=== PATIENT | male | born 1940 | race Caucasian/White ===

== ENCOUNTER 2017-05-06 14:55 | Inpatient (IN) | payer MEDICARE ==
[2017-05-06 16:36] LABS: Basophils % (Auto) 0.3 % (0.0-1.8); Eosinophils % (Auto) 1.6 % (0.0-4.3); Hematocrit 38.4 % (35.5-45.6); Mean Corpuscular HGB Conc 31 % (32-34); Mean Corpuscular Volume 74 fl (84-94); Platelet Count 200 K/mm3 (140-440); Red Blood Count 5.16 M/mm3 (3.65-5.03); Red Cell Distribution Width 16.1 % (13.2-15.2); White Blood Count 12.4 K/mm3 (4.5-11.0)
[2017-05-06 16:40] LABS: Mean Corpuscular Hemoglobin 23 pg (28-32)
[2017-05-06 16:57] LABS: BUN/Creatinine Ratio 11.09; Calcium 8.3 mg/dL (8.4-10.2); Chloride 95.7 mmol/L (98-107); Potassium 4.9 mmol/L (3.6-5.0)
--- NOTE | 2017-05-06 17:36 | Emergency Department Report ---
ED Male HPI - General Chief complaint: Urogenital-Male Stated complaint: URINARY RETENTION Time Seen by Provider: 05/06/17 17:35 Source: patient, family Mode of arrival: Ambulatory Limitations: No Limitations - History of Present Illness Initial comments: Patient reports that he was seen at urgent care last night for urinary retention. He states that he has not voided for 2 days. Came in emergency room with ED if abdomen if the x-ray from urgent care.. Patient said he is having abdominal pressure to his left lower quadrant because he hasn't urinated. No nausea or vomiting. Eyes any fever or chills. Urinary burning and frequency urgency. Past medical history of cancer of the prostate with implant treatment. Patient with umbilical hernia MD Complaint: other (able to urinate with abdominal pressure) -: During the night Location: abdomen Severity scale (0 -10): 3 Quality: other (pressure) Consistency: constant Improves with: none Worsens with: none urinary retention. denies: denies other symptoms, discharge, swelling, mass, rash, blood in urine, dysuria, fever, nausea/vomiting, incontinence - Related Data Sexually active: No Home Medications Medication Instructions Recorded Confirmed Last Taken Valsartan [Diovan] 160 mg PO QDAY 05/06/17 05/06/17 05/06/17 amLODIPine [Norvasc] 10 mg PO QDAY 05/06/17 05/06/17 05/06/17 Allergies Allergy/AdvReac Type Severity Reaction Status Date / Time No Known Allergies Allergy Unverified 05/06/17 15:50 ED Review of Systems ROS: Stated complaint: URINARY RETENTION Other details as noted in HPI Constitutional: no symptoms reported Respiratory: no symptoms reported Cardiovascular: denies: chest pain, palpitations, dyspnea on exertion, orthopnea , edema, syncope, paroxysmal nocturnal dyspnea Gastrointestinal: abdominal pain (abdominas pressure). denies: nausea, vomiting , diarrhea, constipation, hematemesis, melena Genitourinary: other (urine retention). denies: urgency, dysuria, frequency, hematuria, discharge, testicular pain, testicular mass Skin: denies: rash Neurological: denies: headache, numbness, paresthesias, confusion, abnormal gait , vertigo ED Past Medical Hx - Past Medical History Previous Medical History?: Yes Hx of Cancer: Yes (I-25 implant) Additional medical history: prostate enlarged - Surgical History Past Surgical History?: Yes Additional Surgical History: I-25seed implant for prostate cancer, Umbilical hernia repair - Family History Family history: no significant - Social History Smoking Status: Never Smoker Substance Use Type: Prescribed Other Social History: and lives with . - Medications Home Medications: Home Medications Medication Instructions Recorded Confirmed Last Taken Type Valsartan [Diovan] 160 mg PO QDAY 05/06/17 05/06/17 05/06/17 History amLODIPine [Norvasc] 10 mg PO QDAY 05/06/17 05/06/17 05/06/17 History ED Physical Exam - General Limitations: No Limitations General appearance: alert, in no apparent distress - Head Head exam: Present: atraumatic, normocephalic, normal inspection - Eye Eye exam: Present: normal appearance, PERRL, EOMI. Absent: periorbital swelling , periorbital tenderness Pupils: Present: normal accommodation - ENT ENT exam: Present: normal exam, normal orophraynx, mucous membranes moist, TM's normal bilaterally, normal external ear exam. Absent: mucous membranes dry - Neck Neck exam: Present: normal inspection, full ROM. Absent: tenderness, meningismus, lymphadenopathy - Respiratory Respiratory exam: Present: normal lung sounds bilaterally. Absent: respiratory distress - Cardiovascular Cardiovascular Exam: Present: regular rate, normal rhythm, normal heart sounds - GI/Abdominal GI/Abdominal exam: Present: distended (left lower quadrant), tenderness (lower quadrant,l), normal bowel sounds, hernia (umbilical hernia that is reducible). Absent: guarding, rebound, rigid, organomegaly, bruit, pulsatile mass - exam: Present: normal inspection. Absent: testicular tenderness, urethral discharge External exam: Present: normal external exam. Absent: erythema, swelling, bleeding - Extremities Exam Extremities exam: Present: normal inspection, full ROM, normal capillary refill , pedal edema (patient with mild swelling to lower extremity). Absent: tenderness, joint swelling, calf tenderness - Back Exam Back exam: Present: normal inspection, full ROM. Absent: tenderness, CVA tenderness (R), CVA tenderness (L), muscle spasm, paraspinal tenderness, vertebral tenderness, rash noted - Neurological Exam Neurological exam: Present: alert, oriented X3, normal gait, reflexes normal. Absent: motor sensory deficit - Psychiatric Psychiatric exam: Present: normal affect, normal mood - Skin Skin exam: Present: warm, dry, intact, normal color. Absent: rash ED Course Vital Signs 05/06/17 15:50 Temperature 98 F Pulse Rate 74 Respiratory 18 Rate Blood Pressure 161/93 O2 Sat by Pulse 100 Oximetry - Reevaluation(s) Reevaluation #1: 05/06/17 18:00 Patient had Mcmillan catheter placed due to inability to urinate and catheter was placed and returned 1600 Mls yellow urine. Reevaluation #2: 05/06/17 19:20 Patient read increased BUN/CR and after speaking with Dr. Freeman with the attending in the emergency room it was decided that patient should be admitted. I spoke with Dr. Guan who is the hospitalist and he wants BUN and creatinine to be repeated 2 hours after Mcmillan placement therefore BMP ordered for 1999. Urine culture sent. Since that he felt much better since catheter placed. She is aware that there is some possibility that he will be admitted if repeat lab work shows that he has elevated BUN and creatinine Reevaluation #3: 05/07/17 19:01 Ultrasound of bilateral kidney order ED Medical Decision Making - Lab Data Result diagrams: 05/06/17 16:12 05/06/17 19:56 Lab Results 05/06/17 05/06/17 05/06/17 Range/Units 16:12 16:12 17:15 WBC 12.4 H (4.5-11.0) K/mm3 RBC 5.16 H (3.65-5.03) M/mm3 Hgb 12.0 (11.8-15.2) gm/dl Hct 38.4 (35.5-45.6) % MCV 74 L (84-94) fl MCH 23 L (28-32) pg MCHC 31 L (32-34) % RDW 16.1 H (13.2-15.2) % Plt Count 200 (140-440) K/mm3 Lymph % (Auto) 8.3 L (13.4-35.0) % [place] % (Auto) 9.9 H (0.0-7.3) % Eos % (Auto) 1.6 (0.0-4.3) % Baso % (Auto) 0.3 (0.0-1.8) % Lymph # 1.0 L (1.2-5.4) K/mm3 [place] # 1.2 H (0.0-0.8) K/mm3 Eos # 0.2 (0.0-0.4) K/mm3 Baso # 0.0 (0.0-0.1) K/mm3 Seg Neutrophils % 79.9 H (40.0-70.0) % Seg Neutrophils # 9.9 H (1.8-7.7) K/mm3 Sodium 139 (137-145) mmol/L Potassium 4.9 (3.6-5.0) mmol/L Chloride 95.7 L (98-107) mmol/L Carbon Dioxide 24 (22-30) mmol/L Anion Gap 24 mmol/L BUN 81 H (9-20) mg/dL Creatinine 7.3 H (0.8-1.5) mg/dL Estimated GFR 7 ml/min BUN/Creatinine Ratio 11.09 % Glucose 91 (75-100) mg/dL POC Glucose (70-105) Calcium 8.3 L (8.4-10.2) mg/dL Prostate Specific Ag (0.00-4.00) ng/mL Urine Color Yellow (Yellow) Urine Turbidity Clear (Clear) Urine pH 6.0 (5.0-7.0) Ur Specific [place] 1.009 (1.003-1.030) Urine Protein 30 mg/dl (Negative) mg/dL Urine Glucose (UA) Neg (Negative) mg/dL Urine Ketones Neg (Negative) mg/dL Urine Blood Mod (Negative) Urine Nitrite Neg (Negative) Urine Bilirubin Neg (Negative) Urine Urobilinogen < 2.0 (<2.0) mg/dL Ur Leukocyte Esterase Neg (Negative) Urine WBC (Auto) 2.0 (0.0-6.0) /HPF Urine RBC (Auto) 9.0 (0.0-6.0) /HPF Urine Creatinine (0.1-20.0) mg/dL Urine Sodium mEq/L 05/06/17 05/06/17 05/07/17 Range/Units 19:56 20:57 05:00 WBC (4.5-11.0) K/mm3 RBC (3.65-5.03) M/mm3 Hgb (11.8-15.2) gm/dl Hct (35.5-45.6) % MCV (84-94) fl MCH (28-32) pg MCHC (32-34) % RDW (13.2-15.2) % Plt Count (140-440) K/mm3 Lymph % (Auto) (13.4-35.0) % [place] % (Auto) (0.0-7.3) % Eos % (Auto) (0.0-4.3) % Baso % (Auto) (0.0-1.8) % Lymph # (1.2-5.4) K/mm3 [place] # (0.0-0.8) K/mm3 Eos # (0.0-0.4) K/mm3 Baso # (0.0-0.1) K/mm3 Seg Neutrophils % (40.0-70.0) % Seg Neutrophils # (1.8-7.7) K/mm3 Sodium 140 (137-145) mmol/L Potassium 4.4 (3.6-5.0) mmol/L Chloride 97.0 L (98-107) mmol/L Carbon Dioxide 25 (22-30) mmol/L Anion Gap 22 mmol/L BUN 78 H (9-20) mg/dL Creatinine 6.7 H (0.8-1.5) mg/dL Estimated GFR 8 ml/min BUN/Creatinine Ratio 11.64 % Glucose 125 H (75-100) mg/dL POC Glucose (70-105) Calcium 8.7 (8.4-10.2) mg/dL Prostate Specific Ag > 100.00 H (0.00-4.00) ng/mL Urine Color (Yellow) Urine Turbidity (Clear) Urine pH (5.0-7.0) Ur Specific [place] (1.003-1.030) Urine Protein (Negative) mg/dL Urine Glucose (UA) (Negative) mg/dL Urine Ketones (Negative) mg/dL Urine Blood (Negative) Urine Nitrite (Negative) Urine Bilirubin (Negative) Urine Urobilinogen (<2.0) mg/dL Ur Leukocyte Esterase (Negative) Urine WBC (Auto) (0.0-6.0) /HPF Urine RBC (Auto) (0.0-6.0) /HPF Urine Creatinine 86.4 H (0.1-20.0) mg/dL Urine Sodium 54 mEq/L 05/07/17 Range/Units 16:32 WBC (4.5-11.0) K/mm3 RBC (3.65-5.03) M/mm3 Hgb (11.8-15.2) gm/dl Hct (35.5-45.6) % MCV (84-94) fl MCH (28-32) pg MCHC (32-34) % RDW (13.2-15.2) % Plt Count (140-440) K/mm3 Lymph % (Auto) (13.4-35.0) % [place] % (Auto) (0.0-7.3) % Eos % (Auto) (0.0-4.3) % Baso % (Auto) (0.0-1.8) % Lymph # (1.2-5.4) K/mm3 [place] # (0.0-0.8) K/mm3 Eos # (0.0-0.4) K/mm3 Baso # (0.0-0.1) K/mm3 Seg Neutrophils % (40.0-70.0) % Seg Neutrophils # (1.8-7.7) K/mm3 Sodium (137-145) mmol/L Potassium (3.6-5.0) mmol/L Chloride (98-107) mmol/L Carbon Dioxide (22-30) mmol/L Anion Gap mmol/L BUN (9-20) mg/dL Creatinine (0.8-1.5) mg/dL Estimated GFR ml/min BUN/Creatinine Ratio % Glucose (75-100) mg/dL POC Glucose 134 H (70-105) Calcium (8.4-10.2) mg/dL Prostate Specific Ag (0.00-4.00) ng/mL Urine Color (Yellow) Urine Turbidity (Clear) Urine pH (5.0-7.0) Ur Specific [place] (1.003-1.030) Urine Protein (Negative) mg/dL Urine Glucose (UA) (Negative) mg/dL Urine Ketones (Negative) mg/dL Urine Blood (Negative) Urine Nitrite (Negative) Urine Bilirubin (Negative) Urine Urobilinogen (<2.0) mg/dL Ur Leukocyte Esterase (Negative) Urine WBC (Auto) (0.0-6.0) /HPF Urine RBC (Auto) (0.0-6.0) /HPF Urine Creatinine (0.1-20.0) mg/dL Urine Sodium mEq/L Urine culture sent and pending Peter BUN and creatinine at 8 PM - Medical Decision Making ED course: Seen here reports that he has urinary retention that was diagnosed at urgent care and he has CD with him. He is having left lower quadrant abdominal pain with pressure and he said he has a urinate for the last 2 days. Denies any fever or chills. Patient has umbilical hernia that is reducible. Mcmillan catheter placed inpatient throughout ED stay and approximately 2 L of urine that was clear yellow returned. Patient voice instant relief of abdominal pain and pressure after bladder was empty via Mcmillan catheter. Patient had lab work done which shows that he is in acute renal failure with BUN and creatinine elevated. CBC reveals that he has elevated white count which shifted a last suspect urinary tract infection. Urinalysis sent and results pending urine culture pending. Pt covered covered with 1 g of Rocephin IM pending urine urinalysis results. Patient also with umbilical hernia that is reducible. I spoke with Dr. Beal regarding patient lab work with elevated BUN and creatinine and other abnormal lab work. Ultrasound of the kidney bilaterally was ordered and patient be admitted to the hospital. Report given to Dr. Guan who is the hospitalist. I discussed physical findings, diagnosis and plan for admission to patient and he agrees along with family. Will be admitted to hospital with urology consult. Diagnostic/Labs: The lab section for results. Ultrasound of the kidneys are pending. Assessment/plan 1. Urinary retention-status post Mcmillan placement with large amount of urine and patient report that he has relief. 2. Leukocytosis-suspect urinary tract infection but patient urinalysis is not back and he was covered with Rocephin 1 g. 3. Acute renal failure-BUN and creatinine elevated and creatinine GFR is less than 10 4. Abdominal pain secondary to urinary retention-resolved since Mcmillan placed It was decided the patient will be admitted to inpatient. Dr. Guan saw patient and additional lab work was ordered. PT and family agree with plan. He remained stable throughout ED stay Critical care attestation.: If time is entered above; I have spent that time in minutes in the direct care of this critically ill patient, excluding procedure time. ED Disposition Clinical Impression: Urinary retention ARF (acute renal failure) Qualifiers: Acute renal failure type: unspecified Qualified Code(s): N17.9 - Acute kidney failure, unspecified Abdominal pain Qualifiers: Abdominal location: left lower quadrant Qualified Code(s): R10.32 - Left lower quadrant pain Umbilical hernia Qualifiers: Obstruction and gangrene presence: without obstruction or gangrene Qualified Code(s): K42.9 - Umbilical hernia without obstruction or gangrene Leukocytosis Qualifiers: Leukocytosis type: unspecified Qualified Code(s): D72.829 - Elevated white blood cell count, unspecified Disposition: DC-09 OP ADMIT IP TO THIS HOSP Is pt being admited?: Yes Does the pt Need Aspirin: No Condition: Stable
[2017-05-06 19:13] LABS: Bilirubin,Urine NEG (Negative); Blood,Urine MOD (Negative); Ketones,Urine NEG (Negative); Leukocyte Esterase,Urine NEG (Negative); Nitrite,Urine NEG (Negative); Urobilinogen,Urine < 2.0 mg/dL (<2.0)
[2017-05-06] MEDS ORDERED: TYLENOL PO PRN (20:05)
[2017-05-06] MEDS ORDERED: PROVENTIL IH PRN (20:05)
[2017-05-06] MEDS ORDERED: DULCOLAX PR PRN (20:05)
[2017-05-06] MEDS ORDERED: MILK OF MAGNESIA PO PRN (20:05)
[2017-05-06] MEDS ORDERED: ZOFRAN IV PRN (20:05)
--- NOTE | 2017-05-06 20:08 | History and Physical Report ---
History of Present Illness Chief complaint: I dont feel good History of present illness: 77 YO Male with HTN, CaP presents to ED for evaluation. Pt states that he has not urinated for the past 2 days and has experienced abdominal discomfort for the past 2 days with worsening symptoms over the past 8 hours. Pt presented to Urgent care, and was told that he had urinary retention. Pt presented to ED for further care. Pt denies fever, chills, CP, Palpitations, NVD, Syncope, BRBPR, Hematuria, recent ill contacts. Pt seen and evaluated in ED and found to have distended bladder above the pubic symphysis, and a heredia catheter was placed with immediate return of 2000cc of clear urine. Pt had private urologist, and wants to F/U as outpatient. Past History Past Medical History: cancer, hypertension Past Surgical History: Other (Prostate implants) Social history: single, lives with family. denies: smoking, alcohol abuse, prescription drug abuse Family history: hypertension Medications and Allergies Allergies Allergy/AdvReac Type Severity Reaction Status Date / Time No Known Allergies Allergy Unverified 05/06/17 15:50 Active Meds: Active Medications Acetaminophen (Tylenol) 650 mg PO Q4H PRN PRN Reason: Pain MILD(1-3)/Fever >100.5/TOBIAS Albuterol (Proventil) 2.5 mg IH Q4HRT PRN PRN Reason: Shortness Of Breath Bisacodyl (Dulcolax) 10 mg MS QDAY PRN PRN Reason: Constipation unrelieved by [facility] Magnesium Hydroxide (Milk Of Magnesia) 30 ml PO Q4H PRN PRN Reason: Constipation Ondansetron HCl (Zofran) 4 mg IV Q8H PRN PRN Reason: N/V unrelieved by Reglan Review of Systems All systems: negative Constitutional: no weight loss, no weight gain Ears, nose, mouth and throat: no ear pain, no ear discharge, no tinnitis, no sinus pain Cardiovascular: no chest pain, no orthopnea, no palpitations, no rapid/ irregular heart beat, no syncope Respiratory: no cough, no cough with sputum, no excessive sputum Gastrointestinal: no abdominal pain, no nausea, no vomiting, no diarrhea Genitourinary Male: urinary retention, no dysuria Rectal: no pain, no incontinence, no bleeding Musculoskeletal: no neck stiffness, no neck pain, no shooting arm pain Integumentary: no rash, no pruritis, no redness Neurological: no head injury, no transient paralysis, no paralysis, no weakness Psychiatric: no anxiety, no memory loss, no change in sleep habits, no sleep disturbances Endocrine: no cold intolerance, no heat intolerance, no polyphagia, no polydipsia Hematologic/Lymphatic: no easy bruising, no easy bleeding Allergic/Immunologic: no urticaria, no allergic rhinitis, no wheezing Exam - Constitutional Vitals: Temp Pulse Resp BP Pulse Ox 98 F 74 18 161/93 100 05/06/17 15:50 05/06/17 15:50 05/06/17 15:50 05/06/17 15:50 05/06/17 15:50 General appearance: Present: mild distress - EENT Eyes: Present: PERRL ENT: hearing intact, clear oral mucosa - Neck Neck: Present: supple, normal ROM - Respiratory Respiratory effort: normal Respiratory: bilateral: CTA - Cardiovascular Heart Sounds: Present: S1 & S2. Absent: rub, click - Extremities Extremities: pulses symmetrical, No edema Peripheral Pulses: within normal limits - Abdominal General gastrointestinal: Present: soft, non-tender, non-distended, normal bowel sounds Male genitourinary: Present: normal - Integumentary Integumentary: Present: clear, warm, dry - Musculoskeletal Musculoskeletal: gait normal, strength equal bilaterally - Psychiatric Psychiatric: appropriate mood/affect, intact judgment & insight - Neurologic Neurologic: CNII-XII intact, moves all extremities Results - Labs CBC & Chem 7: 05/06/17 16:12 05/06/17 16:12 Labs: Abnormal lab results 05/06/17 05/06/17 Range/Units 16:12 16:12 WBC 12.4 H (4.5-11.0) K/mm3 RBC 5.16 H (3.65-5.03) M/mm3 MCV 74 L (84-94) fl MCH 23 L (28-32) pg MCHC 31 L (32-34) % RDW 16.1 H (13.2-15.2) % Lymph % (Auto) 8.3 L (13.4-35.0) % [place] % (Auto) 9.9 H (0.0-7.3) % Lymph # 1.0 L (1.2-5.4) K/mm3 [place] # 1.2 H (0.0-0.8) K/mm3 Seg Neutrophils % 79.9 H (40.0-70.0) % Seg Neutrophils # 9.9 H (1.8-7.7) K/mm3 Chloride 95.7 L (98-107) mmol/L BUN 81 H (9-20) mg/dL Creatinine 7.3 H (0.8-1.5) mg/dL Calcium 8.3 L (8.4-10.2) mg/dL Assessment and Plan - Patient Problems (1) Urinary retention Current Visit: Yes Status: Acute Plan to address problem: Heredia catheter placed in Ed, PSA level, Urology f/U as outpatient. (2) Accelerated hypertension Current Visit: Yes Status: Acute Plan to address problem: Monitor BP q shift, resume home medication. (3) ARF (acute renal failure) Current Visit: Yes Status: Acute Qualifiers: Acute renal failure type: A Plan to address problem: Monitor uop q shift, supportive care, renal ultrasound, urine electrolytes, (4) DVT prophylaxis Current Visit: Yes Status: Acute
--- NOTE | 2017-05-06 20:11 | Ultrasound Report ---
FINAL REPORT PROCEDURE: US RENAL BILAT TECHNIQUE: Real-time sonography in multiple planes of the kidneys, ureters and urinary bladder was performed with image documentation. CPT 23877 HISTORY: Acute kidney failure COMPARISON: No prior studies are available for comparison. FINDINGS: RIGHT kidney: Normal echotexture. No focal renal mass or calculus. There is moderate hydronephrosis. Length: 9.4 cm. LEFT kidney: Normal echotexture. No focal renal mass or calculus. There is moderate hydronephrosis. Length: 10.7cm. Bladder: Decompressed with a Mcmillan catheter. IMPRESSION: Moderate bilateral hydronephrosis is seen.
[2017-05-06 20:26] LABS: BUN/Creatinine Ratio 11.64; Calcium 8.7 mg/dL (8.4-10.2); Potassium 4.4 mmol/L (3.6-5.0)
[2017-05-07] MEDS ORDERED: ZOFRAN IV PRN (13:12)
--- NOTE | 2017-05-07 13:12 | Progress Note ---
Assessment and Plan Assessment and plan: Patient 77-year-old man with a history hypertension, prostate cancer followed by Dr. Guzman, urologist who presents with urinary retention. Bilateral renal ultrasound read as moderate bilateral hydronephrosis. Bladder decompressed a Mcmillan catheter. -Urinary Retention, bilateral hydronephrosis with a history of prostate cancer: Consulted urology, Mcmillan already placed -Prostatitis versus UTI: IV antibiotics -Acute renal failure due to obstructive uropathy, vasomotor nephropathy, poa -Leukocytosis, reactive, no sirs or sepsis found yet. -Accelerated hypertension: Add IV antihypertensive -DVT prophylaxis: add subcutaneous heparin full code History Interval history: Patient seen and examined. Follow up on current diagnosis/urinary retention. Overnight uneventful. No cp, sob, n/v or severe headaches. Imaging, old records , testing, labs, nursing notes reviewed. Hospitalist Physical - Physical exam Narrative exam: GEN: WDWN, NAD, AWAKE, ALERT, ORIENTATED x 3 HEENT: NCAT, PERRL, EOMI, OP CLEAR NECK: SUPPLE, NO THYROMEGALY, NO JVD, NO LAD CVS: RRR, NORMAL S1S2 LUNGS/CHEST: CTA B, NORMAL CHEST EXPANSION B, GOOD AIR ENTRY B ABD: SOFT, NTND, GBS, NO REBOUND OR GUARDING, no CVA tenderness, no paraspinal tenderness, Mcmillan catheter in place EXT/SKIN: NO SIGNIFICANT EDEMA OR RASH MSK: FROM X 4 EXTREMITIES NEURO: CN 2-12 GROSSLY INTACT, NO FOCAL DEFICITS PSY: CALM - Constitutional Vitals: Temp Pulse Resp BP Pulse Ox 98.1 F 70 16 173/76 98 05/07/17 07:49 05/07/17 07:49 05/07/17 07:49 05/07/17 07:49 05/07/17 09:28 General appearance: Absent: mild distress Results - Labs CBC & Chem 7: 05/06/17 16:12 05/06/17 19:56 Labs: Laboratory Last Values WBC 12.4 K/mm3 (4.5-11.0) H 05/06/17 16:12 RBC 5.16 M/mm3 (3.65-5.03) H 05/06/17 16:12 Hgb 12.0 gm/dl (11.8-15.2) 05/06/17 16:12 Hct 38.4 % (35.5-45.6) 05/06/17 16:12 MCV 74 fl (84-94) L 05/06/17 16:12 MCH 23 pg (28-32) L 05/06/17 16:12 MCHC 31 % (32-34) L 05/06/17 16:12 RDW 16.1 % (13.2-15.2) H 05/06/17 16:12 Plt Count 200 K/mm3 (140-440) 05/06/17 16:12 Lymph % (Auto) 8.3 % (13.4-35.0) L 05/06/17 16:12 [place] % (Auto) 9.9 % (0.0-7.3) H 05/06/17 16:12 Eos % (Auto) 1.6 % (0.0-4.3) 05/06/17 16:12 Baso % (Auto) 0.3 % (0.0-1.8) 05/06/17 16:12 Lymph # 1.0 K/mm3 (1.2-5.4) L 05/06/17 16:12 [place] # 1.2 K/mm3 (0.0-0.8) H 05/06/17 16:12 Eos # 0.2 K/mm3 (0.0-0.4) 05/06/17 16:12 Baso # 0.0 K/mm3 (0.0-0.1) 05/06/17 16:12 Seg Neutrophils % 79.9 % (40.0-70.0) H 05/06/17 16:12 Seg Neutrophils # 9.9 K/mm3 (1.8-7.7) H 05/06/17 16:12 Sodium 140 mmol/L (137-145) 05/06/17 19:56 Potassium 4.4 mmol/L (3.6-5.0) 05/06/17 19:56 Chloride 97.0 mmol/L (98-107) L 05/06/17 19:56 Carbon Dioxide 25 mmol/L (22-30) 05/06/17 19:56 Anion Gap 22 mmol/L 05/06/17 19:56 BUN 78 mg/dL (9-20) H 05/06/17 19:56 Creatinine 6.7 mg/dL (0.8-1.5) H 05/06/17 19:56 Estimated GFR 8 ml/min 05/06/17 19:56 BUN/Creatinine Ratio 11.64 % 05/06/17 19:56 Glucose 125 mg/dL (75-100) H 05/06/17 19:56 Calcium 8.7 mg/dL (8.4-10.2) 05/06/17 19:56 Prostate Specific Ag > 100.00 ng/mL (0.00-4.00) H 05/06/17 20:57 Urine Color Yellow (Yellow) 05/06/17 17:15 Urine Turbidity Clear (Clear) 05/06/17 17:15 Urine pH 6.0 (5.0-7.0) 05/06/17 17:15 Ur Specific [place] 1.009 (1.003-1.030) 05/06/17 17:15 Urine Protein 30 mg/dl mg/dL (Negative) 05/06/17 17:15 Urine Glucose (UA) Neg mg/dL (Negative) 05/06/17 17:15 Urine Ketones Neg mg/dL (Negative) 05/06/17 17:15 Urine Blood Mod (Negative) 05/06/17 17:15 Urine Nitrite Neg (Negative) 05/06/17 17:15 Urine Bilirubin Neg (Negative) 05/06/17 17:15 Urine Urobilinogen < 2.0 mg/dL (<2.0) 05/06/17 17:15 Ur Leukocyte Esterase Neg (Negative) 05/06/17 17:15 Urine WBC (Auto) 2.0 /HPF (0.0-6.0) 05/06/17 17:15 Urine RBC (Auto) 9.0 /HPF (0.0-6.0) 05/06/17 17:15 Urine Creatinine 86.4 mg/dL (0.1-20.0) H 05/07/17 05:00 Urine Sodium 54 mEq/L 05/07/17 05:00
[2017-05-07] MEDS ORDERED: DIOVAN PO SCH (15:00)
--- NOTE | 2017-05-07 15:21 | Admit Criteria Form ---
Admission Criteria Documentation: UROLOGIC DISEASE G Clinical Indications for Admission to Inpatient Care (Place ' X' for any and all applicable criteria): Hospital admission is needed for appropriate care of the patient because of 1 or more of the following: [ ]I. New-onset Reduced urine output, or hydronephrosis remaining after emergency or observation level care (as appropriate ) [ X]II. Renal disease needing inpatient care indicated by 1 or more of the following(2)(3)(4): [X ]a) Acute renal failure [ ]b) Significant uremic complications [ ]c) Acute kidney injury (that does not qualify as Acute renal failure ) requiring inpatient care indicated by ALL of the following(5)(6)(7)(8) (9): [ ]i) Worsening clinical status (eg, rising creatinine) despite outpatient and observation care treatment (eg, hydration) [ ]ii) Acute kidney injury indicated by 1 or more of the following: [ ]1) 2-fold or more rise in serum creatinine from baseline [ ]2) Reduction of more than 50% in estimated glomerular filtration rate from baseline [ ]3) Urine output less than 0.5 mL/kg/hr for 12 hours despite adequate volume status [ ]d) Systemic cause (eg, Goodpasture syndrome ) needing inpatient care [ ]e) Rapidly progressive renal disease needing inpatient care (eg, plasmapheresis, immunosuppression ) Anasarca needing inpatient care [ ]f) Hemoptysis [ ]g) Hemolysis, thrombosis, or infraction [ ]h) Anasarca needing inpatient care [ ]III. New-onset or uncontrolled nephrogenic diabetes insipidus [ ]IV. Urologic infection requiring inpatient care as indicated by 1 or more of the following(10)(11)(12): [ ]a) Hemodynamic instability [ ]b) Dehydration that is severe or persistent [ ]c) Failure of outpatient treatment [ ]d) Myesha's gangrene [ ]e) Urinary obstruction [ ]f) Immunocompromised state (eg, chronic steroid use ) [ ]g) Known renal or urologic abnormalities(eg, indwelling catheter, structural abnormalities ) [ ]h) Recent urologic manipulation or procedure Urinary obstruction [ ]i) Abscess requiring drainage Immunocompromised state [ ]V. Acute urinary retention requiring inpatient management as indicated by ANY ONE of the following(1)(13): [ ]a) Retention cannot be alleviated via emergency or observation level care (eg, urinary catheter placement) [ ]b) Hemodynamic instability [ ]c) Acute neurologic etiology (eg, cauda equina) [ ]d) Dehydration or other complications not manageable with emergency or observation level care [ ]e) Acute kidney injury (that does not qualify as Acute renal failure ) requiring inpatient care indicated by ALL of the following(5)(6)(7)(8) (9): [ ]i) Acute kidney injury indicated by ANY ONE of the following: [ ]1) 2-fold or more rise in serum creatinine from baseline [ ]2) Reduction of more than 50% in estimated glomerular filtration rate from baseline [ ]ii) Worsening clinical status (eg, rising creatinine) despite outpatient and observation care treatment (eg, hydration) [ ]. Gross hematuria requiring inpatient management as indicated by ANY ONE of the following(1)(2): [ ]a) Evidence of renal obstruction [ ]b) Reduced urine output [ ]c) Clot retention after urinary catheterization and irrigation [ ]d) Severe Anemia [ ]e) Systemic cause needing inpatient treatment (eg, Goodpasture syndrome) [ ]VII. Priapism not responsive to emergency or observation care treatment [ ]VII. Scrotal, testicular, or epididymal disorder requiring inpatient care indicated by 1 or more of the following(1)(14)(15)(16): [ ]a) Scrotal edema or infection not manageable with emergency or observation level care [ ]b) Orchitis not manageable with emergency or observation level care [ ]c) Epididymitis not manageable with emergency or observation level of care [ ]d) Other scrotal, testicular, or epididymal disorder (eg, infection, inflammation) not manageable with emergency or observation level care [ ]IX. Complications of transplanted kidney indicated by 1 or more of the following [ ]a) Acute graft rejection requiring inpatient management (eg, intravenous immunosuppression) [ ]b) Acute kidney injury indicated by ALL of the following i) Acute kidney injury indicated by 1 or more of the following 1) 2-fold or more rise in serum creatinine from baseline 2) Reduction of more than 50% in estimated glomerular filtration rate from baseline 3) Urine output less than 0.5 mL/kg/hr for 12 hours despite adequate volume status ii) Kidney injury too severe or not responsive to outpatient and observation care treatment (eg, hydration) [ ]c) Infection requiring inpatient management (eg, Hemodynamic instability, need for intravenous antimicrobial treatment) [ ]d) Other complication of transplanted kidney requiring patient management (eg, severe diarrhea leading to malabsorption) [ ]X. Trauma to renal, genital, or urologic system requiring inpatient medical care [ ]XI. Urologic Disease condition, symptom, or finding for which emergency and observation care have failed or are not considered appropriate. The original [employer] content created by [employer] has been revised. The portions of the content which have been revised are identified through the use of italic text or in bold, and [facility] has neither reviewed nor approved the modified material. All other unmodified content is copyright [facility] ([employer]). Please see references footnoted in the original [facility] edition 2016 Admission Criteria Met: Yes
[2017-05-07] MEDS: NORVASC PO SCH (16:14)
[2017-05-08 07:11] LABS: Hematocrit 34.5 % (35.5-45.6); Hemoglobin 11.1 gm/dl (11.8-15.2); Mean Corpuscular HGB Conc 32 % (32-34); Mean Corpuscular Volume 74 fl (84-94); Platelet Count 191 K/mm3 (140-440); Red Blood Count 4.68 M/mm3 (3.65-5.03); Red Cell Distribution Width 16.5 % (13.2-15.2)
[2017-05-08 07:30] LABS: Mean Corpuscular Hemoglobin 24 pg (28-32)
[2017-05-08 07:33] LABS: BUN/Creatinine Ratio 16.8; Chloride 102.7 mmol/L (98-107); Potassium 3.5 mmol/L (3.6-5.0)
[2017-05-08] MEDS: NORVASC PO SCH (10:41)
--- NOTE | 2017-05-08 11:52 | Progress Note ---
Assessment and Plan Assessment and plan: Patient 77-year-old man with a history hypertension, prostate cancer followed by Dr. Guzman, urologist who presents with urinary retention. PSA was greater than 100, Bilateral renal ultrasound read as moderate bilateral hydronephrosis. Bladder decompressed by Heredia catheter. -Urinary Retention, bilateral hydronephrosis with a history of prostate cancer: Consulted urology and d/w dr. Linda, Heredia already placed -Prostatitis/UTI: IV antibiotics -Acute renal failure due to obstructive uropathy, vasomotor nephropathy, poa: improved from 6.7 to 4.7 with heredia decompression, Dr. Linda, recommends pt be followed by renal also. -Leukocytosis, reactive, no sirs or sepsis found yet. -Accelerated hypertension: stop Diovan, added Imdur and IV hydralazine when necessary -DVT prophylaxis: add subcutaneous heparin -anemia chronic disease: Continue to monitor closely full code Disposition: Continue inpatient care, once creatinine plateaus he can be discharged with a Heredia. Await urine culture also History Interval history: Patient seen and examined. Follow up on current diagnosis/urinary retention. Overnight uneventful. No cp, sob, n/v or severe headaches. Imaging, old records , testing, labs, nursing notes reviewed. Hospitalist Physical - Physical exam Narrative exam: GEN: WDWN, NAD, AWAKE, ALERT, ORIENTATED x 3 HEENT: NCAT, PERRL, EOMI, OP CLEAR NECK: SUPPLE, NO THYROMEGALY, NO JVD, NO LAD CVS: RRR, NORMAL S1S2 LUNGS/CHEST: CTA B, NORMAL CHEST EXPANSION B, GOOD AIR ENTRY B ABD: SOFT, NTND, GBS, NO REBOUND OR GUARDING, no CVA tenderness, no paraspinal tenderness, Heredia catheter in place EXT/SKIN: NO SIGNIFICANT EDEMA OR RASH MSK: FROM X 4 EXTREMITIES NEURO: CN 2-12 GROSSLY INTACT, NO FOCAL DEFICITS PSY: CALM - Constitutional Vitals: Temp Pulse Resp BP Pulse Ox 98.1 F 72 18 185/92 100 05/08/17 08:19 05/08/17 10:00 05/08/17 08:19 05/08/17 10:41 05/08/17 08:19 General appearance: Absent: mild distress Results - Labs CBC & Chem 7: 05/08/17 06:40 05/08/17 06:40 Labs: Laboratory Last Values WBC 9.0 K/mm3 (4.5-11.0) 05/08/17 06:40 RBC 4.68 M/mm3 (3.65-5.03) 05/08/17 06:40 Hgb 11.1 gm/dl (11.8-15.2) L 05/08/17 06:40 Hct 34.5 % (35.5-45.6) L 05/08/17 06:40 MCV 74 fl (84-94) L 05/08/17 06:40 MCH 24 pg (28-32) L 05/08/17 06:40 MCHC 32 % (32-34) 05/08/17 06:40 RDW 16.5 % (13.2-15.2) H 05/08/17 06:40 Plt Count 191 K/mm3 (140-440) 05/08/17 06:40 Lymph % (Auto) 8.3 % (13.4-35.0) L 05/06/17 16:12 [place] % (Auto) 9.9 % (0.0-7.3) H 05/06/17 16:12 Eos % (Auto) 1.6 % (0.0-4.3) 05/06/17 16:12 Baso % (Auto) 0.3 % (0.0-1.8) 05/06/17 16:12 Lymph # 1.0 K/mm3 (1.2-5.4) L 05/06/17 16:12 [place] # 1.2 K/mm3 (0.0-0.8) H 05/06/17 16:12 Eos # 0.2 K/mm3 (0.0-0.4) 05/06/17 16:12 Baso # 0.0 K/mm3 (0.0-0.1) 05/06/17 16:12 Seg Neutrophils % 79.9 % (40.0-70.0) H 05/06/17 16:12 Seg Neutrophils # 9.9 K/mm3 (1.8-7.7) H 05/06/17 16:12 Sodium 147 mmol/L (137-145) H 05/08/17 06:40 Potassium 3.5 mmol/L (3.6-5.0) L D 05/08/17 06:40 Chloride 102.7 mmol/L (98-107) 05/08/17 06:40 Carbon Dioxide 25 mmol/L (22-30) 05/08/17 06:40 Anion Gap 23 mmol/L 05/08/17 06:40 BUN 79 mg/dL (9-20) H 05/08/17 06:40 Creatinine 4.7 mg/dL (0.8-1.5) H 05/08/17 06:40 Estimated GFR 12 ml/min 05/08/17 06:40 BUN/Creatinine Ratio 16.80 % 05/08/17 06:40 Glucose 76 mg/dL (75-100) 05/08/17 06:40 POC Glucose 134 (70-105) H 05/07/17 16:32 Calcium 8.0 mg/dL (8.4-10.2) L 05/08/17 06:40 Prostate Specific Ag > 100.00 ng/mL (0.00-4.00) H 05/06/17 20:57 Urine Color Yellow (Yellow) 05/06/17 17:15 Urine Turbidity Clear (Clear) 05/06/17 17:15 Urine pH 6.0 (5.0-7.0) 05/06/17 17:15 Ur Specific [place] 1.009 (1.003-1.030) 05/06/17 17:15 Urine Protein 30 mg/dl mg/dL (Negative) 05/06/17 17:15 Urine Glucose (UA) Neg mg/dL (Negative) 05/06/17 17:15 Urine Ketones Neg mg/dL (Negative) 05/06/17 17:15 Urine Blood Mod (Negative) 05/06/17 17:15 Urine Nitrite Neg (Negative) 05/06/17 17:15 Urine Bilirubin Neg (Negative) 05/06/17 17:15 Urine Urobilinogen < 2.0 mg/dL (<2.0) 05/06/17 17:15 Ur Leukocyte Esterase Neg (Negative) 05/06/17 17:15 Urine WBC (Auto) 2.0 /HPF (0.0-6.0) 05/06/17 17:15 Urine RBC (Auto) 9.0 /HPF (0.0-6.0) 05/06/17 17:15 Urine Creatinine 86.4 mg/dL (0.1-20.0) H 05/07/17 05:00 Urine Sodium 54 mEq/L 05/07/17 05:00
--- NOTE | 2017-05-08 12:26 | Consultation ---
History of Present Illness - Reason for Consult Consult date: 05/08/17 acute renal failure, hypernatremia - History of Present Illness The patient is a 77 YO AAM with history significant for HTN and Ca Prostate presented to ED after he was unable to urinate for about 2 days. associated symptoms include abdominal discomfort. Pt denies any dysuria, hematuria, fever , chills, CP, N, V, D, Syncope or trauma. Pt was noted to have distended bladder above the pubic symphysis, and a heredia catheter was placed with immediate return of 2000cc of clear urine. Creatinine was 7.3 on admission and has imrpoved to 4.7 today. Baseline renal function is unknown. Past History Past Medical History: cancer, hypertension Past Surgical History: Other (Prostate implants) Social history: single, lives with family. denies: smoking, alcohol abuse, prescription drug abuse Family history: hypertension Medications and Allergies Allergies Allergy/AdvReac Type Severity Reaction Status Date / Time No Known Allergies Allergy Unverified 05/06/17 15:50 Home Medications Medication Instructions Recorded Confirmed Last Taken Type Valsartan [Diovan] 160 mg PO QDAY 05/06/17 05/06/17 05/06/17 History amLODIPine [Norvasc] 10 mg PO QDAY 05/06/17 05/06/17 05/06/17 History Active Meds: Active Medications Acetaminophen (Tylenol) 650 mg PO Q4H PRN PRN Reason: Pain MILD(1-3)/Fever >100.5/TOBIAS Albuterol (Proventil) 2.5 mg IH Q4HRT PRN PRN Reason: Shortness Of Breath Amlodipine Besylate (Norvasc) 10 mg PO QDAY [facility] Last Admin: 05/08/17 10:41 Dose: 10 mg Bisacodyl (Dulcolax) 10 mg [place] QDAY PRN PRN Reason: Constipation unrelieved by MOM Heparin Sodium (Porcine) (Heparin) 5,000 unit SUB-Q Q12HR [facility] Hydralazine HCl (Apresoline) 10 mg IV Q4HR PRN PRN Reason: Blood Pressure Isosorbide Mononitrate (Imdur) 30 mg PO QDAY [facility] Ondansetron HCl (Zofran) 4 mg IV Q4H PRN PRN Reason: Nausea And Vomiting Review of Systems Constitutional: no weight loss, no weight gain, no fever, no chills, no anorexia , no poor appetite Ears, nose, mouth and throat: no epistaxis Cardiovascular: edema, leg edema, no chest pain, no orthopnea, no syncope, no lightheadedness, no shortness of breath, no dyspnea on exertion Respiratory: no cough, no hemoptysis, no shortness of breath, no dyspnea on exertion Gastrointestinal: no abdominal pain, no nausea, no vomiting, no diarrhea, no hematemesis, no BRBPR, no melena, no jaundice Genitourinary Male: urinary retention, no dysuria, no hematuria, no incontinence , no kidney stones Rectal: no bleeding Musculoskeletal: no neck stiffness, no hot joints Integumentary: no rash, no wounds, no jaundice Neurological: no paralysis, no weakness, no aphasia Psychiatric: no disorientation Endocrine: no weight change Hematologic/Lymphatic: no easy bleeding Exam - Vital Signs Vital signs: Vital Signs Temp Pulse Resp BP Pulse Ox 98 F 74 18 161/93 100 05/06/17 15:50 05/06/17 15:50 05/06/17 15:50 05/06/17 15:50 05/06/17 15:50 - General Appearance General appearance: well-developed, well-nourished, appears stated age, other ( no distress) EENT: ATNC, PERRL, mucous membranes moist, hearing intact, vision intact Neck: Present: neck supple Respiratory: Clear to Ascultation Heart: regular, S1S2, no murmurs Gastrointestinal: Present: normoactive bowel sounds. Absent: tenderness, distended Integumentary: no rash Neurologic: no focal deficit, no asterixis, alert and oriented x3 Musculoskeletal: Present: other (1+ edema of both LEs noted) Psychiatric: mood/affect appropriate, cooperative Results - Lab Results 05/08/17 06:40 05/08/17 06:40 Most recent lab results Calcium 8.0 mg/dL (8.4-10.2) L 05/08/17 06:40 Urine Creatinine 86.4 mg/dL (0.1-20.0) H 05/07/17 05:00 Urine Sodium 54 mEq/L 05/07/17 05:00 - Image Kidney/bladder ultrasound: report reviewed Assessment and Plan - Patient Problems (1) ARF (acute renal failure) Current Visit: Yes Status: Acute Qualifiers: Acute renal failure type: A Plan to address problem: Acute kidney injury secondary to Urinary retention. Since inserting Heredia catheter renal function is improving. Baseline renal function is unknown. Will follow. (2) Urinary retention Current Visit: Yes Status: Acute Plan to address problem: s/p heredia catheter. (3) Accelerated hypertension Current Visit: Yes Status: Acute Plan to address problem: On Amlodipine. Add Cardura. Diuretics prn for edema. (4) Leukocytosis Current Visit: Yes Status: Acute Qualifiers: Leukocytosis type: unspecified Qualified Code(s): D72.829 - Elevated white blood cell count, unspecified
[2017-05-08] MEDS: IMDUR PO SCH (12:43)
[2017-05-08] MEDS: HEPARIN SUB-Q SCH ×2 (12:45→21:30)
[2017-05-08] MEDS ORDERED: HCTZ PO ONE (13:00)
[2017-05-08] MEDS ORDERED: K-DUR PO ONE (13:00)
[2017-05-08] MEDS ORDERED: APRESOLINE IV PRN (14:00)
--- NOTE | 2017-05-08 19:58 | Progress Note ---
Objective - Constitutional Vitals: Vital Signs - 12hr 05/08/17 05/08/17 05/08/17 08:19 10:00 10:41 Temperature 98.1 F Pulse Rate 62 Pulse Rate [ 72 Apical] Respiratory 18 Rate Blood Pressure 133/74 185/92 O2 Sat by Pulse 100 Oximetry 05/08/17 05/08/17 05/08/17 12:07 12:43 17:37 Temperature 97.5 F L 98.2 F Pulse Rate 62 73 62 Pulse Rate [ Apical] Respiratory 18 18 Rate Blood Pressure 186/92 182/88 133/60 O2 Sat by Pulse 100 98 Oximetry - Labs CBC & Chem 7: 05/08/17 06:40 05/08/17 06:40 Labs: Abnormal lab results 05/08/17 05/08/17 05/08/17 Range/Units 06:40 06:40 11:21 Hgb 11.1 L (11.8-15.2) gm/dl Hct 34.5 L (35.5-45.6) % MCV 74 L (84-94) fl MCH 24 L (28-32) pg RDW 16.5 H (13.2-15.2) % Sodium 147 H (137-145) mmol/L Potassium 3.5 L D (3.6-5.0) mmol/L BUN 79 H (9-20) mg/dL Creatinine 4.7 H (0.8-1.5) mg/dL POC Glucose 135 H (70-105) Calcium 8.0 L (8.4-10.2) mg/dL
--- NOTE | 2017-05-08 19:58 | Consultation ---
History of Present Illness - Reason for Consult Consult date: 05/08/17 Past History Past Medical History: cancer, hypertension Past Surgical History: Other (Prostate implants) Social history: single, lives with family. denies: smoking, alcohol abuse, prescription drug abuse Family history: hypertension Medications and Allergies Allergies Allergy/AdvReac Type Severity Reaction Status Date / Time No Known Allergies Allergy Unverified 05/06/17 15:50 Home Medications Medication Instructions Recorded Confirmed Last Taken Type Valsartan [Diovan] 160 mg PO QDAY 05/06/17 05/06/17 05/06/17 History amLODIPine [Norvasc] 10 mg PO QDAY 05/06/17 05/06/17 05/06/17 History Active Meds: Active Medications Acetaminophen (Tylenol) 650 mg PO Q4H PRN PRN Reason: Pain MILD(1-3)/Fever >100.5/TOBIAS Albuterol (Proventil) 2.5 mg IH Q4HRT PRN PRN Reason: Shortness Of Breath Amlodipine Besylate (Norvasc) 10 mg PO QDAY [facility] Last Admin: 05/08/17 10:41 Dose: 10 mg Bisacodyl (Dulcolax) 10 mg [place] QDAY PRN PRN Reason: Constipation unrelieved by MOM Doxazosin Mesylate (Cardura) 2 mg PO [facility] Heparin Sodium (Porcine) (Heparin) 5,000 unit SUB-Q Q12HR [facility] Last Admin: 05/08/17 12:45 Dose: 5,000 unit Hydralazine HCl (Apresoline) 10 mg IV Q4HR PRN PRN Reason: Blood Pressure Isosorbide Mononitrate (Imdur) 30 mg PO QDAY [facility] Last Admin: 05/08/17 12:43 Dose: 30 mg Ondansetron HCl (Zofran) 4 mg IV Q4H PRN PRN Reason: Nausea And Vomiting Exam - Constitutional Vitals: Temp Pulse Resp BP Pulse Ox 98.2 F 62 18 133/60 98 05/08/17 17:37 05/08/17 17:37 05/08/17 17:37 05/08/17 17:37 05/08/17 17:37 Results - Labs CBC & Chem 7: 05/08/17 06:40 05/08/17 06:40 Labs: Abnormal lab results 05/08/17 05/08/17 05/08/17 Range/Units 06:40 06:40 11:21 Hgb 11.1 L (11.8-15.2) gm/dl Hct 34.5 L (35.5-45.6) % MCV 74 L (84-94) fl MCH 24 L (28-32) pg RDW 16.5 H (13.2-15.2) % Sodium 147 H (137-145) mmol/L Potassium 3.5 L D (3.6-5.0) mmol/L BUN 79 H (9-20) mg/dL Creatinine 4.7 H (0.8-1.5) mg/dL POC Glucose 135 H (70-105) Calcium 8.0 L (8.4-10.2) mg/dL Assessment and Plan TA
[2017-05-08] MEDS: CARDURA PO SCH (21:28)
[2017-05-09 04:21] LABS: Hematocrit 30.8 % (35.5-45.6); Hemoglobin 10.2 gm/dl (11.8-15.2); Mean Corpuscular HGB Conc 33 % (32-34); Mean Corpuscular Volume 74 fl (84-94); Platelet Count 168 K/mm3 (140-440); Red Blood Count 4.18 M/mm3 (3.65-5.03); White Blood Count 8.5 K/mm3 (4.5-11.0)
[2017-05-09 04:22] LABS: Mean Corpuscular Hemoglobin 24 pg (28-32)
[2017-05-09 04:50] LABS: BUN/Creatinine Ratio 20.3; Calcium 7.9 mg/dL (8.4-10.2)
[2017-05-09 04:51] LABS: Magnesium 2.2 mg/dL (1.7-2.3)
[2017-05-09 05:13] LABS: Potassium 4.3 mmol/L (3.6-5.0)
--- NOTE | 2017-05-09 09:19 | Progress Note ---
Assessment and Plan - Patient Problems (1) ARF (acute renal failure) Status: Acute Qualifiers: Acute renal failure type: A Plan to address problem: Acute kidney injury secondary to Urinary retention. Renal function is improving. Baseline renal function is unknown. Will follow. (2) Urinary retention Status: Acute Plan to address problem: s/p heredia catheter. (3) Accelerated hypertension Status: Acute Plan to address problem: BP is improving. Diuretics prn for edema. (4) Leukocytosis Status: Acute Qualifiers: Leukocytosis type: unspecified Qualified Code(s): D72.829 - Elevated white blood cell count, unspecified Subjective Date of service: 05/09/17 Interval history: Patient is doing better. Objective - Vital Signs Vital signs: Vital Signs - 12hr 05/08/17 05/09/17 05/09/17 21:28 04:00 07:00 Temperature 98.5 F 99.7 F H Pulse Rate 70 81 Respiratory 20 18 Rate Blood Pressure 177/99 168/81 180/81 O2 Sat by Pulse 97 Oximetry - General Appearance General appearance: well-developed, well-nourished, appears stated age, other ( no distress) EENT: ATNC, PERRL, mucous membranes moist, hearing intact, vision intact Neck: supple Respiratory: Present: Clear to Ascultation Cardiology: regular, S1S2, no murmurs Gastrointestinal: normoactive bowel sounds Integumentary: no rash Neurologic: no focal deficit, no asterixis, alert and oriented x3 Musculoskeletal: other (1+ edema of both LEs noted) Psychiatric: mood/affect appropriate, cooperative - Lab 05/10/17 06:53 05/10/17 06:53 Most recent lab results Calcium 7.9 mg/dL (8.4-10.2) L 05/09/17 03:20 Magnesium 2.20 mg/dL (1.7-2.3) 05/09/17 03:20 Urine Creatinine 86.4 mg/dL (0.1-20.0) H 05/07/17 05:00 Urine Sodium 54 mEq/L 05/07/17 05:00
[2017-05-09] MEDS: NORVASC PO SCH (10:20)
[2017-05-09] MEDS: IMDUR PO SCH (10:21)
[2017-05-09] MEDS: HEPARIN SUB-Q SCH ×2 (10:23→22:28)
[2017-05-09] MEDS ORDERED: HCTZ PO ONE (11:00)
--- NOTE | 2017-05-09 15:47 | Cat Scan Report ---
CT scan of abdomen and pelvis without IV contrast: History: Bilateral hydronephrosis. Findings: Normal lung bases. No pleural or pericardial effusion. Right hilar calcification. Normal liver spleen pancreas. Normal gallbladder. Normal adrenals. Bilaterally dilatation of intrarenal collecting system and the ureters. Thickwalled urinary bladder with Mcmillan catheter. Gaseous colon with moderate volume stool in colon. Normal appendix. Umbilical hernia containing loop of bowel without incarceration or strangulation. Measures 5 cm in diameter. Impression: Bilateral hydronephrosis. Thick walled urinary bladder. Umbilical hernia as detailed above. No bowel obstruction.
--- NOTE | 2017-05-09 17:37 | Progress Note ---
Subjective Date of service: 05/09/17 Interval history: Patient 77-year-old man with a history hypertension, prostate cancer followed by Dr. Guzman, urologist who presents with urinary retention. Bilateral renal ultrasound read as moderate bilateral hydronephrosis. Bladder decompressed a Heredia catheter. -Urinary Retention, bilateral hydronephrosis with a history of prostate cancer: Consulted urology, Heredia already placed -Prostatitis versus UTI: IV antibiotics -Acute renal failure due to obstructive uropathy -Leukocytosis, reactive, no sirs or sepsis found yet. heredia draining brittnee urine Jodi Lassiter cell - [phone] (Ms. Lassiter' mother is a friend of pt) Cr 3.3 (trending down) PSA >100 A/P retention prostate cancer (s/p radiation in past - non compliant) start flomax & casodex / megace for hot flashes PRN (scripts on chart) home with heredia when stable (may need visiting nurse) office appt 2-3 weeks for fill-flow & repeat psa (Eligard shot) Objective - Constitutional Vitals: Vital Signs - 12hr 05/09/17 05/09/17 05/09/17 07:00 10:00 10:20 Temperature 99.7 F H Pulse Rate 81 Pulse Rate [ 71 Apical] Respiratory 18 Rate Blood Pressure 180/81 142/74 O2 Sat by Pulse 97 Oximetry 05/09/17 05/09/17 10:21 11:00 Temperature 99.6 F Pulse Rate 84 Pulse Rate [ Apical] Respiratory 18 Rate Blood Pressure 142/74 122/61 O2 Sat by Pulse 96 Oximetry - Labs CBC & Chem 7: 05/09/17 03:20 05/09/17 03:20 Labs: Abnormal lab results 05/08/17 05/09/17 05/09/17 Range/Units 21:17 03:20 03:20 Hgb 10.2 L (11.8-15.2) gm/dl Hct 30.8 L (35.5-45.6) % MCV 74 L (84-94) fl MCH 24 L (28-32) pg RDW 16.0 H (13.2-15.2) % Sodium 147 H (137-145) mmol/L BUN 67 H (9-20) mg/dL Creatinine 3.3 H (0.8-1.5) mg/dL POC Glucose 139 H (70-105) Calcium 7.9 L (8.4-10.2) mg/dL Prostate Specific Ag (0.00-4.00) ng/mL PTH Intact (15-65) pg/mL 05/09/17 05/09/17 05/09/17 Range/Units 03:20 06:24 15:37 Hgb (11.8-15.2) gm/dl Hct (35.5-45.6) % MCV (84-94) fl MCH (28-32) pg RDW (13.2-15.2) % Sodium (137-145) mmol/L BUN (9-20) mg/dL Creatinine (0.8-1.5) mg/dL POC Glucose 121 H (70-105) Calcium (8.4-10.2) mg/dL Prostate Specific Ag > 100.00 H (0.00-4.00) ng/mL PTH Intact 142.8 H (15-65) pg/mL
--- NOTE | 2017-05-09 19:13 | Progress Note ---
Assessment and Plan Assessment and plan: Patient 77-year-old man with a history hypertension, prostate cancer followed by Dr. Guzman, urologist who presented with urinary retention 1. Urinary retention PSA>100 Renal ultrasound showed bilateral hydronephrosis Bladder decompressed by Heredia catheter Urology following and started Flomax and Casodex 2. Prostatitis/UTI Continue IV antibiotics 3. Acute renal failure likely superimposed on chronic kidney disease Due to obstructive uropathy Improved with heredia decompression Monitor BUN/creatinine and electrolytes 4. Hypertension Adjust antihypertensive regimen for better BP control 5. DVT prophylaxis Heparin subcutaneous due to renal insufficiency History Interval history: feeling better Hospitalist Physical - Constitutional Vitals: Temp Pulse Resp BP Pulse Ox 99.6 F 84 18 122/61 96 05/09/17 11:00 05/09/17 11:00 05/09/17 11:00 05/09/17 11:00 05/09/17 11:00 General appearance: Present: no acute distress - EENT Eyes: Present: PERRL, EOM intact - Neck Neck: Present: supple, normal ROM. Absent: masses or JVD - Respiratory Respiratory effort: normal Respiratory: bilateral: CTA, negative: rales, rhonchi - Cardiovascular Rhythm: regular Heart Sounds: Present: S1 & S2. Absent: systolic murmur - Extremities Extremities: no ischemia - Abdominal General gastrointestinal: soft, non-tender, non-distended, normal bowel sounds - Neurologic Neurologic: CNII-XII intact, no focal deficits - Additional findings Additional findings: - [facility] Results - Labs CBC & Chem 7: 05/10/17 06:53 05/10/17 06:53 Labs: Laboratory Last Values WBC 8.5 K/mm3 (4.5-11.0) 05/09/17 03:20 RBC 4.18 M/mm3 (3.65-5.03) 05/09/17 03:20 Hgb 10.2 gm/dl (11.8-15.2) L 05/09/17 03:20 Hct 30.8 % (35.5-45.6) L 05/09/17 03:20 MCV 74 fl (84-94) L 05/09/17 03:20 MCH 24 pg (28-32) L 05/09/17 03:20 MCHC 33 % (32-34) 05/09/17 03:20 RDW 16.0 % (13.2-15.2) H 05/09/17 03:20 Plt Count 168 K/mm3 (140-440) 05/09/17 03:20 Lymph % (Auto) 8.3 % (13.4-35.0) L 05/06/17 16:12 [place] % (Auto) 9.9 % (0.0-7.3) H 05/06/17 16:12 Eos % (Auto) 1.6 % (0.0-4.3) 05/06/17 16:12 Baso % (Auto) 0.3 % (0.0-1.8) 05/06/17 16:12 Lymph # 1.0 K/mm3 (1.2-5.4) L 05/06/17 16:12 [place] # 1.2 K/mm3 (0.0-0.8) H 05/06/17 16:12 Eos # 0.2 K/mm3 (0.0-0.4) 05/06/17 16:12 Baso # 0.0 K/mm3 (0.0-0.1) 05/06/17 16:12 Seg Neutrophils % 79.9 % (40.0-70.0) H 05/06/17 16:12 Seg Neutrophils # 9.9 K/mm3 (1.8-7.7) H 05/06/17 16:12 Sodium 147 mmol/L (137-145) H 05/09/17 03:20 Potassium 4.3 mmol/L (3.6-5.0) D 05/09/17 03:20 Chloride 105.0 mmol/L (98-107) 05/09/17 03:20 Carbon Dioxide 23 mmol/L (22-30) 05/09/17 03:20 Anion Gap 23 mmol/L 05/09/17 03:20 BUN 67 mg/dL (9-20) H 05/09/17 03:20 Creatinine 3.3 mg/dL (0.8-1.5) H 05/09/17 03:20 Estimated GFR 18 ml/min 05/09/17 03:20 BUN/Creatinine Ratio 20.30 % 05/09/17 03:20 Glucose 93 mg/dL (75-100) 05/09/17 03:20 POC Glucose 121 (70-105) H 05/09/17 06:24 Calcium 7.9 mg/dL (8.4-10.2) L 05/09/17 03:20 Magnesium 2.20 mg/dL (1.7-2.3) 05/09/17 03:20 Prostate Specific Ag > 100.00 ng/mL (0.00-4.00) H 05/09/17 15:37 PTH Intact 142.8 pg/mL (15-65) H 05/09/17 03:20 Urine Color Yellow (Yellow) 05/06/17 17:15 Urine Turbidity Clear (Clear) 05/06/17 17:15 Urine pH 6.0 (5.0-7.0) 05/06/17 17:15 Ur Specific [place] 1.009 (1.003-1.030) 05/06/17 17:15 Urine Protein 30 mg/dl mg/dL (Negative) 05/06/17 17:15 Urine Glucose (UA) Neg mg/dL (Negative) 05/06/17 17:15 Urine Ketones Neg mg/dL (Negative) 05/06/17 17:15 Urine Blood Mod (Negative) 05/06/17 17:15 Urine Nitrite Neg (Negative) 05/06/17 17:15 Urine Bilirubin Neg (Negative) 05/06/17 17:15 Urine Urobilinogen < 2.0 mg/dL (<2.0) 05/06/17 17:15 Ur Leukocyte Esterase Neg (Negative) 05/06/17 17:15 Urine WBC (Auto) 2.0 /HPF (0.0-6.0) 05/06/17 17:15 Urine RBC (Auto) 9.0 /HPF (0.0-6.0) 05/06/17 17:15 Urine Creatinine 86.4 mg/dL (0.1-20.0) H 05/07/17 05:00 Urine Sodium 54 mEq/L 05/07/17 05:00
[2017-05-09] MEDS ORDERED: MILK OF MAGNESIA PO PRN (19:30)
[2017-05-09] MEDS ORDERED: MEGACE PO PRN (20:30)
[2017-05-09] MEDS: CARDURA PO SCH (22:27)
[2017-05-09] MEDS: COLACE PO SCH (22:28)
[2017-05-10 07:37] LABS: Hematocrit 30.4 % (35.5-45.6); Hemoglobin 9.8 gm/dl (11.8-15.2); Mean Corpuscular HGB Conc 32 % (32-34); Mean Corpuscular Volume 74 fl (84-94); Platelet Count 176 K/mm3 (140-440); Red Blood Count 4.11 M/mm3 (3.65-5.03); Red Cell Distribution Width 15.7 % (13.2-15.2); White Blood Count 9.4 K/mm3 (4.5-11.0)
[2017-05-10 07:38] LABS: Albumin/Globulin Ratio 0.9 %; Bilirubin,Total 0.3 mg/dL (0.1-1.2); Chloride 103.4 mmol/L (98-107); Potassium 3.4 mmol/L (3.6-5.0); Total Protein 6.4 g/dL (6.3-8.2)
[2017-05-10 07:40] LABS: Mean Corpuscular Hemoglobin 24 pg (28-32)
[2017-05-10] MEDS ORDERED: K-DUR PO ONE (08:47)
--- NOTE | 2017-05-10 08:48 | Progress Note ---
Assessment and Plan - Patient Problems (1) ARF (acute renal failure) Status: Acute Qualifiers: Acute renal failure type: A Plan to address problem: Acute kidney injury secondary to Urinary retention. Renal function continue to improve. Baseline renal function is unknown. Follow with me in 1 week. (2) Urinary retention Status: Acute Plan to address problem: s/p heredia catheter. (3) Accelerated hypertension Status: Acute Plan to address problem: BP is better. (4) Leukocytosis Status: Acute Qualifiers: Leukocytosis type: unspecified Qualified Code(s): D72.829 - Elevated white blood cell count, unspecified Subjective Date of service: 05/10/17 Interval history: Patient is doing better. Objective - Vital Signs Vital signs: Vital Signs - 12hr 05/09/17 05/10/17 05/10/17 22:27 00:00 04:10 Temperature 98.0 F 98.9 F Pulse Rate 77 103 H 81 Respiratory 20 20 Rate Blood Pressure 175/80 189/88 182/81 O2 Sat by Pulse 93 97 Oximetry 05/10/17 08:00 Temperature 98.5 F Pulse Rate 90 Respiratory 16 Rate Blood Pressure 142/74 O2 Sat by Pulse 98 Oximetry - General Appearance General appearance: well-developed, well-nourished, appears stated age, other ( no distress) EENT: ATNC, PERRL, mucous membranes moist, hearing intact, vision intact Neck: supple Respiratory: Present: Clear to Ascultation Cardiology: regular, S1S2, no murmurs Gastrointestinal: normoactive bowel sounds, no tenderness Integumentary: no rash Neurologic: no focal deficit, no asterixis, alert and oriented x3 Musculoskeletal: other (1+ pedal edema) Psychiatric: mood/affect appropriate, cooperative - Lab 05/10/17 06:53 05/10/17 06:53 Most recent lab results Calcium 8.0 mg/dL (8.4-10.2) L 05/10/17 06:53 Magnesium 2.20 mg/dL (1.7-2.3) 05/09/17 03:20 Urine Creatinine 86.4 mg/dL (0.1-20.0) H 05/07/17 05:00 Urine Sodium 54 mEq/L 05/07/17 05:00
[2017-05-10] MEDS ORDERED: FLOMAX PO SCH (10:00)
[2017-05-10] MEDS ORDERED: CASODEX PO SCH (10:00)
[2017-05-10] MEDS: COLACE PO SCH (10:18)
[2017-05-10] MEDS: IMDUR PO SCH (10:18)
[2017-05-10] MEDS: HEPARIN SUB-Q SCH (10:21)
[2017-05-10] MEDS: NORVASC PO SCH (10:28)
[2017-05-10 12:45] VITALS: BP 148/76
--- NOTE | 2017-05-10 13:29 | Discharge Summary ---
Providers - Providers Date of Admission: 05/06/17 20:05 Date of discharge: 05/10/17 Attending physician: ENRRIQUE BROWN 05/07/17 14:48 Consult to Physician [CONS] Routine Consulting Provider: WADE BARAHONA Reason For Exam: bilateral hydronephrosis Place consult to:: Bobbi NELSON Notified:: . Was contact made?: Yes Time called:: 13:02 05/08/17 10:57 Consult to Physician [CONS] Routine Consulting Provider: LAUREL OLIVEROS Reason For Exam: ARF, requested by Dr. 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 Guzman, urologist, who presented with urinary retention. PSA found to be >100 and renal ultrasound showed bilateral hydronephrosis; urology was consulted and bladder decompressed by Mcmillan catheter ; he was also started on Flomax and Casodex, as well as, antibiotics for prostatitis/UTI. Also found to have acute renal failure due to obstructive uropathy that improved weight Mcmillan decompression. Antihypertensive regimen has also been adjusted for better BP control. He is discharged with Mcmillan urology follow-up. Discharge diagnoses: 1. Urinary retention due to prostate cancer 2. Prostatitis/UTI 3. Prostate cancer 4. Acute renal failure likely superimposed on chronic kidney disease 5. Hypertension Disposition: DC-01 TO HOME OR SELFCARE Time spent for discharge: 35 min Core Measure Documentation - Palliative Care Palliative Care/ Comfort Measures: Not Applicable - Core Measures Any of the following diagnoses?: none Exam - Physical Exam Narrative exam: Seen and examined: - Constitutional Vitals: Temp Pulse Resp BP Pulse Ox 98.4 F 94 H 20 148/76 98 05/10/17 12:00 05/10/17 12:00 05/10/17 12:00 05/10/17 12:00 05/10/17 08:00 General appearance: Present: no acute distress - EENT Eyes: Present: PERRL, EOM intact - Neck Neck: Present: supple, normal ROM. Absent: masses or JVD - Respiratory Respiratory effort: normal Respiratory: bilateral: CTA, negative: rhonchi, wheezing - Cardiovascular Rhythm: regular Heart Sounds: Present: S1 & S2. Absent: systolic murmur - Extremities Extremities: no ischemia - Abdominal General gastrointestinal: Present: soft, non-tender, non-distended, normal bowel sounds - Neurologic Neurologic: CNII-XII intact, no focal deficits Plan Activity: advance as tolerated, fall precautions Diet: low cholesterol, low salt Special Instructions: physical therapy, occupational therapy, home health RN, other ([facility] perinstructions) Additional Instructions: Follow up with your urologist Follow up with: PRIMARY CARE,MD [Primary Care Provider] - 3-5 Days Prescriptions: Bicalutamide [Casodex] 50 mg PO QDAY #30 tablet Bisacodyl [Dulcolax suppos] 10 mg DE QDAY PRN #30 supp.rect PRN Reason: Constipation unrelieved by MOM Docusate Sodium [Colace ORAL LIQ] 100 mg PO BID #60 oral.liqd Doxazosin [Cardura] 2 mg PO HS #60 tablet ISOSORBIDE MONOnitrate [Imdur ER] 30 mg PO QDAY #30 tablet Magnesium Hydroxide [Milk of Magnesia] 30 ml PO Q4H PRN #20 oral.liqd PRN Reason: Constipation Megestrol [Megace] 20 mg PO DAILY PRN #30 tablet PRN Reason: Rash Tamsulosin [Flomax] 0.4 mg PO QDAY #30 capsule
== END 2017-05-10 15:27 | disposition home or self-care (01) | DRG 727 ==
LOC: ED 14:55 → 3A 20:05
PROVIDERS: ADMIT Internal Medicine; ATTEND Internal Medicine
DX: N41.9 Inflammatory disease of prostate, unspecified (principal); N17.0 Acute kidney failure with tubular necrosis; N39.0 Urinary tract infection, site not specified; N13.30 Unspecified hydronephrosis; I10 Essential (primary) hypertension; D72.829 Elevated white blood cell count, unspecified; R33.9 Retention of urine, unspecified; D63.8 Anemia in other chronic diseases classified elsewhere; Z82.49 Family history of ischemic heart disease and other diseases of the circulatory system; Z85.46 Personal history of malignant neoplasm of prostate
CPT/HCPCS: 36415; 51702; 74176; 76770; 80048; 80053; 81001; 82570; 82962; 83735; 83970; 84153; 84300; 85025; 85027; 87086; J1644; J9999

== ENCOUNTER 2019-01-30 08:35 | Inpatient (IN) | payer MEDICARE ==
[2019-01-30] MEDS ORDERED: NITRO-BID 2% TP ONE ×2 (08:42→14:05)
[2019-01-30 09:03] LABS: Hematocrit 34.4 % (35.5-45.6); Hemoglobin 10.6 gm/dl (11.8-15.2); Mean Corpuscular HGB Conc 31 % (32-34); Mean Corpuscular Volume 77 fl (84-94); Platelet Count 300 K/mm3 (140-440); Red Blood Count 4.48 M/mm3 (3.65-5.03); Red Cell Distribution Width 16.6 % (13.2-15.2)
--- NOTE | 2019-01-30 09:11 | Emergency Department Report ---
ED Shortness of Breath HPI - General Chief Complaint: Dyspnea/Respdistress Stated Complaint: JULES/SWOLLEN LEGS Time Seen by Provider: 01/30/19 08:42 Source: EMS, old records reviewed Mode of arrival: Stretcher Limitations: Altered Mental Status - History of Present Illness Initial Comments: 78-year-old male with a past medical history CHF, hypertension, prostate cancer, and chronic renal insufficiency presented to the hospital with shortness of breath. Patient not feeling well for a few days. Patient is severely dyspneic and unable to provide any history of present illness. Patient denies pain and is compliant with his meds. - Related Data Home Medications Medication Instructions Recorded Confirmed Last Taken amLODIPine [Norvasc] 10 mg PO QDAY 05/06/17 05/06/17 05/06/17 Previous Rx's Medication Instructions Recorded Last Taken Type Bicalutamide [Casodex] 50 mg PO QDAY #30 tablet 05/10/17 Unknown Rx Bisacodyl [Dulcolax suppos] 10 mg TN QDAY PRN #30 supp.rect 05/10/17 Unknown Rx Docusate Sodium [Colace ORAL LIQ] 100 mg PO BID #60 oral.liqd 05/10/17 Unknown Rx Doxazosin [Cardura] 2 mg PO HS #60 tablet 05/10/17 Unknown Rx ISOSORBIDE MONOnitrate [Imdur ER] 30 mg PO QDAY #30 tablet 05/10/17 Unknown Rx Magnesium Hydroxide [Milk of 30 ml PO Q4H PRN #20 oral.liqd 05/10/17 Unknown Rx Magnesia] Megestrol [Megace] 20 mg PO DAILY PRN #30 tablet 05/10/17 Unknown Rx Tamsulosin [Flomax] 0.4 mg PO QDAY #30 capsule 05/10/17 Unknown Rx Allergies Allergy/AdvReac Type Severity Reaction Status Date / Time No Known Allergies Allergy Unverified 05/06/17 15:50 ED Review of Systems ROS: Stated complaint: JULES/SWOLLEN LEGS Other details as noted in HPI Comment: Unobtainable due to pts medical conditions ED Past Medical Hx - Past Medical History Previous Medical History?: Yes Hx Hypertension: Yes Hx Congestive Heart Failure: Yes Hx Renal Disease: Yes (chronic renal insufficiency) Hx of Cancer: Yes (history of prostate cancer) Hx Arthritis: Yes (rt leg) Additional medical history: prostate enlarged - Surgical History Additional Surgical History: I-[id number] implant for prostate cancer, Umbilical hernia repair - Social History Smoking Status: Unknown if ever smoked - Medications Home Medications: Home Medications Medication Instructions Recorded Confirmed Last Taken Type amLODIPine [Norvasc] 10 mg PO QDAY 05/06/17 05/06/17 05/06/17 History Bicalutamide [Casodex] 50 mg PO QDAY #30 tablet 05/10/17 Unknown Rx Bisacodyl [Dulcolax suppos] 10 mg TN QDAY PRN #30 supp.rect 05/10/17 Unknown Rx Docusate Sodium [Colace ORAL LIQ] 100 mg PO BID #60 oral.liqd 05/10/17 Unknown Rx Doxazosin [Cardura] 2 mg PO HS #60 tablet 05/10/17 Unknown Rx ISOSORBIDE MONOnitrate [Imdur ER] 30 mg PO QDAY #30 tablet 05/10/17 Unknown Rx Magnesium Hydroxide [Milk of 30 ml PO Q4H PRN #20 oral.liqd 05/10/17 Unknown Rx Magnesia] Megestrol [Megace] 20 mg PO DAILY PRN #30 tablet 05/10/17 Unknown Rx Tamsulosin [Flomax] 0.4 mg PO QDAY #30 capsule 05/10/17 Unknown Rx ED Physical Exam - General Limitations: Altered Mental Status - Other Other exam information: General: No limitations, patient is alert in no acute distress Head exam: Atraumatic, normocephalic Eyes exam: Normal appearance ENT: Moist mucous membrane, normal oropharynx Neck exam: Normal inspection, full range of motion, no meningismus nontender Respiratory exam: Tachypnea, rales, significant respiratory distress Cardiovascular: Tachycardic regular rhythm Abdomen: Soft, umbilical hernia nontender, and nontender, with normal bowel sounds, no rebound, or guarding Extremity: Bilateral pitting 3+ lower extremity edema Back: Normal Inspection, full range of motion, no tenderness Neurologic: Alert, cranial nerves intact, no motor or sensory deficit Psychiatric: normal affect, normal mood Skin: Warm, dry, intact ED Course Vital Signs 01/30/19 01/30/19 01/30/19 08:45 08:56 09:02 Pulse Rate 139 H Respiratory Rate Blood Pressure 199/136 150/95 Blood Pressure 150/95 [Left] O2 Sat by Pulse Oximetry 05/11/19 09:50 Pulse Rate 87 Respiratory 22 Rate Blood Pressure 171/98 Blood Pressure [Left] O2 Sat by Pulse 98 Oximetry ED Medical Decision Making - Lab Data Result diagrams: 01/30/19 08:57 01/30/19 08:57 Lab Results 01/30/19 01/30/19 01/30/19 Range/Units 08:57 08:57 08:57 WBC 23.5 H (4.5-11.0) K/mm3 RBC 4.48 (3.65-5.03) M/mm3 Hgb 10.6 L (11.8-15.2) gm/dl Hct 34.4 L (35.5-45.6) % MCV 77 L (84-94) fl MCH 24 L (28-32) pg MCHC 31 L (32-34) % RDW 16.6 H (13.2-15.2) % Plt Count 300 (140-440) K/mm3 Lymph # Recreational Therapist PT 15.4 H (12.2-14.9) Sec. INR 1.15 H (0.87-1.13) APTT 29.9 (24.2-36.6) Sec. Sodium 141 (137-145) mmol/L Potassium 3.8 (3.6-5.0) mmol/L Chloride 103.1 (98-107) mmol/L Carbon Dioxide 19 L (22-30) mmol/L Anion Gap 23 mmol/L BUN 38 H (9-20) mg/dL Creatinine 2.5 H (0.8-1.5) mg/dL Estimated GFR 25 ml/min BUN/Creatinine Ratio 15 % Glucose 203 H (75-100) mg/dL Calcium 8.2 L (8.4-10.2) mg/dL Total Bilirubin 0.50 (0.1-1.2) mg/dL AST 220 H (5-40) units/L ALT 118 H (7-56) units/L Alkaline Phosphatase 285 H (35-129) units/L Troponin T 0.044 H (0.00-0.029) ng/mL NT-Pro-B Natriuret Pep 29576 H (0-900) pg/mL Total Protein 7.8 (6.3-8.2) g/dL Albumin 3.2 L (3.9-5) g/dL Albumin/Globulin Ratio 0.7 % Triglycerides 89 (2-149) mg/dL Cholesterol 128 (50-199) mg/dL LDL Cholesterol Direct 92 (50-130) mg/dL HDL Cholesterol 35 L (40-59) mg/dL Cholesterol/HDL Ratio 3.65 % - EKG Data -: EKG Interpreted by Me EKG shows normal: sinus rhythm, axis (qrs -14), QRS complexes (qrsd 109), ST-T waves (lvh with repol, no stemi) Rate: normal (84) - EKG Data When compared to previous EKG there are: previous EKG unavailable - Radiology Data Radiology results: report reviewed PROCEDURE: XR CHEST 1V AP TECHNIQUE: Single frontal view of the chest HISTORY: sob COMPARISONS: None. FINDINGS: There is cardiomegaly. There are patchy bilateral perihilar opacities, left greater than right. No pleural effusion or pneumothorax. No acute bony or soft tissue abnormality. IMPRESSION: Cardiomegaly and patchy bilateral perihilar opacities, left greater than right. Findings may represent congestive heart failure with mild pulmonary edema. - Medical Decision Making elevated bp improved after bipap therefore nitro paste cancelled asa ordered for trop elevation but he secondary to chronic renal sufficiency. Repeat troponin pending Creatinine similar to previous creatinine on record from 2017 (actually somewhat improved) Patient LFT elevation which is new since 2017 Given the elevated white count altered and covered with Rocephin and azithromycin. Urine collection pending at disposition lasix iv given ABG also ordered Hospitalist informed for admission. Dr Sorenson requests admission to Dr Andrews - Differential Diagnosis CHF, MN, pulmonary embolism, renal failure, liver, hypertensive emergency Critical Care Time: Yes Critical care time in (mins) excluding proc time.: 35 Critical care attestation.: If time is entered above; I have spent that time in minutes in the direct care of this critically ill patient, excluding procedure time. ED Disposition Clinical Impression: Umbilical hernia, CHF exacerbation, Leukocytosis, Chronic renal insufficiency, Elevated troponin, Elevated LFTs, Respiratory distress Disposition: OP ADMIT IP TO THIS HOSP Is pt being admited?: Yes Condition: Stable Time of Disposition: 10:14 (Dr. andrews/hospitalist)
[2019-01-30 09:15] LABS: INR 1.15 (0.87-1.13); Partial Thromboplastin Time 29.9 Sec. (24.2-36.6)
[2019-01-30 09:29] LABS: Albumin 3.2 g/dL (3.9-5); Calcium 8.2 mg/dL (8.4-10.2)
[2019-01-30] MEDS ORDERED: ASPIRIN PO ONE (09:29)
--- NOTE | 2019-01-30 09:47 | XRay Report ---
PROCEDURE: XR CHEST 1V AP TECHNIQUE: Single frontal view of the chest HISTORY: sob COMPARISONS: None. FINDINGS: There is cardiomegaly. There are patchy bilateral perihilar opacities, left greater than right. No pleural effusion or pneum othorax. No acute bony or soft tissue abnormality. IMPRESSION: Cardiomegaly and patchy bilateral perihilar opacities, left greater than right. Findings may represen t congestive heart failure with mild pulmonary edema. This document is electronically signed by Elsie Knox MD., Jan 30 2019 09:45:18 AM ET
[2019-01-30 10:02] LABS: Chol/HDL Ratio 3.65 %
[2019-01-30] MEDS ORDERED: LASIX IV ONE (10:05)
[2019-01-30] MEDS ORDERED: ROCEPHIN/NS 1 GM/50 ML 1 GM/50 ML BAG IV ONE (10:05)
[2019-01-30] MEDS ORDERED: ZITHROMAX 500 MG in NACL 0.9% 250ML 250 ML IV ONE (10:05)
[2019-01-30 11:03] LABS: Total Cells Counted 100
[2019-01-30 11:05] LABS: Giant Platelets Few; Hypochromasia Few; Platelet Estimate Consistent w Auto
[2019-01-30] MEDS ORDERED: PROVENTIL IH PRN (11:33)
[2019-01-30] MEDS ORDERED: MORPHINE IV PRN (11:39)
[2019-01-30] MEDS ORDERED: NORCO 5/325 PO PRN (11:39)
[2019-01-30] MEDS ORDERED: ZOFRAN IV PRN (11:39)
[2019-01-30] MEDS ORDERED: TYLENOL PO PRN (11:39)
[2019-01-30] MEDS ORDERED: MIRALAX 3350 PO PRN (11:39)
--- NOTE | 2019-01-30 11:46 | History and Physical Report ---
History of Present Illness Date of examination: 01/30/19 Date of admission: 01/30/19 11:15 Chief complaint: SOB History of present illness: Patient is a 78 yo man with a history of hypertension, prostate cancer w/ bilateral hydronephrosis followed by Urology and CKD 4 with last Cr 3.0 in 2017 (he was in ARF at the time) who presents to [facility] ED with progressive worse, constant severe SOB for the last 2-3 days associated with leg swelling without aggravating or relieving factors, associated with nonproductive cough but no fevers or chills. History is very limited because he is on BIPAP and unable to complete sentences. He doesn't have O2 at home. He denies chest pains. PMH: as hpi PSH: prostate seeds and implant SH: denies sob/etoh/illicit drugs FH: denies ROS: Constitutional: denies: fever +malaise ENT: denies: throat or neck pain Respiratory: + cough, shortness of breath Cardiovascular: denies: chest pain Endocrine: denies unexplained weight loss or gain, he feels warm Gastrointestinal: denies: abdominal pain, nausea Genitourinary: denies: dysuria Rectal: denies no incontinence, no bleeding, no itching, no discharge Musculoskeletal: denies swelling, myaglia, muscle weakness Skin: denies: rash Neurological: denies: headache Hematological/Lymphatic: denies: easy bleeding or easy bruising Allergic/Immunologic: no urticaria, no allergic rhinitis, no anaphylaxis Psych: denies sadness or hopelessness, SI/HI Medications and Allergies Allergies Allergy/AdvReac Type Severity Reaction Status Date / Time No Known Allergies Allergy Unverified 05/06/17 15:50 Home Medications Medication Instructions Recorded Confirmed Last Taken Type amLODIPine [Norvasc] 10 mg PO QDAY 05/06/17 01/30/19 05/06/17 History Bicalutamide [Casodex] 50 mg PO QDAY #30 tablet 05/10/17 01/30/19 Unknown Rx Bisacodyl [Dulcolax suppos] 10 mg [place] QDAY PRN #30 supp.rect 05/10/17 01/30/19 Unknown Rx Docusate Sodium [Colace ORAL LIQ] 100 mg PO BID #60 oral.liqd 05/10/17 01/30/19 Unknown Rx Doxazosin [Cardura] 2 mg PO HS #60 tablet 05/10/17 01/30/19 Unknown Rx ISOSORBIDE MONOnitrate [Imdur ER] 30 mg PO QDAY #30 tablet 05/10/17 01/30/19 Unknown Rx Magnesium Hydroxide [Milk of 30 ml PO Q4H PRN #20 oral.liqd 05/10/17 01/30/19 Unknown Rx Magnesia] Megestrol [Megace] 20 mg PO DAILY PRN #30 tablet 05/10/17 01/30/19 Unknown Rx Tamsulosin [Flomax] 0.4 mg PO QDAY #30 capsule 05/10/17 01/30/19 Unknown Rx Active Meds: Active Medications Albuterol (Proventil) 2.5 mg IH Q4HRT PRN PRN Reason: Shortness Of Breath Furosemide (Lasix) 40 mg IV 0600,1800 [facility] Ceftriaxone Sodium (Rocephin/Ns 2 Gm/100 Ml) 2 gm in 100 mls @ 200 mls/hr IV Q24HR [facility]; Protocol Azithromycin 500 mg/ Sodium (Chloride) 250 mls @ 250 mls/hr IV Q24HR [facility] Exam - Physical Exam Narrative exam: Gen: thin frail, ill appearing, moderate increase accessory muscles, barrel chest, Awake, Alert, Orientated HEENT: NCAT, EOMI, PERRL, OP Clear Neck: supple, no adenopathy, no thyromegaly, no JVD CVS/Heart: Regular tachycardia, normal S1S2, pulses present bilaterally Chest/Lungs: bibasilar crackles, diminished bs bilateral, coarse bs bilateral but worse on the left, Symmetrical chest expansion, good air entry bilaterally GI/Abdomen: soft, NTND, protuding soft umbilicus, good bowel sounds, no guarding or rebound /Bladder: no suprapubic tenderness, no CVA or paraspinal tenderness Extermity/Skin: lymphedema with chronic venous stasis, bilateral leg edema MSK: FROM x 4 Neuro: CN 2-12 grossly intact, no new focal deficits Psych: calm - Constitutional Vitals: Temp Pulse Resp BP Pulse Ox 87 22 171/98 98 01/30/19 09:50 01/30/19 09:50 01/30/19 09:50 01/30/19 09:50 Results - Labs CBC & Chem 7: 01/30/19 08:57 01/30/19 08:57 Labs: Abnormal lab results 01/30/19 01/30/19 01/30/19 Range/Units 08:57 08:57 08:57 WBC 23.5 H (4.5-11.0) K/mm3 Hgb 10.6 L (11.8-15.2) gm/dl Hct 34.4 L (35.5-45.6) % MCV 77 L (84-94) fl MCH 24 L (28-32) pg MCHC 31 L (32-34) % RDW 16.6 H (13.2-15.2) % Seg Neuts % (Manual) 79.0 H (40.0-70.0) % Seg Neutrophils # Man 18.6 H (1.8-7.7) K/mm3 Basophils # (Manual) 0.2 H (0.0-0.1) K/mm3 PT 15.4 H (12.2-14.9) Sec. INR 1.15 H (0.87-1.13) POC ABG pH (7.35-7.45) POC ABG pCO2 (35-45) POC ABG pO2 (80-105) VBG pH (7.320-7.420) Carbon Dioxide 19 L (22-30) mmol/L BUN 38 H (9-20) mg/dL Creatinine 2.5 H (0.8-1.5) mg/dL Glucose 203 H (75-100) mg/dL Lactic Acid (0.7-2.0) mmol/L Calcium 8.2 L (8.4-10.2) mg/dL AST 220 H (5-40) units/L ALT 118 H (7-56) units/L Alkaline Phosphatase 285 H (35-129) units/L Troponin T 0.044 H (0.00-0.029) ng/mL NT-Pro-B Natriuret Pep 11844 H (0-900) pg/mL Albumin 3.2 L (3.9-5) g/dL HDL Cholesterol 35 L (40-59) mg/dL 01/30/19 01/30/19 01/30/19 Range/Units 10:23 10:23 10:38 WBC (4.5-11.0) K/mm3 Hgb (11.8-15.2) gm/dl Hct (35.5-45.6) % MCV (84-94) fl MCH (28-32) pg MCHC (32-34) % RDW (13.2-15.2) % Seg Neuts % (Manual) (40.0-70.0) % Seg Neutrophils # Man (1.8-7.7) K/mm3 Basophils # (Manual) (0.0-0.1) K/mm3 PT (12.2-14.9) Sec. INR (0.87-1.13) POC ABG pH (7.35-7.45) POC ABG pCO2 (35-45) POC ABG pO2 (80-105) VBG pH 7.240 L (7.320-7.420) Carbon Dioxide (22-30) mmol/L BUN (9-20) mg/dL Creatinine (0.8-1.5) mg/dL Glucose (75-100) mg/dL Lactic Acid 3.00 H* (0.7-2.0) mmol/L Calcium (8.4-10.2) mg/dL AST (5-40) units/L ALT (7-56) units/L Alkaline Phosphatase (35-129) units/L Troponin T 0.084 H D (0.00-0.029) ng/mL NT-Pro-B Natriuret Pep (0-900) pg/mL Albumin (3.9-5) g/dL HDL Cholesterol (40-59) mg/dL 01/30/19 Range/Units 11:31 WBC (4.5-11.0) K/mm3 Hgb (11.8-15.2) gm/dl Hct (35.5-45.6) % MCV (84-94) fl MCH (28-32) pg MCHC (32-34) % RDW (13.2-15.2) % Seg Neuts % (Manual) (40.0-70.0) % Seg Neutrophils # Man (1.8-7.7) K/mm3 Basophils # (Manual) (0.0-0.1) K/mm3 PT (12.2-14.9) Sec. INR (0.87-1.13) POC ABG pH 7.340 L (7.35-7.45) POC ABG pCO2 46.6 H (35-45) POC ABG pO2 114 H (80-105) VBG pH (7.320-7.420) Carbon Dioxide (22-30) mmol/L BUN (9-20) mg/dL Creatinine (0.8-1.5) mg/dL Glucose (75-100) mg/dL Lactic Acid (0.7-2.0) mmol/L Calcium (8.4-10.2) mg/dL AST (5-40) units/L ALT (7-56) units/L Alkaline Phosphatase (35-129) units/L Troponin T (0.00-0.029) ng/mL NT-Pro-B Natriuret Pep (0-900) pg/mL Albumin (3.9-5) g/dL HDL Cholesterol (40-59) mg/dL Assessment and Plan Patient is a 78 yo man with a history of hypertension, prostate cancer w/ bilateral hydronephrosis followed by Dr. Guzman, CHF and CKD 4 with last Cr 3 .0 in 2017 (he was in ARF at the time) who presents to [facility] ED with progressive worse, constant severe SOB for the last 2-3 days associated with leg swelling without aggravating or relieving factors, associated with nonproductive cough but no fevers or chills. History is very limited because he is on BIPAP and unable to complete sentences. He doesn't have O2 at home. He denies chest pains. * WBC 23.5, hemoglobin 10.6 w/ MCV 77, nl plt, CO2 19, bun 38, Creatinine 2.5, BG 203, AST 220, ALT 118, nl bilirubin, Alk phos 285, troponin 0.044, proBNP 18,064, * pCXR Impression: Cardiomegaly and patchy bilateral perihilar opacities, left greater than right, findings may represent CHF with pulmonary edema. Acute on chronic suspected systolic heart failure: treat with iv lasix bid, consult Cardiology, order ECHO, admit Acute hypoxic respiratory failure: consult Pulm, continue BIPAP/O2, get ABG Suspected Sepsis with bilateral pneumonia, WBC 23.5: get blood cultures, treat with ABX and nebs ARF/CKD stage 4 due to tubular stasis, screen for urinary retention and treat the heart failure, get U/S, consulted Nephrology Transaminitis: get U/s, get hepatitis panel Acute on chronic AOCD: monitor h/h closely H/o prostate cancer and urinary retention/bilateral hydronephrosis: get U/S kidneys Elevated troponin: repeat, consulted Cardiology==>increasing troponin, start iv heparin drip DVT ppx sq heparin full code home med recon not updated Disposition: Admit CCT 32 minutes
[2019-01-30 12:14] LABS: Bacteria,Urine 4+ /HPF (Negative); Bilirubin,Urine NEG (Negative); Blood,Urine MOD (Negative); Color,Urine Yellow (Yellow); Mucus,Urine FEW /HPF; Urobilinogen,Urine < 2.0 mg/dL (<2.0)
[2019-01-30 12:16] LABS: WBC,Urine > 182.0 /HPF (0.0-6.0)
--- NOTE | 2019-01-30 14:10 | Consultation ---
History of Present Illness Consult date: 01/30/19 Requesting physician: COLTON WYLIE Reason for consult: dyspnea, hypoxemia History of present illness: 78 y/o male with acute respiratory failure secondary to hypertensive emergency with pulmonary edema. Patient with known Chronic Kidney Disease, no on HD. Per patient he has had Fluid in his lungs before, recently. Family at bedside. Currently on BIPAP. ABG is adequate but BP remains elevated. Past History Past Medical History: hypertension, other (CKD) Past Surgical History: Other (unable to obtain) Social history: other (unable to obtain) Medications and Allergies Allergies Allergy/AdvReac Type Severity Reaction Status Date / Time No Known Allergies Allergy Unverified 05/06/17 15:50 Home Medications Medication Instructions Recorded Confirmed Last Taken Type amLODIPine [Norvasc] 10 mg PO QDAY 05/06/17 05/06/17 05/06/17 History Bicalutamide [Casodex] 50 mg PO QDAY #30 tablet 05/10/17 Unknown Rx Bisacodyl [Dulcolax suppos] 10 mg [place] QDAY PRN #30 supp.rect 05/10/17 Unknown Rx Docusate Sodium [Colace ORAL LIQ] 100 mg PO BID #60 oral.liqd 05/10/17 Unknown Rx Doxazosin [Cardura] 2 mg PO HS #60 tablet 05/10/17 Unknown Rx ISOSORBIDE MONOnitrate [Imdur ER] 30 mg PO QDAY #30 tablet 05/10/17 Unknown Rx Magnesium Hydroxide [Milk of 30 ml PO Q4H PRN #20 oral.liqd 05/10/17 Unknown Rx Magnesia] Megestrol [Megace] 20 mg PO DAILY PRN #30 tablet 05/10/17 Unknown Rx Tamsulosin [Flomax] 0.4 mg PO QDAY #30 capsule 05/10/17 Unknown Rx Active Meds: Active Medications Acetaminophen (Tylenol) 650 mg PO Q6H PRN PRN Reason: Non Cardiac Pain or Temp>100.5 Acetaminophen/Hydrocodone Bitart ([place] 5/325) 1 each PO Q4H PRN PRN Reason: Pain, Moderate (4-6) Albuterol (Proventil) 2.5 mg IH Q4HRT PRN PRN Reason: Shortness Of Breath Furosemide (Lasix) 40 mg IV 0600,1800 [facility] Heparin Sodium (Porcine) (Heparin) 5,000 unit SUB-Q Q12HR [facility] Ceftriaxone Sodium (Rocephin/Ns 2 Gm/100 Ml) 2 gm in 100 mls @ 200 mls/hr IV Q24HR [facility]; Protocol Azithromycin 500 mg/ Sodium (Chloride) 250 mls @ 250 mls/hr IV Q24HR [facility] Morphine Sulfate (Morphine) 2 mg IV Q4H PRN PRN Reason: Pain , Severe (7-10) Ondansetron HCl (Zofran) 4 mg IV Q4H PRN PRN Reason: Nausea And Vomiting Pantoprazole Sodium (Protonix) 40 mg PO QDAY [facility] Polyethylene Glycol (Miralax 3350) 17 gm PO QDAY PRN PRN Reason: Constipation Physical Examination Vital signs: Vital Signs Pulse Ox 66 L 01/30/19 08:26 General appearance: alert, appears uncomfortable Eyes: non-icteric ENT: other (full face mask bipap is present) Neck: supple Effort: mildly labored Ascultation: Bilateral: rales Cardiovascular: other (tachycardic, feels sinus) Gastrointestinal: normoactive bowel sounds, soft Results - Laboratory Findings CBC and BMP: 01/30/19 08:57 01/30/19 08:57 ABG POC ABG pH 7.340 (7.35-7.45) L 01/30/19 11:31 POC ABG pCO2 46.6 (35-45) H 01/30/19 11:31 POC ABG pO2 114 (80-105) H 01/30/19 11:31 POC ABG HCO3 25.1 (22-26 mml/L) 01/30/19 11:31 POC ABG Total CO2 27 (23-27mmol/L) 01/30/19 11:31 POC ABG O2 Sat 98 01/30/19 11:31 PT/INR, D-dimer PT 15.4 Sec. (12.2-14.9) H 01/30/19 08:57 INR 1.15 (0.87-1.13) H 01/30/19 08:57 Abnormal lab findings: Abnormal Labs 01/30/19 01/30/19 01/30/19 08:57 08:57 08:57 WBC 23.5 H Hgb 10.6 L Hct 34.4 L MCV 77 L MCH 24 L MCHC 31 L RDW 16.6 H Seg Neuts % (Manual) 79.0 H Seg Neutrophils # Man 18.6 H Basophils # (Manual) 0.2 H PT 15.4 H INR 1.15 H POC ABG pH POC ABG pCO2 POC ABG pO2 VBG pH Carbon Dioxide 19 L BUN 38 H Creatinine 2.5 H Glucose 203 H Lactic Acid Calcium 8.2 L AST 220 H ALT 118 H Alkaline Phosphatase 285 H Troponin T 0.044 H NT-Pro-B Natriuret Pep 50723 H Albumin 3.2 L HDL Cholesterol 35 L Urine WBC (Auto) 01/30/19 01/30/19 01/30/19 10:23 10:23 10:38 WBC Hgb Hct MCV MCH MCHC RDW Seg Neuts % (Manual) Seg Neutrophils # Man Basophils # (Manual) PT INR POC ABG pH POC ABG pCO2 POC ABG pO2 VBG pH 7.240 L Carbon Dioxide BUN Creatinine Glucose Lactic Acid 3.00 H* Calcium AST ALT Alkaline Phosphatase Troponin T 0.084 H D NT-Pro-B Natriuret Pep Albumin HDL Cholesterol Urine WBC (Auto) 01/30/19 01/30/19 11:28 11:31 WBC Hgb Hct MCV MCH MCHC RDW Seg Neuts % (Manual) Seg Neutrophils # Man Basophils # (Manual) PT INR POC ABG pH 7.340 L POC ABG pCO2 46.6 H POC ABG pO2 114 H VBG pH Carbon Dioxide BUN Creatinine Glucose Lactic Acid Calcium AST ALT Alkaline Phosphatase Troponin T NT-Pro-B Natriuret Pep Albumin HDL Cholesterol Urine WBC (Auto) > 182.0 H - Diagnostic Findings Chest x-ray: image reviewed (likely pulmonary edema) Assessment and Plan 78 y/o male with acute respiratory failure secondary to pulmonary edema from hypertensive Emergency 1. Continue Bipap 2. Agree with BID lasix therapy. Needs strict I/O 3. Néstor paste 4. Consider PRN morphine to help with dyspnea 5. BP control Will continue to follow along with you. Thank you for this consult.
--- NOTE | 2019-01-30 16:11 | Consultation ---
History of Present Illness - Reason for Consult Consult date: 01/30/19 acute renal failure - History of Present Illness The patient is a 78 YO male with history significant for Hypertension, Prostate cancer with h/o bilateral hydronephrosis and CKD 4 who presented to [facility] ED with worsening sob for the past 2-3 days. Associated symptoms include orthopnea, bilateral leg swelling and nonproductive cough. Patient denies any cp, fever, chills, hemoptysis, dysuria, hematuria, abd pain, dizziness or syncope. History is somewhat limited because he was on BIPAP. Per daughter he walks with a cane. Labs significant for creatinine 2.5, bicarb 19, leukocytosis, elevated BNP and Transaminases. CXR showed pulmonary edema. Patient was admitted with CHF exacerbation. Nephrology was consulted for further evaluation. Past History Past Medical History: anemia, heart failure, hypertension, renal failure, other (Prostate cancer) Past Surgical History: Other (unable to obtain) Social history: other (unable to obtain) Medications and Allergies Allergies Allergy/AdvReac Type Severity Reaction Status Date / Time No Known Allergies Allergy Unverified 05/06/17 15:50 Home Medications Medication Instructions Recorded Confirmed Last Taken Type amLODIPine [Norvasc] 10 mg PO QDAY 05/06/17 01/30/19 05/06/17 History Bicalutamide [Casodex] 50 mg PO QDAY #30 tablet 05/10/17 01/30/19 Unknown Rx Bisacodyl [Dulcolax suppos] 10 mg [place] QDAY PRN #30 supp.rect 05/10/17 01/30/19 Unknown Rx Docusate Sodium [Colace ORAL LIQ] 100 mg PO BID #60 oral.liqd 05/10/17 01/30/19 Unknown Rx Doxazosin [Cardura] 2 mg PO HS #60 tablet 05/10/17 01/30/19 Unknown Rx ISOSORBIDE MONOnitrate [Imdur ER] 30 mg PO QDAY #30 tablet 05/10/17 01/30/19 Unknown Rx Magnesium Hydroxide [Milk of 30 ml PO Q4H PRN #20 oral.liqd 05/10/17 01/30/19 Unknown Rx Magnesia] Megestrol [Megace] 20 mg PO DAILY PRN #30 tablet 08/19/17 05/11/19 Unknown Rx Tamsulosin [Flomax] 0.4 mg PO QDAY #30 capsule 05/10/17 01/30/19 Unknown Rx Active Meds: Active Medications Acetaminophen (Tylenol) 650 mg PO Q6H PRN PRN Reason: Non Cardiac Pain or Temp>100.5 Acetaminophen/Hydrocodone Bitart ([place] 5/325) 1 each PO Q4H PRN PRN Reason: Pain, Moderate (4-6) Albuterol (Proventil) 2.5 mg IH Q4HRT PRN PRN Reason: Shortness Of Breath Furosemide (Lasix) 40 mg IV 0600,1800 [facility] Heparin Sodium (Porcine) (Heparin) 5,000 unit SUB-Q Q12HR [facility] Ceftriaxone Sodium (Rocephin/Ns 2 Gm/100 Ml) 2 gm in 100 mls @ 200 mls/hr IV Q24HR [facility]; Protocol Azithromycin 500 mg/ Sodium (Chloride) 250 mls @ 250 mls/hr IV Q24HR [facility] Morphine Sulfate (Morphine) 2 mg IV Q4H PRN PRN Reason: Pain , Severe (7-10) Ondansetron HCl (Zofran) 4 mg IV Q4H PRN PRN Reason: Nausea And Vomiting Pantoprazole Sodium (Protonix) 40 mg PO QDAY [facility] Polyethylene Glycol (Miralax 3350) 17 gm PO QDAY PRN PRN Reason: Constipation Review of Systems ROS unobtainable: due to mental status (Please see HPI.) Exam - Vital Signs Vital signs: Vital Signs Pulse Ox 66 L 01/30/19 08:26 - General Appearance General appearance: well-developed, appears stated age, other (appears emaciated, on BIPAP) EENT: ATNC, PERRL, hearing intact Neck: Present: neck supple, trachea midline, JVD/HJR Respiratory: Rales Heart: regular, S1S2, no murmurs Gastrointestinal: Present: normoactive bowel sounds. Absent: tenderness, distended Integumentary: warm and dry, chronic venous stasis Neurologic: no focal deficit, no asterixis, alert and oriented x3 Musculoskeletal: Present: other (2+ edema of both LEs noted) Results - Lab Results 01/30/19 08:57 01/30/19 08:57 Most recent lab results Calcium 8.2 mg/dL (8.4-10.2) L 01/30/19 08:57 - Image Kidney/bladder ultrasound: pending Assessment and Plan 1. Acute kidney injury: JOSELITO superimposed on CKD stage 4 in the setting of CHF exacerbation. Suspect Cardio-renal syndrome. Urine studies and Renal US pending. Monitor renal function. Renal prognosis is guarded. Avoid nephrotoxic agents. Meds dosage based on GFR. 2. FEN: Volume overload, on IV Lasix. Due to significant volume overload and pulmonary edema patient needs Isolated UF to remove fluid / volume. Patient declined and understood (verbalizes) risks. Metabolic acidosis, monitor. 3. CHF exacerbation. 4. Respiratory failure: Followed by Pulmonary. 5. Hypertensive urgency: Home meds resumed. Lasix increased. 6. H/o prostate cancer with obstruction: Bladder scan 195 ml. Monitor. 7. UTI: IV Abx. 8. Anemia: D/w his daughter at the bedside.
[2019-01-30] MEDS ORDERED: MILK OF MAGNESIA PO PRN (17:18)
[2019-01-30] MEDS ORDERED: MEGACE PO PRN (17:18)
[2019-01-30] MEDS: NORVASC PO SCH (17:52)
[2019-01-30] MEDS: IMDUR PO SCH (17:52)
[2019-01-30] MEDS: LASIX IV SCH (17:53)
[2019-01-30] MEDS ORDERED: LASIX IV SCH (18:00)
[2019-01-30] MEDS: HEPARIN/ 0.45% NACL-25,000 UNIT/500 ML 25,000 UNIT/500 ML BAG IV SCH (18:15)
[2019-01-30] MEDS: ZAROXOLYN PO SCH (18:22)
[2019-01-30 18:41] LABS: Hematocrit 34.3 % (35.5-45.6)
[2019-01-30 18:44] LABS: INR 1.15 (0.87-1.13)
[2019-01-30 18:45] LABS: Partial Thromboplastin Time 32.3 Sec. (24.2-36.6)
[2019-01-30] MEDS: CARDURA PO SCH (22:39)
[2019-01-30] MEDS: COLACE PO SCH (22:42)
[2019-01-31] MEDS: LASIX IV SCH ×2 (05:28→17:37)
[2019-01-31 05:58] LABS: Creatinine,Urine 45.1 mg/dL (0.1-20.0)
--- NOTE | 2019-01-31 08:52 | Ultrasound Report ---
PROCEDURE: US ABDOMEN COMPLETE TECHNIQUE: Abdominal ultrasound performed. HISTORY: ARF, transaminitis COMPARISON: None FINDINGS: No focal liver lesions are seen. There is no intra- or extrahepatic biliary dilatation. Proximal CBD is 3 mm. The gallbladder is distended. While there is no cholelithiasis or wall thickening seen, there may be a tiny amount of pericholecystic fluid. The pancreas is mostly obscured by bowel gas. There is no splenomegaly. Proximal aorta is normal caliber. Distal aorta is obscured by bowel gas. The visualized inferior vena cava is patent. There is marked right hydronephrosis. The left kidney is not as well visualized. There is likely at l east mild left hydronephrosis. There is a calculus in the lower pole of left kidney which measures at least 10 mm. IMPRESSION: Distended gallbladder. There is no cholelithiasis or wall thickening seen but there is possibly trace pericholecystic fluid. Evaluation limited due to patient's inability to cooperate for left lateral d ecubitus imaging. The presence of pericholecystic fluid raises concern for gallbladder inflammation. Correlate clinically. Marked right hydronephrosis. Limited visualization of the left kidney but there is at least mild left hydronephrosis as well as a calculus in the left lower pole. This document is electronically signed by Dacia Doe MD., Jan 31 2019 08:50:12 AM ET
[2019-01-31] MEDS: ZITHROMAX 500 MG in NACL 0.9% 250ML 250 ML IV SCH ×3 (09:27→20:47)
[2019-01-31] MEDS: ROCEPHIN/NS 2 GM/100 ML 2 GM/100 ML BAG IV SCH ×3 (09:27→22:21)
[2019-01-31] MEDS: IMDUR PO SCH (09:28)
[2019-01-31] MEDS: FLOMAX PO SCH (09:28)
[2019-01-31] MEDS: ZAROXOLYN PO SCH (09:28)
[2019-01-31] MEDS: COLACE PO SCH ×2 (09:28→23:15)
[2019-01-31] MEDS: NORVASC PO SCH (09:28)
[2019-01-31] MEDS: PROTONIX PO SCH (09:28)
[2019-01-31] MEDS ORDERED: CASODEX PO SCH (10:00)
--- NOTE | 2019-01-31 10:49 | Progress Note ---
Assessment and Plan 1. Acute kidney injury: JOSELITO superimposed on CKD stage 4 in the setting of CHF exacerbation. Suspect Cardio-renal syndrome. Renal US results noted. Monitor renal function. Renal prognosis is guarded. Avoid nephrotoxic agents. Meds dosage based on GFR. 2. FEN: Volume overload, inadequate diuresis inspite of high dose IV Lasix and Metolazone. Patient still refusing Isolated UF / hemodialysis. Metabolic acidosis, monitor. 3. CHF exacerbation. 4. Respiratory failure: Followed by Pulmonary. Was on BIPAP. 5. Hypertensive urgency: Home meds resumed. BP is better. 6. H/o prostate cancer with obstruction: Patient initially refused, agreed to have Mcmillan inserted. Urology consulted. Monitor. 7. UTI: IV Abx. 8. Anemia. 9. Medical non-compliance: Compliance encouraged. Patient has been refusing msot of the treatments including blood draw. D/w his daughter at the bedside. Subjective Date of service: 01/31/19 Interval history: Patient was seen and examined at the bedside. Objective - Vital Signs Vital signs: Vital Signs - 12hr 01/30/19 01/31/19 01/31/19 23:32 00:37 04:08 Temperature 98.0 F 98.0 F Pulse Rate 96 H 52 L Respiratory 18 20 18 Rate Blood Pressure 131/75 140/72 O2 Sat by Pulse 95 96 Oximetry 01/31/19 01/31/19 08:54 10:22 Temperature 97.6 F Pulse Rate 86 107 H Respiratory 14 18 Rate Blood Pressure 132/65 O2 Sat by Pulse 96 97 Oximetry - General Appearance General appearance: well-developed, appears stated age, other (tachypnea noted, able to speak, on NC O2) EENT: ATNC, PERRL, hearing intact, vision intact Neck: JVD, supple Respiratory: Present: Rales Cardiology: S1S2, no murmurs Gastrointestinal: normoactive bowel sounds Integumentary: no rash Neurologic: no focal deficit, no asterixis, alert and oriented x3 Musculoskeletal: other (2+ edema of both LEs noted) - Lab 01/31/19 13:02 01/31/19 13:02 Most recent lab results Calcium 8.2 mg/dL (8.4-10.2) L 01/30/19 08:57 45.1 mg/dL (0.1-20.0) H 01/30/19 Unknown 64 mmol/L 01/30/19 Unknown Medications & Allergies - Medications Allergies/Adverse Reactions: Allergies No Known Allergies Allergy (Unverified 05/06/17 15:50) Home Medications: Home Medications Medication Instructions Recorded Confirmed Last Taken Type amLODIPine [Norvasc] 10 mg PO QDAY 05/06/17 01/30/19 05/06/17 History Bicalutamide [Casodex] 50 mg PO QDAY #30 tablet 05/10/17 01/30/19 Unknown Rx Bisacodyl [Dulcolax suppos] 10 mg [place] QDAY PRN #30 supp.rect 05/10/17 01/30/19 Unknown Rx Docusate Sodium [Colace ORAL LIQ] 100 mg PO BID #60 oral.liqd 05/10/17 01/30/19 Unknown Rx Doxazosin [Cardura] 2 mg PO HS #60 tablet 05/10/17 01/30/19 Unknown Rx ISOSORBIDE MONOnitrate [Imdur ER] 30 mg PO QDAY #30 tablet 05/10/17 01/30/19 Unknown Rx Magnesium Hydroxide [Milk of 30 ml PO Q4H PRN #20 oral.liqd 05/10/17 01/30/19 Unknown Rx Magnesia] Megestrol [Megace] 20 mg PO DAILY PRN #30 tablet 05/10/17 01/30/19 Unknown Rx Tamsulosin [Flomax] 0.4 mg PO QDAY #30 capsule 05/10/17 01/30/19 Unknown Rx Active Medications: Generic Name Dose Route Start Last Admin Trade Name Freq PRN Reason Stop Dose Admin Acetaminophen 650 mg 01/30/19 11:39 Tylenol PO Q6H PRN Non Cardiac Pain or Temp>100.5 Acetaminophen/Hydrocodone Bitart 1 each 01/30/19 11:39 [place] 5/325 PO Q4H PRN Pain, Moderate (4-6) Albuterol 2.5 mg 01/30/19 11:33 Proventil IH Q4HRT PRN Shortness Of Breath Amlodipine Besylate 10 mg 01/30/19 18:00 01/31/19 09:28 Norvasc PO 10 mg QDAY [facility] Administration Docusate Sodium 100 mg 01/30/19 22:00 01/31/19 09:28 Colace PO 100 mg BID [facility] Administration Doxazosin Mesylate 2 mg 01/30/19 22:00 01/30/19 22:39 Cardura PO 2 mg HS [facility] Administration Furosemide 80 mg 01/30/19 18:00 01/31/19 05:28 Lasix IV 80 mg 0600,1800 [facility] Administration Ceftriaxone Sodium 2 gm in 100 mls @ 200 mls/hr 01/31/19 10:00 01/31/19 09:27 Rocephin/Ns 2 Gm/100 Ml IV 200 mls/hr Q24HR [facility] Administration Protocol Azithromycin 500 mg/ Sodium 250 mls @ 250 mls/hr 01/31/19 10:00 01/31/19 09:27 Chloride IV 250 mls/hr Q24HR [facility] Administration Heparin Sodium/Sodium Chloride 25,000 unit in 500 mls @ 20 mls/hr 01/30/19 18:00 01/31/19 02:55 Heparin/ 0.45% Nacl-25,000 Unit/500 Ml IV 1,050 units/hr TITRATE [facility] 21 mls/hr Titration Protocol 1,000 UNITS/HR Isosorbide Mononitrate 30 mg 01/30/19 18:00 01/31/19 09:28 Imdur PO 30 mg QDAY [facility] Administration Magnesium Hydroxide 30 ml 01/30/19 17:18 Milk Of Magnesia PO Q4H PRN Constipation Metolazone 5 mg 01/30/19 18:00 01/31/19 09:28 Zaroxolyn PO 5 mg QDAY [facility] Administration Morphine Sulfate 2 mg 01/30/19 11:39 Morphine IV Q4H PRN Pain , Severe (7-10) Ondansetron HCl 4 mg 01/30/19 11:39 Zofran IV Q4H PRN Nausea And Vomiting Pantoprazole Sodium 40 mg 01/31/19 10:00 01/31/19 09:28 Protonix PO 40 mg QDAY [facility] Administration Polyethylene Glycol 17 gm 01/30/19 11:39 Miralax 3350 PO QDAY PRN Constipation Tamsulosin HCl 0.4 mg 01/31/19 10:00 01/31/19 09:28 Flomax PO 0.4 mg QDAY [facility] Administration
[2019-01-31] MEDS ORDERED: HEPARIN SUB-Q SCH (11:39)
--- NOTE | 2019-01-31 12:19 | Progress Note ---
Assessment and Plan Assessment and plan: Patient is a 78 yo man with a history of hypertension, prostate cancer w/ bilateral hydronephrosis followed by Dr. Guzman, CHF and CKD 4 with last Cr 3.0 in 2017 (he was in ARF at the time) who presents to [facility] ED with SOB. His pulse ox was 66%. * WBC 23.5, hemoglobin 10.6 w/ MCV 77, nl plt, CO2 19, bun 38, Creatinine 2.5, BG 203, AST 220, ALT 118, nl bilirubin, Alk phos 285, troponin 0.044, proBNP 18,064, * pCXR Impression: Cardiomegaly and patchy bilateral perihilar opacities, left greater than right, findings may represent CHF with pulmonary edema. Acute on chronic suspected systolic heart failure: treat with iv lasix bid, consult Cardiology, order ECHO, admit Acute hypoxic respiratory failure: consult Pulm, off BIPAP/O2 on nasal canula Suspected Sepsis with bilateral pneumonia, WBC 23.5: get blood cultures, treat with ABX and nebs ARF/CKD stage 4 due to tubular stasis, screen for urinary retention and treat the heart failure, get U/S, consulted Nephrology Transaminitis: get U/s, get hepatitis panel==>?gallbladder inflammed, Acute on chronic AOCD: monitor h/h closely H/o prostate cancer and urinary retention/bilateral hydronephrosis: get U/S kidneys==>bilateral hydronephrosis, patient refuses heredia, I did speak with Dr. Cunningham who wants the heredia inserted. Elevated troponin: repeat, consulted Cardiology==>increasing troponin, started iv heparin drip on 01/30/19 DVT ppx sq heparin full code home med recon not updated Disposition: Admit 01/31/19: I spoke extensively with Ex Dr. Walter and daughter Izabela at bedside. First thing they mentioned to me is being transferred to [facility] under Dr. Bong Vail. It appears Ex Dr. Walter is very difficult in that she is very argumentive, interrupts often and interferes with care. For example, she says the IV heparin causes heart attacks and then patient doesn't want the therapy. Their daughter Izabela just shakes her head in frustration. Patient is refusing heredia catheter and abx. I investment counselor on the risk including and worsening clinical state by his non-adherence. He has bilateral hydronephrosis and urinary retention. He continues to refuse heredia catheter, he is having trouble initiating urination. This decision to refuse catheter may ultimately cause his demise which I told him. He still refuses. Dr. Chin, the russet repairer, came and recommended the heredia and he refuses. I spoke with Li from [facility] [place] at 12:15pm to initiate transfer for patient and family preference to Dr. Bong Vail. Li says the transfer process will have to go to Utilization Review tomorrow and they will call me tomorrow. poor prognosis ECHO done and pending Did not order HIDA scan because he is having trouble laying down due to the CHF CCT 35 minutes History Interval history: Patient was seen and examined. Follow-up on current diagnosis of CHF. No overnight events reported to me. Patient denies any chest pain, nausea/vomiting or severe headaches. Imaging, nursing note, chart, labs and old chart reviewed. Discussed with patient. Ex Dr. Walter and daughter Izabela at bedside I spoke with Li from [facility] transfer center at 12:15pm to initiate transfer to Dr. Bong Vail for patient and family choice. Li says it will have to go to Utilization Review tomorrow and they will call me tomorrow. Hospitalist Physical - Physical exam Narrative exam: Gen: thin frail, ill appearing, mild increase accessory muscles, barrel chest, Awake, Alert, Orientated HEENT: NCAT, EOMI, PERRL, OP Clear Neck: supple, no adenopathy, no thyromegaly, no JVD CVS/Heart: Regular tachycardia, normal S1S2, pulses present bilaterally Chest/Lungs: bibasilar crackles, diminished bs bilateral, coarse bs bilateral but worse on the left, Symmetrical chest expansion, good air entry bilaterally GI/Abdomen: soft, NTND, protuding soft umbilicus, good bowel sounds, no guarding or rebound /Bladder: no suprapubic tenderness, no CVA or paraspinal tenderness Extermity/Skin: lymphedema with chronic venous stasis, bilateral leg edema MSK: FROM x 4 Neuro: CN 2-12 grossly intact, no new focal deficits Psych: calm - Constitutional Vitals: Temp Pulse Resp BP Pulse Ox 97.6 F 107 H 18 132/65 97 01/31/19 08:54 01/31/19 10:22 01/31/19 10:22 01/31/19 08:54 01/31/19 10:22 Results - Labs CBC & Chem 7: 01/30/19 17:38 01/30/19 08:57 Labs: Laboratory Last Values WBC 23.5 K/mm3 (4.5-11.0) H 01/30/19 08:57 RBC 4.48 M/mm3 (3.65-5.03) 01/30/19 08:57 Hgb 11.0 gm/dl (11.8-15.2) L 01/30/19 17:38 Hct 34.3 % (35.5-45.6) L 01/30/19 17:38 MCV 77 fl (84-94) L 01/30/19 08:57 MCH 24 pg (28-32) L 01/30/19 08:57 MCHC 31 % (32-34) L 01/30/19 08:57 RDW 16.6 % (13.2-15.2) H 01/30/19 08:57 Plt Count 228 K/mm3 (140-440) 01/30/19 17:38 Lymph # Project Construction Assistant Manager 01/30/19 08:57 Add Manual Diff Complete 01/30/19 08:57 Total Counted 100 01/30/19 08:57 Seg Neuts % (Manual) 79.0 % (40.0-70.0) H 01/30/19 08:57 0 % 01/30/19 08:57 17.0 % (13.4-35.0) 01/30/19 08:57 Reactive Lymphs % (Man) 0 % 01/30/19 08:57 2.0 % (0.0-7.3) 01/30/19 08:57 1.0 % (0.0-4.3) 01/30/19 08:57 1.0 % (0.0-1.8) 01/30/19 08:57 0 % 01/30/19 08:57 0 % 01/30/19 08:57 0 % 01/30/19 08:57 0 % 01/30/19 08:57 Nucleated RBC % Not Reportable 01/30/19 08:57 Seg Neutrophils # Man 18.6 K/mm3 (1.8-7.7) H 01/30/19 08:57 Band Neutrophils # 0.0 K/mm3 01/30/19 08:57 4.0 K/mm3 (1.2-5.4) 01/30/19 08:57 Abs React Lymphs (Man) 0.0 K/mm3 01/30/19 08:57 0.5 K/mm3 (0.0-0.8) 01/30/19 08:57 0.2 K/mm3 (0.0-0.4) 01/30/19 08:57 0.2 K/mm3 (0.0-0.1) H 01/30/19 08:57 0.0 K/mm3 01/30/19 08:57 0.0 K/mm3 01/30/19 08:57 0.0 K/mm3 01/30/19 08:57 Blast Cells # 0.0 K/mm3 01/30/19 08:57 WBC Morphology Not Reportable 01/30/19 08:57 Hypersegmented Neuts Not Reportable 01/30/19 08:57 Hyposegmented Neuts Not Reportable 01/30/19 08:57 Hypogranular Neuts Not Reportable 01/30/19 08:57 Not Reportable 01/30/19 08:57 Not Reportable 01/30/19 08:57 Not Reportable 01/30/19 08:57 Not Reportable 01/30/19 08:57 Not Reportable 01/30/19 08:57 Not Reportable 01/30/19 08:57 Consistent w auto 01/30/19 08:57 Not Reportable 01/30/19 08:57 Plt Clumps, EDTA Not Reportable 01/30/19 08:57 Not Reportable 01/30/19 08:57 Few 01/30/19 08:57 Not Reportable 01/30/19 08:57 Plt Morphology Comment Not Reportable 01/30/19 08:57 RBC Morphology Not Reportable 01/30/19 08:57 Dimorphic RBCs Not Reportable 01/30/19 08:57 Not Reportable 01/30/19 08:57 Few 01/30/19 08:57 Not Reportable 01/30/19 08:57 Not Reportable 01/30/19 08:57 Not Reportable 01/30/19 08:57 Not Reportable 01/30/19 08:57 Not Reportable 01/30/19 08:57 Not Reportable 01/30/19 08:57 Not Reportable 01/30/19 08:57 Not Reportable 01/30/19 08:57 Not Reportable 01/30/19 08:57 Not Reportable 01/30/19 08:57 Not Reportable 01/30/19 08:57 Not Reportable 01/30/19 08:57 Not Reportable 01/30/19 08:57 Not Reportable 01/30/19 08:57 Not Reportable 01/30/19 08:57 Not Reportable 01/30/19 08:57 Not Reportable 01/30/19 08:57 Acanthocytes (Spur) Not Reportable 01/30/19 08:57 Rouleaux Not Reportable 01/30/19 08:57 Not Reportable 01/30/19 08:57 Not Reportable 01/30/19 08:57 Not Reportable 01/30/19 08:57 Not Reportable 01/30/19 08:57 Hem Pathologist Commnt No 01/30/19 08:57 PT 15.4 Sec. (12.2-14.9) H 01/30/19 17:38 INR 1.15 (0.87-1.13) H 01/30/19 17:38 APTT 32.3 Sec. (24.2-36.6) 01/30/19 17:38 Heparin Anti-Xa Level 0.14 U.I./ml (0.3-0.7) L 01/31/19 00:27 POC ABG pH 7.340 (7.35-7.45) L 01/30/19 11:31 POC ABG pCO2 46.6 (35-45) H 01/30/19 11:31 POC ABG pO2 114 (80-105) H 01/30/19 11:31 POC ABG HCO3 25.1 (22-26 mml/L) 01/30/19 11:31 POC ABG Total CO2 27 (23-27mmol/L) 01/30/19 11:31 POC ABG O2 Sat 98 01/30/19 11:31 POC ABG Base Excess -1 ((-2) - (+3)mmol/L) 01/30/19 11:31 VBG pH 7.240 (7.320-7.420) L 01/30/19 10:23 40 % 01/30/19 11:31 Sodium 141 mmol/L (137-145) 01/30/19 08:57 Potassium 3.8 mmol/L (3.6-5.0) 01/30/19 08:57 Chloride 103.1 mmol/L (98-107) 01/30/19 08:57 Carbon Dioxide 19 mmol/L (22-30) L 01/30/19 08:57 23 mmol/L 01/30/19 08:57 BUN 38 mg/dL (9-20) H 01/30/19 08:57 2.5 mg/dL (0.8-1.5) H 01/30/19 08:57 Estimated GFR 25 ml/min 01/30/19 08:57 15 % 01/30/19 08:57 Glucose 203 mg/dL (75-100) H 01/30/19 08:57 Lactic Acid 2.70 mmol/L (0.7-2.0) H* 01/30/19 17:38 Calcium 8.2 mg/dL (8.4-10.2) L 01/30/19 08:57 0.50 mg/dL (0.1-1.2) 01/30/19 08:57 AST 220 units/L (5-40) H 01/30/19 08:57 ALT 118 units/L (7-56) H 01/30/19 08:57 285 units/L (35-129) H 01/30/19 08:57 0.185 ng/mL (0.00-0.029) H* D 01/30/19 17:38 NT-Pro-B Natriuret Pep 96043 pg/mL (0-900) H 01/30/19 08:57 7.8 g/dL (6.3-8.2) 01/30/19 08:57 3.2 g/dL (3.9-5) L 01/30/19 08:57 0.7 % 01/30/19 08:57 Triglycerides 89 mg/dL (2-149) 01/30/19 08:57 Cholesterol 128 mg/dL (50-199) 01/30/19 08:57 92 mg/dL (50-130) 01/30/19 08:57 35 mg/dL (40-59) L 01/30/19 08:57 3.65 % 01/30/19 08:57 Yellow (Yellow) 01/30/19 11:28 Cloudy (Clear) 01/30/19 11:28 6.0 (5.0-7.0) 01/30/19 11:28 Ur Specific [place] 1.006 (1.003-1.030) 01/30/19 11:28 100 mg/dl mg/dL (Negative) 01/30/19 11:28 Neg mg/dL (Negative) 01/30/19 11:28 Neg mg/dL (Negative) 01/30/19 11:28 Mod (Negative) 01/30/19 11:28 Neg (Negative) 01/30/19 11:28 Neg (Negative) 01/30/19 11:28 < 2.0 mg/dL (<2.0) 01/30/19 11:28 Ur Leukocyte Esterase Lg (Negative) 01/30/19 11:28 > 182.0 /HPF (0.0-6.0) H 01/30/19 11:28 27.0 /HPF (0.0-6.0) 01/30/19 11:28 U Epithel Cells (Auto) < 1.0 /HPF (0-13.0) 01/30/19 11:28 4+ /HPF (Negative) 01/30/19 11:28 2+ /HPF 01/30/19 11:28 Few /HPF 01/30/19 11:28 45.1 mg/dL (0.1-20.0) H 01/30/19 Unknown 64 mmol/L 01/30/19 Unknown Active Medications - Current Medications Current Medications: Generic Name Dose Route Start Last Admin Trade Name Freq PRN Reason Stop Dose Admin Acetaminophen 650 mg 01/30/19 11:39 Tylenol PO Q6H PRN Non Cardiac Pain or Temp>100.5 Acetaminophen/Hydrocodone Bitart 1 each 01/30/19 11:39 [place] 5/325 PO Q4H PRN Pain, Moderate (4-6) Albuterol 2.5 mg 01/30/19 11:33 Proventil IH Q4HRT PRN Shortness Of Breath Amlodipine Besylate 10 mg 01/30/19 18:00 01/31/19 09:28 Norvasc PO 10 mg QDAY DEXTER Administration Aspirin 325 mg 01/31/19 12:00 Aspirin PO QDAY DEXTER Docusate Sodium 100 mg 01/30/19 22:00 01/31/19 09:28 Colace PO 100 mg BID DEXTER Administration Doxazosin Mesylate 2 mg 01/30/19 22:00 01/30/19 22:39 Cardura PO 2 mg HS DEXTER Administration Furosemide 80 mg 01/30/19 18:00 01/31/19 05:28 Lasix IV 80 mg 0600,1800 DEXTER Administration Ceftriaxone Sodium 2 gm in 100 mls @ 200 mls/hr 01/31/19 10:00 01/31/19 09:27 Rocephin/Ns 2 Gm/100 Ml IV 200 mls/hr Q24HR DEXTER Administration Protocol Azithromycin 500 mg/ Sodium 250 mls @ 250 mls/hr 01/31/19 10:00 01/31/19 09:27 Chloride IV 250 mls/hr Q24HR DEXTER Administration Heparin Sodium/Sodium Chloride 25,000 unit in 500 mls @ 20 mls/hr 01/30/19 18:00 01/31/19 02:55 Heparin/ 0.45% Nacl-25,000 Unit/500 Ml IV 1,050 units/hr TITRATE DEXTER 21 mls/hr Titration Protocol 1,000 UNITS/HR Isosorbide Mononitrate 30 mg 01/30/19 18:00 01/31/19 09:28 Imdur PO 30 mg QDAY DEXTER Administration Magnesium Hydroxide 30 ml 01/30/19 17:18 Milk Of Magnesia PO Q4H PRN Constipation Metolazone 5 mg 01/30/19 18:00 01/31/19 09:28 Zaroxolyn PO 5 mg QDAY DEXTER Administration Morphine Sulfate 2 mg 01/30/19 11:39 Morphine IV Q4H PRN Pain , Severe (7-10) Ondansetron HCl 4 mg 01/30/19 11:39 Zofran IV Q4H PRN Nausea And Vomiting Pantoprazole Sodium 40 mg 01/31/19 10:00 01/31/19 09:28 Protonix PO 40 mg QDAY DEXTER Administration Polyethylene Glycol 17 gm 01/30/19 11:39 Miralax 3350 PO QDAY PRN Constipation Tamsulosin HCl 0.4 mg 01/31/19 10:00 01/31/19 09:28 Flomax PO 0.4 mg QDAY DEXTER Administration
[2019-01-31 13:18] LABS: Hematocrit 28.4 % (35.5-45.6); Hemoglobin 9.2 gm/dl (11.8-15.2); Mean Corpuscular HGB Conc 33 % (32-34); Mean Corpuscular Volume 75 fl (84-94); Platelet Count 218 K/mm3 (140-440); Red Blood Count 3.77 M/mm3 (3.65-5.03); Red Cell Distribution Width 15.9 % (13.2-15.2)
[2019-01-31 13:40] LABS: Albumin 2.6 g/dL (3.9-5); Calcium 8.1 mg/dL (8.4-10.2)
[2019-01-31] MEDS: ASPIRIN PO SCH (13:44)
--- NOTE | 2019-01-31 14:16 | Progress Note ---
Assessment and Plan 78 y/o male with acute respiratory failure secondary to pulmonary edema from hypertensive Emergency 1. Bipap PRN 2. Agree with BID lasix therapy. Needs strict I/O 3. Will need walk test prior to discharge if not weaned off oxygen prior to then. 4. Wean oxygen for sats >88% 5. BP control Will continue to follow along with you. Thank you for this consult. Subjective Date of service: 01/31/19 Interval history: Pulm status is much improved. Non labored breathing and off bipap therapy. Currently on nasal cannula at about 3-4 liters. Daughter at bedside. Patient with questions about catheter's that renal had discussed already with him. Objective Vital Signs - 12hr 01/31/19 01/31/19 01/31/19 04:08 08:54 10:22 Temperature 98.0 F 97.6 F Pulse Rate 52 L 86 107 H Respiratory 18 14 18 Rate Blood Pressure 140/72 132/65 O2 Sat by Pulse 96 96 97 Oximetry Constitutional: alert, appears uncomfortable Eyes: non-icteric ENT: other (full face mask bipap is present) Neck: supple Effort: mildly labored Ascultation: Bilateral: rales Cardiovascular: other (tachycardic, feels sinus) Gastrointestinal: normoactive bowel sounds, soft CBC and BMP: 01/31/19 13:02 01/31/19 13:02 ABG, PT/INR, D-dimer: ABG POC ABG pH 7.340 (7.35-7.45) L 01/30/19 11:31 POC ABG pCO2 46.6 (35-45) H 01/30/19 11:31 POC ABG pO2 114 (80-105) H 01/30/19 11:31 POC ABG HCO3 25.1 (22-26 mml/L) 01/30/19 11:31 POC ABG Total CO2 27 (23-27mmol/L) 01/30/19 11:31 POC ABG O2 Sat 98 01/30/19 11:31 PT/INR, D-dimer PT 15.4 Sec. (12.2-14.9) H 01/30/19 17:38 INR 1.15 (0.87-1.13) H 01/30/19 17:38 Abnormal lab findings: Abnormal Labs 01/30/19 01/30/1901/30/19 08:57 08:57 08:57 WBC 23.5 H Hgb 10.6 L Hct 34.4 L MCV 77 L MCH 24 L MCHC 31 L RDW 16.6 H Seg Neuts % (Manual) 79.0 H Seg Neutrophils # Man 18.6 H Basophils # (Manual) 0.2 H PT 15.4 H INR 1.15 H Heparin Anti-Xa Level POC ABG pH POC ABG pCO2 POC ABG pO2 VBG pH Carbon Dioxide 19 L BUN 38 H Creatinine 2.5 H Glucose 203 H Lactic Acid Calcium 8.2 L AST 220 H ALT 118 H Alkaline Phosphatase 285 H Troponin T 0.044 H NT-Pro-B Natriuret Pep 80903 H Albumin 3.2 L HDL Cholesterol 35 L Urine WBC (Auto) Urine Creatinine 01/30/19 01/30/19 01/30/19 10:23 10:23 10:38 WBC Hgb Hct MCV MCH MCHC RDW Seg Neuts % (Manual) Seg Neutrophils # Man Basophils # (Manual) PT INR Heparin Anti-Xa Level POC ABG pH POC ABG pCO2 POC ABG pO2 VBG pH 7.240 L Carbon Dioxide BUN Creatinine Glucose Lactic Acid 3.00 H* Calcium AST ALT Alkaline Phosphatase Troponin T 0.084 H D NT-Pro-B Natriuret Pep Albumin HDL Cholesterol Urine WBC (Auto) Urine Creatinine 01/30/19 01/30/19 01/30/19 11:28 11:31 16:17 WBC Hgb Hct MCV MCH MCHC RDW Seg Neuts % (Manual) Seg Neutrophils # Man Basophils # (Manual) PT INR Heparin Anti-Xa Level POC ABG pH 7.340 L POC ABG pCO2 46.6 H POC ABG pO2 114 H VBG pH Carbon Dioxide BUN Creatinine Glucose Lactic Acid 2.10 H* Calcium AST ALT Alkaline Phosphatase Troponin T NT-Pro-B Natriuret Pep Albumin HDL Cholesterol Urine WBC (Auto) > 182.0 H Urine Creatinine 01/30/19 01/30/19 01/30/19 16:17 17:38 17:38 WBC Hgb Hct MCV MCH MCHC RDW Seg Neuts % (Manual) Seg Neutrophils # Man Basophils # (Manual) PT INR Heparin Anti-Xa Level POC ABG pH POC ABG pCO2 POC ABG pO2 VBG pH Carbon Dioxide BUN Creatinine Glucose Lactic Acid 2.70 H* Calcium AST ALT Alkaline Phosphatase Troponin T 0.124 H* D 0.185 H* D NT-Pro-B Natriuret Pep Albumin HDL Cholesterol Urine WBC (Auto) Urine Creatinine 01/30/19 01/30/19 01/30/19 17:38 17:38 Unknown WBC Hgb 11.0 L Hct 34.3 L MCV MCH MCHC RDW Seg Neuts % (Manual) Seg Neutrophils # Man Basophils # (Manual) PT 15.4 H INR 1.15 H Heparin Anti-Xa Level POC ABG pH POC ABG pCO2 POC ABG pO2 VBG pH Carbon Dioxide BUN Creatinine Glucose Lactic Acid Calcium AST ALT Alkaline Phosphatase Troponin T NT-Pro-B Natriuret Pep Albumin HDL Cholesterol Urine WBC (Auto) Urine Creatinine 45.1 H 01/31/19 01/31/19 01/31/19 00:27 13:02 13:02 WBC Hgb 9.2 L Hct 28.4 L MCV 75 L MCH 25 L MCHC RDW 15.9 H Seg Neuts % (Manual) Seg Neutrophils # Man Basophils # (Manual) PT INR Heparin Anti-Xa Level 0.14 L POC ABG pH POC ABG pCO2 POC ABG pO2 VBG pH Carbon Dioxide BUN 41 H Creatinine 2.5 H Glucose 143 H Lactic Acid Calcium 8.1 L AST 68 H ALT 61 H Alkaline Phosphatase 184 H Troponin T NT-Pro-B Natriuret Pep Albumin 2.6 L HDL Cholesterol Urine WBC (Auto) Urine Creatinine 01/31/19 13:02 WBC Hgb Hct MCV MCH MCHC RDW Seg Neuts % (Manual) Seg Neutrophils # Man Basophils # (Manual) PT INR Heparin Anti-Xa Level 0.29 L POC ABG pH POC ABG pCO2 POC ABG pO2 VBG pH Carbon Dioxide BUN Creatinine Glucose Lactic Acid Calcium AST ALT Alkaline Phosphatase Troponin T NT-Pro-B Natriuret Pep Albumin HDL Cholesterol Urine WBC (Auto) Urine Creatinine
[2019-01-31] MEDS: HEPARIN/ 0.45% NACL-25,000 UNIT/500 ML 25,000 UNIT/500 ML BAG IV SCH ×2 (15:53→17:37)
[2019-01-31 22:23] LABS: Calcium 7.8 mg/dL (8.4-10.2)
--- NOTE | 2019-01-31 22:48 | Consultation ---
CARDIOLOGY CONSULTATION HISTORY OF PRESENT ILLNESS: The patient is a pleasant 78-year-old gentleman who is new to our service with a history of hypertension, chronic kidney disease, prostate cancer with bilateral hydronephrosis, saw the Urology, who presents to the Emergency Room with shortness of breath over the past several days. He was placed on BiPAP in the Emergency Room. He was seen on telemetry today feeling much better, less shortness of breath, no chest pain, syncope, or presyncope. His blood pressure is noted to be markedly elevated in the Emergency Room. PAST SURGICAL HISTORY: Prostate seeds and implant. SOCIAL HISTORY: Nonsmoker, nondrinker. FAMILY HISTORY: No family history of premature heart disease. REVIEW OF SYSTEMS: As per HPI, mild fatigue; malaise; shortness of breath, improved. No chest pain, no syncope, palpitations, dizziness, blurred vision, headache, abdominal pain, bleeding diathesis, or rash. ALLERGIES: No known drug, food, or environmental allergies. MEDICATIONS: Inpatient and outpatient medications reviewed. PHYSICAL EXAMINATION: VITAL SIGNS: Blood pressure is 130/60, vastly improved. EKG reveals sinus rhythm, poor R-wave progression LVH, O2 sats 97% on room air. HEENT: Sclerae are icteric. NECK: Supple. No masses. No JVD. CHEST: Clear to auscultation bilaterally. Good air movement. CARDIOVASCULAR: Regular rhythm, S1, S2. S4 is present. ABDOMEN: Soft, nontender, nondistended. Normoactive bowel sounds heard in all 4 quadrants. No mass or bruits. RESPIRATORY: Decreased breath sounds bilateral bases with mild bibasilar crackles. ABDOMEN: Soft, nontender. EXTREMITIES: 2-3+ edema in bilateral lower extremities. No rashes. LABORATORY DATA: Chest x-ray from 01/30/2019 reveals cardiomegaly, bilateral patchy infiltrates. Abdominal ultrasound revealed distended gallbladder, pericholecystic fluid, right hydronephrosis. ECG: ECG is aforementioned. LABORATORY DATA: Hemoglobin 11.0, WBC is 23.5, hematocrit 34.4, platelets 228. INR 1.1. Potassium is 3.8, creatinine is 2.1. AST is 220, ALT is 118. Troponin 0.18. ProBNP 18,000. ASSESSMENT: In summary, the patient is a pleasant 78-year-old gentleman: 1. Acute hypoxemic respiratory failure in the setting of hypertensive crisis and [id number] renal failure, questionable flash pulmonary edema likely concomitant acute on chronic heart failure, etiology unclear. Echo pending. 2. Acute on chronic renal failure. 3. Questionable urinary tract infection/pneumonia. 4. History of prostate cancer. 5. Mildly elevated troponin, which is nonspecific in the setting of acute renal failure at 0.18. PLAN: At this point, follow up on echocardiogram. Continue blood pressure management, IV diuresis. Renal is on board, clinically improving. Initiate aspirin therapy, may discontinue heparin therapy at this time. We will continue to follow along with you. Thank you for this consultation. JOB# [id number] JOHN/LASHAUN
[2019-01-31] MEDS: CARDURA PO SCH (23:15)
[2019-02-01] MEDS: LASIX IV SCH ×2 (05:54→17:14)
[2019-02-01 07:21] LABS: Hematocrit 27.4 % (35.5-45.6); Mean Corpuscular HGB Conc 33 % (32-34); Mean Corpuscular Volume 75 fl (84-94); Platelet Count 206 K/mm3 (140-440); Red Blood Count 3.67 M/mm3 (3.65-5.03); Red Cell Distribution Width 15.8 % (13.2-15.2)
[2019-02-01 07:42] LABS: Albumin 2.5 g/dL (3.9-5); Calcium 7.8 mg/dL (8.4-10.2)
--- NOTE | 2019-02-01 08:04 | Progress Note ---
Assessment and Plan 1. Acute kidney injury: JOSELITO superimposed on CKD stage 4 in the setting of CHF exacerbation. Suspect Cardio-renal syndrome. Renal US results noted. Monitor renal function. Renal prognosis is guarded ot poor. Avoid nephrotoxic agents. Meds dosage based on GFR. 2. FEN: Volume overload, inadequate diuresis inspite of high dose IV Lasix and Metolazone. Patient still refusing Isolated UF / hemodialysis. Metabolic acidosis, improved. 3. CHF exacerbation. 4. Respiratory failure: Followed by Pulmonary. Was on BIPAP. 5. Hypertensive urgency: BP is better. 6. H/o prostate cancer with obstruction: Patient refused [place]. Seen by Urologist. Monitor. 7. UTI: IV Abx. 8. Anemia. 9. Medical non-compliance: Compliance encouraged. Patient has been refusing most of the treatments. Subjective Date of service: 02/01/19 Interval history: Patient was seen and examined at the bedside. No new complaint. Objective - Vital Signs Vital signs: Vital Signs - 12hr 01/31/19 02/01/19 02/01/19 23:44 00:00 04:13 Temperature 98.0 F 98.0 F Pulse Rate 92 H 87 104 H Respiratory 18 18 Rate Blood Pressure 159/81 146/95 O2 Sat by Pulse 97 97 Oximetry - General Appearance General appearance: well-developed, appears stated age, other (slight tachypnea noted) EENT: ATNC, PERRL, mucous membranes moist, hearing intact, vision intact Neck: JVD, supple Respiratory: Present: Rales Cardiology: S1S2, no murmurs Gastrointestinal: normoactive bowel sounds, no tenderness, no distended Integumentary: no rash Neurologic: no focal deficit, no asterixis, alert and oriented x3 Musculoskeletal: other (2+ edema of both LEs noted) - Lab 02/01/19 06:59 02/01/19 06:59 Most recent lab results Calcium 7.8 mg/dL (8.4-10.2) L 02/01/19 06:59 Phosphorus 3.20 mg/dL (2.5-4.5) 02/01/19 06:59 Magnesium 1.80 mg/dL (1.7-2.3) 01/31/19 13:02 45.1 mg/dL (0.1-20.0) H 01/30/19 Unknown 64 mmol/L 01/30/19 Unknown Medications & Allergies - Medications Allergies/Adverse Reactions: Allergies No Known Allergies Allergy (Unverified 05/06/17 15:50) Home Medications: Home Medications Medication Instructions Recorded Confirmed Last Taken Type amLODIPine [Norvasc] 10 mg PO QDAY 05/06/17 01/30/19 05/06/17 History Bicalutamide [Casodex] 50 mg PO QDAY #30 tablet 05/10/17 01/30/19 Unknown Rx Bisacodyl [Dulcolax suppos] 10 mg SD QDAY PRN #30 supp.rect 05/10/17 01/30/19 Unknown Rx Docusate Sodium [Colace ORAL LIQ] 100 mg PO BID #60 oral.liqd 05/10/17 01/30/19 Unknown Rx Doxazosin [Cardura] 2 mg PO HS #60 tablet 05/10/17 01/30/19 Unknown Rx ISOSORBIDE MONOnitrate [Imdur ER] 30 mg PO QDAY #30 tablet 05/10/17 01/30/19 Unknown Rx Magnesium Hydroxide [Milk of 30 ml PO Q4H PRN #20 oral.liqd 05/10/17 01/30/19 Unknown Rx Magnesia] Megestrol [Megace] 20 mg PO DAILY PRN #30 tablet 05/10/17 01/30/19 Unknown Rx Tamsulosin [Flomax] 0.4 mg PO QDAY #30 capsule 05/10/17 01/30/19 Unknown Rx Active Medications: Generic Name Dose Route Start Last Admin Trade Name Freq PRN Reason Stop Dose Admin Acetaminophen 650 mg 01/30/19 11:39 Tylenol PO Q6H PRN Non Cardiac Pain or Temp>100.5 Acetaminophen/Hydrocodone Bitart 1 each 01/30/19 11:39 [place] 5/325 PO Q4H PRN Pain, Moderate (4-6) Albuterol 2.5 mg 01/30/19 11:33 Proventil IH Q4HRT PRN Shortness Of Breath Amlodipine Besylate 10 mg 01/30/19 18:00 01/31/19 09:28 Norvasc PO 10 mg QDAY [facility] Administration Aspirin 325 mg 01/31/19 12:00 01/31/19 13:44 Aspirin PO 325 mg QDAY [facility] Administration Docusate Sodium 100 mg 01/30/19 22:00 01/31/19 23:15 Colace PO 100 mg BID D[facility]TER Administration Doxazosin Mesylate 2 mg 01/30/19 22:00 01/31/19 23:15 Cardura PO 2 mg HS D[facility]TER Administration Furosemide 80 mg 01/30/19 18:00 02/01/19 05:54 Lasix IV 80 mg 0600,1800 [facility]TER Administration Ceftriaxone Sodium 2 gm in 100 mls @ 200 mls/hr 01/31/19 10:00 01/31/19 22:21 Rocephin/Ns 2 Gm/100 Ml IV 200 mls/hr Q24HR [facility] Administration Protocol Azithromycin 500 mg/ Sodium 250 mls @ 250 mls/hr 01/31/19 10:00 01/31/19 20:47 Chloride IV 250 mls/hr Q24HR [facility] Administration Heparin Sodium/Sodium Chloride 25,000 unit in 500 mls @ 20 mls/hr 01/30/19 18:00 01/31/19 23:13 Heparin/ 0.45% Nacl-25,000 Unit/500 Ml IV 1,250 units/hr TITRATE DEXTER 25 mls/hr Titration Protocol 1,000 UNITS/HR Isosorbide Mononitrate 30 mg 01/30/19 18:00 01/31/19 09:28 Imdur PO 30 mg QDAY [facility] Administration Magnesium Hydroxide 30 ml 01/30/19 17:18 Milk Of Magnesia PO Q4H PRN Constipation Metolazone 5 mg 01/30/19 18:00 01/31/19 09:28 Zaroxolyn PO 5 mg QDAY [facility] Administration Morphine Sulfate 2 mg 01/30/19 11:39 Morphine IV Q4H PRN Pain , Severe (7-10) Ondansetron HCl 4 mg 01/30/19 11:39 Zofran IV Q4H PRN Nausea And Vomiting Pantoprazole Sodium 40 mg 01/31/19 10:00 01/31/19 09:28 Protonix PO 40 mg QDAY [facility] Administration Polyethylene Glycol 17 gm 01/30/19 11:39 Miralax 3350 PO QDAY PRN Constipation Tamsulosin HCl 0.4 mg 01/31/19 10:00 01/31/19 09:28 Flomax PO 0.4 mg QDAY D[facility]TER Administration
--- NOTE | 2019-02-01 10:42 | Progress Note ---
Assessment and Plan Assessment and plan: Patient is a 78 yo man with a history of hypertension, prostate cancer w/ bilateral hydronephrosis followed by Dr. Guzman, CHF and CKD 4 with last Cr 3.0 in 2017 (he was in ARF at the time) who presents to [facility] ED with SOB. His pulse ox was 66%. * WBC 23.5, hemoglobin 10.6 w/ MCV 77, nl plt, CO2 19, bun 38, Creatinine 2.5, BG 203, AST 220, ALT 118, nl bilirubin, Alk phos 285, troponin 0.044, proBNP 18,064, * pCXR Impression: Cardiomegaly and patchy bilateral perihilar opacities, left greater than right, findings may represent CHF with pulmonary edema. * 2D ECHO conclusions left ventricular size is mild to moderate dilated, mild to moderated concentric LVH, severe global hypokinesis of the left ventricle is observed, estimated EF is 30-35%, abnormal left vnetriculare dysfucntion, left atrium is severely dilated, mild AR, moderate MR, evidence of moderate pulmonary hypertension, moderate pericardial effusion. * Did not order HIDA scan because he is having trouble laying down due to the CHF Acute on chronic suspected systolic heart failure: treat with iv lasix bid, consult Cardiology, order ECHO, admit Acute hypoxic respiratory failure: consult Pulm, off BIPAP/O2 on nasal canula Suspected Sepsis with bilateral pneumonia, WBC 23.5: get blood cultures, treat with ABX and nebs ARF/CKD stage 4 due to tubular stasis, screen for urinary retention and treat the heart failure, get U/S, consulted Nephrology Transaminitis: get U/s, get hepatitis panel==>?gallbladder inflammed, Acute on chronic AOCD: monitor h/h closely H/o prostate cancer and urinary retention/bilateral hydronephrosis: get U/S kidneys==>bilateral hydronephrosis, patient refuses heredia, I did speak with Dr. Cunningham who wants the heredia inserted. Elevated troponin: repeat, consulted Cardiology==>increasing troponin, started iv heparin drip on 01/30/19 DVT ppx sq heparin full code home med recon not updated Disposition: Admit 01/31/19: I spoke extensively with Ex Dr. Walter and daughter Izabela at bedside. First thing they mentioned to me is being transferred to [place] under Dr. Bong Vail. It appears Ex Walter is very difficult in that she is very argumentive, interrupts often and interferes with care. For example, she says the IV heparin causes heart attacks and then patient doesn't want the therapy. Their daughter Izabela just shakes her head in frustration. Patient is refusing heredia catheter and abx. I marriage counselor on the risk including and worsening clinical state by his non-adherence. He has bilateral hydronephrosis and urinary retention. He continues to refuse heredia catheter, he is having trouble initiating urination. This decision to refuse catheter may ultimately cause his demise which I told him. He still refuses. Dr. Chin, the pile driver, came and recommended the heredia and he refuses. I spoke with Li from [place] transfer center at 12:15pm to initiate transfer for patient and family preference to Dr. Bong Vail. Li says the transfer process will have to go to Utilization Review tomorrow and they will call me tomorrow. 02/01/19: Today, Darrell called me from [place] [facility] to say patient insurance has been sent to [employer] and she will let me know. I still have not spoken with another physician from [place]. Patient still refusing heredia, counseling done again. poor prognosis History Interval history: Patient was seen and examined. Follow-up on current diagnosis of CHF. No overnight events reported to me. Patient denies any chest pain, nausea/vomiting or severe headaches. Imaging, nursing note, chart, labs and old chart reviewed. Discussed with patient. No family at bedside Hospitalist Physical - Physical exam Narrative exam: Gen: thin frail, ill appearing, mild increase accessory muscles, barrel chest, Awake, Alert, Orientated HEENT: NCAT, EOMI, PERRL, OP Clear Neck: supple, no adenopathy, no thyromegaly, no JVD CVS/Heart: Regular tachycardia, normal S1S2, pulses present bilaterally Chest/Lungs: bibasilar crackles, diminished bs bilateral, coarse bs bilateral but worse on the left, Symmetrical chest expansion, good air entry bilaterally GI/Abdomen: soft, NTND, protuding soft umbilicus, good bowel sounds, no guarding or rebound /Bladder: no suprapubic tenderness, no CVA or paraspinal tenderness Extermity/Skin: lymphedema with chronic venous stasis, bilateral leg edema MSK: FROM x 4 Neuro: CN 2-12 grossly intact, no new focal deficits Psych: calm - Constitutional Vitals: Temp Pulse Resp BP Pulse Ox 98.6 F 65 18 139/71 88 02/01/19 08:54 02/01/19 08:54 02/01/19 08:54 02/01/19 08:54 02/01/19 08:54 Results - Labs CBC & Chem 7: 02/01/19 06:59 02/01/19 06:59 Labs: Laboratory Last Values WBC 5.7 K/mm3 (4.5-11.0) 02/01/19 06:59 RBC 3.67 M/mm3 (3.65-5.03) 02/01/19 06:59 Hgb 9.0 gm/dl (11.8-15.2) L 02/01/19 06:59 Hct 27.4 % (35.5-45.6) L 02/01/19 06:59 MCV 75 fl (84-94) L 02/01/19 06:59 MCH 24 pg (28-32) L 02/01/19 06:59 MCHC 33 % (32-34) 02/01/19 06:59 RDW 15.8 % (13.2-15.2) H 02/01/19 06:59 Plt Count 206 K/mm3 (140-440) 02/01/19 06:59 Lymph # Cardiovascular Disease Specialist 01/30/19 08:57 Add Manual Diff Complete 01/30/19 08:57 Total Counted 100 01/30/19 08:57 Seg Neuts % (Manual) 79.0 % (40.0-70.0) H 01/30/19 08:57 0 % 01/30/19 08:57 17.0 % (13.4-35.0) 01/30/19 08:57 Reactive Lymphs % (Man) 0 % 01/30/19 08:57 2.0 % (0.0-7.3) 01/30/19 08:57 1.0 % (0.0-4.3) 01/30/19 08:57 1.0 % (0.0-1.8) 01/30/19 08:57 0 % 01/30/19 08:57 0 % 01/30/19 08:57 0 % 01/30/19 08:57 0 % 01/30/19 08:57 Nucleated RBC % Not Reportable 01/30/19 08:57 Seg Neutrophils # Man 18.6 K/mm3 (1.8-7.7) H 01/30/19 08:57 Band Neutrophils # 0.0 K/mm3 01/30/19 08:57 4.0 K/mm3 (1.2-5.4) 01/30/19 08:57 Abs React Lymphs (Man) 0.0 K/mm3 01/30/19 08:57 0.5 K/mm3 (0.0-0.8) 01/30/19 08:57 0.2 K/mm3 (0.0-0.4) 01/30/19 08:57 0.2 K/mm3 (0.0-0.1) H 01/30/19 08:57 0.0 K/mm3 01/30/19 08:57 0.0 K/mm3 01/30/19 08:57 0.0 K/mm3 01/30/19 08:57 Blast Cells # 0.0 K/mm3 01/30/19 08:57 WBC Morphology Not Reportable 01/30/19 08:57 Hypersegmented Neuts Not Reportable 01/30/19 08:57 Hyposegmented Neuts Not Reportable 01/30/19 08:57 Hypogranular Neuts Not Reportable 01/30/19 08:57 Not Reportable 01/30/19 08:57 Not Reportable 01/30/19 08:57 Not Reportable 01/30/19 08:57 Not Reportable 01/30/19 08:57 Not Reportable 01/30/19 08:57 Not Reportable 01/30/19 08:57 Consistent w auto 01/30/19 08:57 Not Reportable 01/30/19 08:57 Plt Clumps, EDTA Not Reportable 01/30/19 08:57 Not Reportable 01/30/19 08:57 Few 01/30/19 08:57 Not Reportable 01/30/19 08:57 Plt Morphology Comment Not Reportable 01/30/19 08:57 RBC Morphology Not Reportable 01/30/19 08:57 Dimorphic RBCs Not Reportable 01/30/19 08:57 Not Reportable 01/30/19 08:57 Few 01/30/19 08:57 Not Reportable 01/30/19 08:57 Not Reportable 01/30/19 08:57 Not Reportable 01/30/19 08:57 Not Reportable 01/30/19 08:57 Not Reportable 01/30/19 08:57 Not Reportable 01/30/19 08:57 Not Reportable 01/30/19 08:57 Not Reportable 01/30/19 08:57 Not Reportable 01/30/19 08:57 Not Reportable 01/30/19 08:57 Not Reportable 01/30/19 08:57 Not Reportable 01/30/19 08:57 Not Reportable 01/30/19 08:57 Not Reportable 01/30/19 08:57 Not Reportable 01/30/19 08:57 Not Reportable 01/30/19 08:57 Not Reportable 01/30/19 08:57 Acanthocytes (Spur) Not Reportable 01/30/19 08:57 Rouleaux Not Reportable 01/30/19 08:57 Not Reportable 01/30/19 08:57 Not Reportable 01/30/19 08:57 Not Reportable 01/30/19 08:57 Not Reportable 01/30/19 08:57 Hem Pathologist Commnt No 01/30/19 08:57 PT 15.4 Sec. (12.2-14.9) H 01/30/19 17:38 INR 1.15 (0.87-1.13) H 01/30/19 17:38 APTT 32.3 Sec. (24.2-36.6) 01/30/19 17:38 Heparin Anti-Xa Level 0.67 U.I./ml (0.3-0.7) 02/01/19 06:59 POC ABG pH 7.340 (7.35-7.45) L 01/30/19 11:31 POC ABG pCO2 46.6 (35-45) H 01/30/19 11:31 POC ABG pO2 114 (80-105) H 01/30/19 11:31 POC ABG HCO3 25.1 (22-26 mml/L) 01/30/19 11:31 POC ABG Total CO2 27 (23-27mmol/L) 01/30/19 11:31 POC ABG O2 Sat 98 01/30/19 11:31 POC ABG Base Excess -1 ((-2) - (+3)mmol/L) 01/30/19 11:31 VBG pH 7.240 (7.320-7.420) L 01/30/19 10:23 40 % 01/30/19 11:31 Sodium 138 mmol/L (137-145) 02/01/19 06:59 Potassium 3.2 mmol/L (3.6-5.0) L 02/01/19 06:59 Chloride 98.3 mmol/L (98-107) 02/01/19 06:59 Carbon Dioxide 26 mmol/L (22-30) 02/01/19 06:59 17 mmol/L 02/01/19 06:59 BUN 40 mg/dL (9-20) H 02/01/19 06:59 2.6 mg/dL (0.8-1.5) H 02/01/19 06:59 Estimated GFR 24 ml/min 02/01/19 06:59 15 % 02/01/19 06:59 Glucose 120 mg/dL (75-100) H 02/01/19 06:59 Lactic Acid 1.40 mmol/L (0.7-2.0) 01/31/19 13:02 Calcium 7.8 mg/dL (8.4-10.2) L 02/01/19 06:59 Phosphorus 3.20 mg/dL (2.5-4.5) 02/01/19 06:59 Magnesium 1.80 mg/dL (1.7-2.3) 01/31/19 13:02 0.20 mg/dL (0.1-1.2) 02/01/19 06:59 AST 48 units/L (5-40) H 02/01/19 06:59 ALT 46 units/L (7-56) 02/01/19 06:59 146 units/L (35-129) H 02/01/19 06:59 0.185 ng/mL (0.00-0.029) H* D 01/30/19 17:38 NT-Pro-B Natriuret Pep 62902 pg/mL (0-900) H 01/30/19 08:57 6.0 g/dL (6.3-8.2) L 02/01/19 06:59 2.5 g/dL (3.9-5) L 02/01/19 06:59 0.7 % 02/01/19 06:59 Triglycerides 89 mg/dL (2-149) 01/30/19 08:57 Cholesterol 128 mg/dL (50-199) 01/30/19 08:57 92 mg/dL (50-130) 01/30/19 08:57 35 mg/dL (40-59) L 01/30/19 08:57 3.65 % 01/30/19 08:57 TSH 0.686 mlU/mL (0.270-4.200) 01/31/19 13:02 Yellow (Yellow) 01/30/19 11:28 Cloudy (Clear) 01/30/19 11:28 6.0 (5.0-7.0) 01/30/19 11:28 Ur Specific [place] 1.006 (1.003-1.030) 01/30/19 11:28 100 mg/dl mg/dL (Negative) 01/30/19 11:28 Neg mg/dL (Negative) 01/30/19 11:28 Neg mg/dL (Negative) 01/30/19 11:28 Mod (Negative) 01/30/19 11:28 Neg (Negative) 01/30/19 11:28 Neg (Negative) 01/30/19 11:28 < 2.0 mg/dL (<2.0) 01/30/19 11:28 Ur Leukocyte Esterase Lg (Negative) 01/30/19 11:28 > 182.0 /HPF (0.0-6.0) H 01/30/19 11:28 27.0 /HPF (0.0-6.0) 01/30/19 11:28 U Epithel Cells (Auto) < 1.0 /HPF (0-13.0) 01/30/19 11:28 4+ /HPF (Negative) 01/30/19 11:28 2+ /HPF 01/30/19 11:28 Few /HPF 01/30/19 11:28 45.1 mg/dL (0.1-20.0) H 01/30/19 Unknown 64 mmol/L 01/30/19 Unknown Active Medications - Current Medications Current Medications: Generic Name Dose Route Start Last Admin Trade Name Freq PRN Reason Stop Dose Admin Acetaminophen 650 mg 01/30/19 11:39 Tylenol PO Q6H PRN Non Cardiac Pain or Temp>100.5 Acetaminophen/Hydrocodone Bitart 1 each 01/30/19 11:39 [place] 5/325 PO Q4H PRN Pain, Moderate (4-6) Albuterol 2.5 mg 01/30/19 11:33 Proventil IH Q4HRT PRN Shortness Of Breath Amlodipine Besylate 10 mg 01/30/19 18:00 01/31/19 09:28 Norvasc PO 10 mg QDAY DEXTER Administration Aspirin 325 mg 01/31/19 12:00 01/31/19 13:44 Aspirin PO 325 mg QDAY DEXTER Administration Docusate Sodium 100 mg 01/30/19 22:00 01/31/19 23:15 Colace PO 100 mg BID DEXTER Administration Doxazosin Mesylate 2 mg 01/30/19 22:00 01/31/19 23:15 Cardura PO 2 mg HS DEXTER Administration Furosemide 80 mg 01/30/19 18:00 02/01/19 05:54 Lasix IV 80 mg 0600,1800 DEXTER Administration Ceftriaxone Sodium 2 gm in 100 mls @ 200 mls/hr 01/31/19 10:00 01/31/19 22:21 Rocephin/Ns 2 Gm/100 Ml IV 200 mls/hr Q24HR DEXTER Administration Protocol Azithromycin 500 mg/ Sodium 250 mls @ 250 mls/hr 01/31/19 10:00 01/31/19 20:47 Chloride IV 250 mls/hr Q24HR DEXTER Administration Heparin Sodium/Sodium Chloride 25,000 unit in 500 mls @ 20 mls/hr 01/30/19 18:00 01/31/19 23:13 Heparin/ 0.45% Nacl-25,000 Unit/500 Ml IV 1,250 units/hr TITRATE DEXTER 25 mls/hr Titration Protocol 1,000 UNITS/HR Isosorbide Mononitrate 30 mg 01/30/19 18:00 01/31/19 09:28 Imdur PO 30 mg QDAY D[facility]TER Administration Magnesium Hydroxide 30 ml 01/30/19 17:18 Milk Of Magnesia PO Q4H PRN Constipation Metolazone 5 mg 01/30/19 18:00 01/31/19 09:28 Zaroxolyn PO 5 mg QDAY DEXTER Administration Morphine Sulfate 2 mg 01/30/19 11:39 Morphine IV Q4H PRN Pain , Severe (7-10) Ondansetron HCl 4 mg 01/30/19 11:39 Zofran IV Q4H PRN Nausea And Vomiting Pantoprazole Sodium 40 mg 01/31/19 10:00 01/31/19 09:28 Protonix PO 40 mg QDAY DEXTER Administration Polyethylene Glycol 17 gm 01/30/19 11:39 Miralax 3350 PO QDAY PRN Constipation Tamsulosin HCl 0.4 mg 01/31/19 10:00 01/31/19 09:28 Flomax PO 0.4 mg QDAY DEXTER Administration
[2019-02-01] MEDS: ASPIRIN PO SCH (11:28)
[2019-02-01] MEDS: IMDUR PO SCH (11:28)
[2019-02-01] MEDS: NORVASC PO SCH (11:28)
[2019-02-01] MEDS: ZAROXOLYN PO SCH (11:28)
[2019-02-01] MEDS: PROTONIX PO SCH (11:28)
[2019-02-01] MEDS: FLOMAX PO SCH (11:29)
[2019-02-01] MEDS: COLACE PO SCH ×2 (11:29→22:28)
--- NOTE | 2019-02-01 11:46 | Consultation ---
History of Present Illness - Reason for Consult Consult date: 02/01/19 - History of Present Illness LAST SEEN BY DR. CANCINO IN [facility] OFFICE Patient is a 78 yo man with a history of hypertension, prostate cancer w/ bilateral hydronephrosis followed by Urology and CKD 4 with last Cr 3.0 in 2017 (he was in ARF at the time) who presents to [facility] ED with progressive worse, constant severe SOB for the last 2-3 days associated with leg swelling without aggravating or relieving factors, associated with nonproductive cough but no fevers or chills. History is very limited because he is on BIPAP and unable to complete sentences. He doesn't have O2 at home. He denies chest pains. nurse in room pt wants transfuse to [place] pt refuses heredia catheter placement (states he is voiding own his own) A/P prostate ca ---s/p seed in the remote past last seen by us----2017---needs psa await status of [place] transfer Past History Past Medical History: anemia, heart failure, hypertension, renal failure, other (Prostate cancer) Past Surgical History: Other (unable to obtain) Social history: other (unable to obtain) Medications and Allergies Allergies Allergy/AdvReac Type Severity Reaction Status Date / Time No Known Allergies Allergy Unverified 05/06/17 15:50 Home Medications Medication Instructions Recorded Confirmed Last Taken Type amLODIPine [Norvasc] 10 mg PO QDAY 05/06/17 01/30/19 05/06/17 History Bicalutamide [Casodex] 50 mg PO QDAY #30 tablet 05/10/17 01/30/19 Unknown Rx Bisacodyl [Dulcolax suppos] 10 mg NE QDAY PRN #30 supp.rect 05/10/17 01/30/19 Unknown Rx Docusate Sodium [Colace ORAL LIQ] 100 mg PO BID #60 oral.liqd 05/10/17 01/30/19 Unknown Rx Doxazosin [Cardura] 2 mg PO HS #60 tablet 05/10/17 01/30/19 Unknown Rx ISOSORBIDE MONOnitrate [Imdur ER] 30 mg PO QDAY #30 tablet 05/10/17 01/30/19 Unknown Rx Magnesium Hydroxide [Milk of 30 ml PO Q4H PRN #20 oral.liqd 05/10/17 01/30/19 Unknown Rx Magnesia] Megestrol [Megace] 20 mg PO DAILY PRN #30 tablet 05/10/17 01/30/19 Unknown Rx Tamsulosin [Flomax] 0.4 mg PO QDAY #30 capsule 05/10/17 01/30/19 Unknown Rx Active Meds: Active Medications Acetaminophen (Tylenol) 650 mg PO Q6H PRN PRN Reason: Non Cardiac Pain or Temp>100.5 Acetaminophen/Hydrocodone Bitart ([place] 5/325) 1 each PO Q4H PRN PRN Reason: Pain, Moderate (4-6) Albuterol (Proventil) 2.5 mg IH Q4HRT PRN PRN Reason: Shortness Of Breath Amlodipine Besylate (Norvasc) 10 mg PO QDAY [facility] Last Admin: 02/01/19 11:28 Dose: 10 mg Documented by: Aspirin (Aspirin) 325 mg PO QDAY [facility] Last Admin: 02/01/19 11:28 Dose: 325 mg Documented by: Docusate Sodium (Colace) 100 mg PO BID [facility] Last Admin: 02/01/19 11:29 Dose: 100 mg Documented by: Doxazosin Mesylate (Cardura) 2 mg PO HS [facility] Last Admin: 01/31/19 23:15 Dose: 2 mg Documented by: Furosemide (Lasix) 80 mg IV 0600,1800 [facility] Last Admin: 02/01/19 05:54 Dose: 80 mg Documented by: Ceftriaxone Sodium (Rocephin/Ns 2 Gm/100 Ml) 2 gm in 100 mls @ 200 mls/hr IV Q24HR [facility]; Protocol Last Admin: 01/31/19 22:21 Dose: 200 mls/hr Documented by: Azithromycin 500 mg/ Sodium (Chloride) 250 mls @ 250 mls/hr IV Q24HR [facility] Last Admin: 01/31/19 20:47 Dose: 250 mls/hr Documented by: Heparin Sodium/Sodium Chloride (Heparin/ 0.45% Nacl-25,000 Unit/500 Ml) 25,000 unit in 500 mls @ 20 mls/hr IV TITRATE [facility]; Protocol Last Titration: 01/31/19 23:13 Dose: 1,250 units/hr, 25 mls/hr Documented by: Isosorbide Mononitrate (Imdur) 30 mg PO QDAY [facility] Last Admin: 02/01/19 11:28 Dose: 30 mg Documented by: Magnesium Hydroxide (Milk Of Magnesia) 30 ml PO Q4H PRN PRN Reason: Constipation Metolazone (Zaroxolyn) 5 mg PO QDAY [facility] Last Admin: 02/01/19 11:28 Dose: 5 mg Documented by: Morphine Sulfate (Morphine) 2 mg IV Q4H PRN PRN Reason: Pain , Severe (7-10) Ondansetron HCl (Zofran) 4 mg IV Q4H PRN PRN Reason: Nausea And Vomiting Pantoprazole Sodium (Protonix) 40 mg PO QDAY [facility] Last Admin: 02/01/19 11:28 Dose: 40 mg Documented by: Polyethylene Glycol (Miralax 3350) 17 gm PO QDAY PRN PRN Reason: Constipation Tamsulosin HCl (Flomax) 0.4 mg PO QDAY [facility] Last Admin: 02/01/19 11:29 Dose: 0.4 mg Documented by: Exam - Constitutional Vitals: Temp Pulse Resp BP Pulse Ox 98.4 F 60 18 145/92 99 02/01/19 11:01 02/01/19 11:01 02/01/19 11:01 02/01/19 11:01 02/01/19 11:01 Results - Labs CBC & Chem 7: 02/01/19 06:59 02/01/19 06:59 Labs: Abnormal lab results 01/31/19 01/31/19 01/31/19 Range/Units 13:02 13:02 13:02 Hgb 9.2 L (11.8-15.2) gm/dl Hct 28.4 L (35.5-45.6) % MCV 75 L (84-94) fl MCH 25 L (28-32) pg RDW 15.9 H (13.2-15.2) % Heparin Anti-Xa Level 0.29 L (0.3-0.7) U.I./ml Potassium (3.6-5.0) mmol/L BUN 41 H (9-20) mg/dL Creatinine 2.5 H (0.8-1.5) mg/dL Glucose 143 H (75-100) mg/dL Calcium 8.1 L (8.4-10.2) mg/dL AST 68 H (5-40) units/L ALT 61 H (7-56) units/L Alkaline Phosphatase 184 H (35-129) units/L Total Protein (6.3-8.2) g/dL Albumin 2.6 L (3.9-5) g/dL 01/31/19 01/31/19 02/01/19 Range/Units 21:39 21:39 06:59 Hgb 9.0 L (11.8-15.2) gm/dl Hct 27.4 L (35.5-45.6) % MCV 75 L (84-94) fl MCH 24 L (28-32) pg RDW 15.8 H (13.2-15.2) % Heparin Anti-Xa Level 0.10 L (0.3-0.7) U.I./ml Potassium 3.5 L (3.6-5.0) mmol/L BUN 42 H (9-20) mg/dL Creatinine 2.6 H (0.8-1.5) mg/dL Glucose 127 H (75-100) mg/dL Calcium 7.8 L (8.4-10.2) mg/dL AST (5-40) units/L ALT (7-56) units/L Alkaline Phosphatase (35-129) units/L Total Protein (6.3-8.2) g/dL Albumin (3.9-5) g/dL 02/01/19 Range/Units 06:59 Hgb (11.8-15.2) gm/dl Hct (35.5-45.6) % MCV (84-94) fl MCH (28-32) pg RDW (13.2-15.2) % Heparin Anti-Xa Level (0.3-0.7) U.I./ml Potassium 3.2 L (3.6-5.0) mmol/L BUN 40 H (9-20) mg/dL Creatinine 2.6 H (0.8-1.5) mg/dL Glucose 120 H (75-100) mg/dL Calcium 7.8 L (8.4-10.2) mg/dL AST 48 H (5-40) units/L ALT (7-56) units/L Alkaline Phosphatase 146 H (35-129) units/L Total Protein 6.0 L (6.3-8.2) g/dL Albumin 2.5 L (3.9-5) g/dL
--- NOTE | 2019-02-01 13:05 | Progress Note ---
Assessment and Plan Imp: 1. Accelerated HTN 2. Dilated CMP 3. Acute systolic CHF 4. JOSELITO 5. Pulm HTN, probably due to #'s 1-3 6. Pericardial effusion 7. Hydronephrosis 8. Urinary retention with UTI Rec: 1. Diuresis/BP control, defer to renal 2. Needs cardiology eval. re: Echo findings 3. Wean O2 to off to keep sats 88% or greater; home O2 eval. prior to d/c 4. Try to mobilize 5. Patient willing to have heredia placed if deemed necessary by urology; cont. ABX and f/u urine culture 6. Gallbladder findings on US per primary 7. Pulmonary status has improved Plan of care reviewed w/ patient/family, they understand/agree Subjective Date of service: 02/01/19 Principal diagnosis: Acute respiratory failure Interval history: SOB improving with diuresis. Remains on NC. No chest pain. No new complaints. Denies abd pain, N/V. Active Medications Acetaminophen (Tylenol) 650 mg PO Q6H PRN PRN Reason: Non Cardiac Pain or Temp>100.5 Acetaminophen/Hydrocodone Bitart ([place] 5/325) 1 each PO Q4H PRN PRN Reason: Pain, Moderate (4-6) Albuterol (Proventil) 2.5 mg IH Q4HRT PRN PRN Reason: Shortness Of Breath Amlodipine Besylate (Norvasc) 10 mg PO QDAY PENDING SALE TO [facility] Last Admin: 02/01/19 11:28 Dose: 10 mg Documented by: Aspirin (Aspirin) 325 mg PO QDAY PENDING SALE TO [facility] Last Admin: 02/01/19 11:28 Dose: 325 mg Documented by: Docusate Sodium (Colace) 100 mg PO BID PENDING SALE TO [facility] Last Admin: 02/01/19 11:29 Dose: 100 mg Documented by: Doxazosin Mesylate (Cardura) 2 mg PO HS PENDING SALE TO [facility] Last Admin: 01/31/19 23:15 Dose: 2 mg Documented by: Furosemide (Lasix) 80 mg IV 0600,1800 PENDING SALE TO [facility] Last Admin: 02/01/19 05:54 Dose: 80 mg Documented by: Ceftriaxone Sodium (Rocephin/Ns 2 Gm/100 Ml) 2 gm in 100 mls @ 200 mls/hr IV Q24HR PENDING SALE TO [facility]; Protocol Last Admin: 01/31/19 22:21 Dose: 200 mls/hr Documented by: Azithromycin 500 mg/ Sodium (Chloride) 250 mls @ 250 mls/hr IV Q24HR PENDING SALE TO [facility] Last Admin: 01/31/19 20:47 Dose: 250 mls/hr Documented by: Heparin Sodium/Sodium Chloride (Heparin/ 0.45% Nacl-25,000 Unit/500 Ml) 25,000 unit in 500 mls @ 20 mls/hr IV TITRATE PENDING SALE TO [facility]; Protocol Last Titration: 01/31/19 23:13 Dose: 1,250 units/hr, 25 mls/hr Documented by: Isosorbide Mononitrate (Imdur) 30 mg PO QDAY PENDING SALE TO [facility] Last Admin: 02/01/19 11:28 Dose: 30 mg Documented by: Magnesium Hydroxide (Milk Of Magnesia) 30 ml PO Q4H PRN PRN Reason: Constipation Metolazone (Zaroxolyn) 5 mg PO QDAY PENDING SALE TO [facility] Last Admin: 02/01/19 11:28 Dose: 5 mg Documented by: Morphine Sulfate (Morphine) 2 mg IV Q4H PRN PRN Reason: Pain , Severe (7-10) Ondansetron HCl (Zofran) 4 mg IV Q4H PRN PRN Reason: Nausea And Vomiting Pantoprazole Sodium (Protonix) 40 mg PO QDAY PENDING SALE TO [facility] Last Admin: 02/01/19 11:28 Dose: 40 mg Documented by: Polyethylene Glycol (Miralax [id number]) 17 gm PO QDAY PRN PRN Reason: Constipation Tamsulosin HCl (Flomax) 0.4 mg PO QDAY PENDING SALE TO [facility] Last Admin: 02/01/19 11:29 Dose: 0.4 mg Documented by: Objective Vital Signs - 12hr 02/01/19 02/01/19 02/01/19 04:13 08:54 11:01 Temperature 98.0 F 98.6 F 98.4 F Pulse Rate 104 H 65 60 Pulse Rate [ From Monitor] Respiratory 18 18 18 Rate Blood Pressure 146/95 139/71 145/92 O2 Sat by Pulse 97 88 99 Oximetry 02/01/19 12:00 Temperature Pulse Rate Pulse Rate [ 65 From Monitor] Respiratory 18 Rate Blood Pressure O2 Sat by Pulse 88 Oximetry Constitutional: no acute distress, alert Eyes: non-icteric ENT: oropharynx moist Neck: supple Effort: normal Ascultation: Right: diminished breath sounds (base), Left: rales (base) Cardiovascular: regular rate and rhythm (no r/g; + ectopy) Gastrointestinal: normoactive bowel sounds, soft, non-tender, non-distended Integumentary: normal Extremities: no cyanosis, pink and warm, edema (1+ bilateral LE edema) Neurologic: normal mental status, non-focal exam, pupils equal and round, CN II- XII normal Psychiatric: mood appropriate, affect normal CBC and BMP: 02/01/19 06:59 02/01/19 06:59 ABG, PT/INR, D-dimer: ABG POC ABG pH 7.340 (7.35-7.45) L 01/30/19 11:31 POC ABG pCO2 46.6 (35-45) H 01/30/19 11:31 POC ABG pO2 114 (80-105) H 01/30/19 11:31 POC ABG HCO3 25.1 (22-26 mml/L) 01/30/19 11:31 POC ABG Total CO2 27 (23-27mmol/L) 01/30/19 11:31 POC ABG O2 Sat 98 01/30/19 11:31 PT/INR, D-dimer PT 15.4 Sec. (12.2-14.9) H 01/30/19 17:38 INR 1.15 (0.87-1.13) H 01/30/19 17:38 Abnormal lab findings: Abnormal Labs 01/30/19 01/30/19 01/30/19 08:33 08:57 08:57 WBC 23.5 H Hgb 10.6 L Hct 34.4 L MCV 77 L MCH 24 L MCHC 31 L RDW 16.6 H Seg Neuts % (Manual) 79.0 H Seg Neutrophils # Man 18.6 H Basophils # (Manual) 0.2 H PT 15.4 H INR 1.15 H Heparin Anti-Xa Level POC ABG pH POC ABG pCO2 POC ABG pO2 VBG pH Potassium Carbon Dioxide BUN Creatinine Glucose POC Glucose 200 H Lactic Acid Calcium AST ALT Alkaline Phosphatase Troponin T NT-Pro-B Natriuret Pep Total Protein Albumin HDL Cholesterol Urine WBC (Auto) Urine Creatinine 01/30/19 01/30/19 01/30/19 08:57 10:23 10:23 WBC Hgb Hct MCV MCH MCHC RDW Seg Neuts % (Manual) Seg Neutrophils # Man Basophils # (Manual) PT INR Heparin Anti-Xa Level POC ABG pH POC ABG pCO2 POC ABG pO2 VBG pH 7.240 L Potassium Carbon Dioxide 19 L BUN 38 H Creatinine 2.5 H Glucose 203 H POC Glucose Lactic Acid 3.00 H* Calcium 8.2 L AST 220 H ALT 118 H Alkaline Phosphatase 285 H Troponin T 0.044 H NT-Pro-B Natriuret Pep 79863 H Total Protein Albumin 3.2 L HDL Cholesterol 35 L Urine WBC (Auto) Urine Creatinine 01/30/19 01/30/19 01/30/19 10:38 11:28 11:31 WBC Hgb Hct MCV MCH MCHC RDW Seg Neuts % (Manual) Seg Neutrophils # Man Basophils # (Manual) PT INR Heparin Anti-Xa Level POC ABG pH 7.340 L POC ABG pCO2 46.6 H POC ABG pO2 114 H VBG pH Potassium Carbon Dioxide BUN Creatinine Glucose POC Glucose Lactic Acid Calcium AST ALT Alkaline Phosphatase Troponin T 0.084 H D NT-Pro-B Natriuret Pep Total Protein Albumin HDL Cholesterol Urine WBC (Auto) > 182.0 H Urine Creatinine 01/30/19 01/30/19 01/30/19 16:17 16:17 17:38 WBC Hgb Hct MCV MCH MCHC RDW Seg Neuts % (Manual) Seg Neutrophils # Man Basophils # (Manual) PT INR Heparin Anti-Xa Level POC ABG pH POC ABG pCO2 POC ABG pO2 VBG pH Potassium Carbon Dioxide BUN Creatinine Glucose POC Glucose Lactic Acid 2.10 H* Calcium AST ALT Alkaline Phosphatase Troponin T 0.124 H* D 0.185 H* D NT-Pro-B Natriuret Pep Total Protein Albumin HDL Cholesterol Urine WBC (Auto) Urine Creatinine 01/30/19 01/30/19 01/30/19 17:38 17:38 17:38 WBC Hgb 11.0 L Hct 34.3 L MCV MCH MCHC RDW Seg Neuts % (Manual) Seg Neutrophils # Man Basophils # (Manual) PT 15.4 H INR 1.15 H Heparin Anti-Xa Level POC ABG pH POC ABG pCO2 POC ABG pO2 VBG pH Potassium Carbon Dioxide BUN Creatinine Glucose POC Glucose Lactic Acid 2.70 H* Calcium AST ALT Alkaline Phosphatase Troponin T NT-Pro-B Natriuret Pep Total Protein Albumin HDL Cholesterol Urine WBC (Auto) Urine Creatinine 01/30/19 01/31/19 01/31/19 Unknown 00:27 13:02 WBC Hgb 9.2 L Hct 28.4 L MCV 75 L MCH 25 L MCHC RDW 15.9 H Seg Neuts % (Manual) Seg Neutrophils # Man Basophils # (Manual) PT INR Heparin Anti-Xa Level 0.14 L POC ABG pH POC ABG pCO2 POC ABG pO2 VBG pH Potassium Carbon Dioxide BUN Creatinine Glucose POC Glucose Lactic Acid Calcium AST ALT Alkaline Phosphatase Troponin T NT-Pro-B Natriuret Pep Total Protein Albumin HDL Cholesterol Urine WBC (Auto) Urine Creatinine 45.1 H 01/31/19 01/31/19 01/31/19 13:02 13:02 21:39 WBC Hgb Hct MCV MCH MCHC RDW Seg Neuts % (Manual) Seg Neutrophils # Man Basophils # (Manual) PT INR Heparin Anti-Xa Level 0.29 L POC ABG pH POC ABG pCO2 POC ABG pO2 VBG pH Potassium 3.5 L Carbon Dioxide BUN 41 H 42 H Creatinine 2.5 H 2.6 H Glucose 143 H 127 H POC Glucose Lactic Acid Calcium 8.1 L 7.8 L AST 68 H ALT 61 H Alkaline Phosphatase 184 H Troponin T NT-Pro-B Natriuret Pep Total Protein Albumin 2.6 L HDL Cholesterol Urine WBC (Auto) Urine Creatinine 01/31/19 02/01/19 02/01/19 21:39 06:59 06:59 WBC Hgb 9.0 L Hct 27.4 L MCV 75 L MCH 24 L MCHC RDW 15.8 H Seg Neuts % (Manual) Seg Neutrophils # Man Basophils # (Manual) PT INR Heparin Anti-Xa Level 0.10 L POC ABG pH POC ABG pCO2 POC ABG pO2 VBG pH Potassium 3.2 L Carbon Dioxide BUN 40 H Creatinine 2.6 H Glucose 120 H POC Glucose Lactic Acid Calcium 7.8 L AST 48 H ALT Alkaline Phosphatase 146 H Troponin T NT-Pro-B Natriuret Pep Total Protein 6.0 L Albumin 2.5 L HDL Cholesterol Urine WBC (Auto) Urine Creatinine Chest x-ray: report reviewed, image reviewed (suggestive of CHF)
[2019-02-01] MEDS: ROCEPHIN/NS 2 GM/100 ML 2 GM/100 ML BAG IV SCH (13:17)
--- NOTE | 2019-02-01 13:35 | Progress Note ---
Assessment and Plan Echo reviewed - EF 30-35%, LV mild to mod dilated, mild to mod LVH, abnormal diastolic function, LA severely dilated, mod MR, mod pulm HTN, moderate pericardial effusion. Pt denies any prior knowledge of HF or CMP diagnosis. Cont IV diuresis and zaroxolyn per nephrology. Will initiate BB in setting of CMP. No ACEI/ARB or aldactone at this time in setting of renal insufficiency. Will plan for ischemic evaluation (stress test) to r/o ischemic CMP once pt is able to lie flat - likely Friday. The patient has been seen in conjunction with Dr. Whiting who agrees with the assessment and plan of care. - Patient Problems (1) Acute HFrEF (heart failure with reduced ejection fraction) Current Visit: Yes Status: Acute (2) Cardiomyopathy Current Visit: Yes Status: Chronic (3) Acute respiratory failure Current Visit: Yes Status: Acute (4) Hypertensive crisis Current Visit: Yes Status: Acute (5) Acute on chronic renal failure Current Visit: Yes Status: Acute (6) UTI (urinary tract infection) Current Visit: Yes Status: Acute (7) Leukocytosis Current Visit: Yes Status: Acute (8) Pneumonia Current Visit: Yes Status: Suspected (9) History of prostate cancer Current Visit: Yes Status: Chronic (10) Elevated troponin Current Visit: Yes Status: Acute (11) Pericardial effusion Current Visit: Yes Status: Acute (12) Anemia Current Visit: Yes Status: Acute (13) Elevated LFTs Current Visit: Yes Status: Acute Subjective Date of service: 02/01/19 Principal diagnosis: Acute respiratory failure Interval history: pt sitting up at bedside, states SOB improving. Objective Last Vital Signs Temp 98.4 F 02/01/19 11:01 Pulse 65 02/01/19 12:00 Resp 18 02/01/19 12:00 BP 145/92 02/01/19 11:01 Pulse Ox 88 02/01/19 12:00 - Physical Examination General: No Apparent Distress Neck: Positive: neck supple, trachea midline, JVD/HJR Cardiac: Positive: Reg Rate and Rhythm, S1/S2 Lungs: Positive: Decreased Breath Sounds Neuro: Positive: Grossly Intact Abdomen: Positive: Soft. Negative: Tender Skin: Negative: Rash, Wound Musculoskeletal: No Pain Extremities: Present: +2 Edema (BLE) - Labs and Meds Cardiac Enzymes 01/31/19 02/01/19 Range/Units 13:02 06:59 AST 68 H 48 H (5-40) units/L CBC 02/01/19 Range/Units 06:59 WBC 5.7 (4.5-11.0) K/mm3 RBC 3.67 (3.65-5.03) M/mm3 Hgb 9.0 L (11.8-15.2) gm/dl Hct 27.4 L (35.5-45.6) % Plt Count 206 (140-440) K/mm3 Comprehensive Metabolic Panel 01/31/19 01/31/19 02/01/19 Range/Units 13:02 21:39 06:59 Sodium 140 142 138 (137-145) mmol/L Potassium 3.7 3.5 L 3.2 L (3.6-5.0) mmol/L Chloride 101.8 102.9 98.3 (98-107) mmol/L Carbon Dioxide 25 25 26 (22-30) mmol/L BUN 41 H 42 H 40 H (9-20) mg/dL Creatinine 2.5 H 2.6 H 2.6 H (0.8-1.5) mg/dL Glucose 143 H 127 H 120 H (75-100) mg/dL Calcium 8.1 L 7.8 L 7.8 L (8.4-10.2) mg/dL AST 68 H 48 H (5-40) units/L ALT 61 H 46 (7-56) units/L Alkaline Phosphatase 184 H 146 H (35-129) units/L Total Protein 6.3 6.0 L (6.3-8.2) g/dL Albumin 2.6 L 2.5 L (3.9-5) g/dL - Imaging and Cardiology Echo: report reviewed - Telemetry EKG Rhythm: Sinus Rhythm
[2019-02-01] MEDS ORDERED: K-DUR PO NR (14:00)
[2019-02-01] MEDS: ZITHROMAX 500 MG in NACL 0.9% 250ML 250 ML IV SCH (15:05)
[2019-02-01] MEDS: CARDURA PO SCH (22:28)
[2019-02-01] MEDS: COREG PO SCH (22:28)
[2019-02-02] MEDS: HEPARIN/ 0.45% NACL-25,000 UNIT/500 ML 25,000 UNIT/500 ML BAG IV SCH (01:39)
[2019-02-02] MEDS: LASIX IV SCH ×2 (06:24→18:43)
[2019-02-02 06:31] LABS: Hematocrit 27.5 % (35.5-45.6); Mean Corpuscular HGB Conc 33 % (32-34); Mean Corpuscular Volume 75 fl (84-94); Platelet Count 217 K/mm3 (140-440); Red Blood Count 3.67 M/mm3 (3.65-5.03); Red Cell Distribution Width 15.8 % (13.2-15.2)
[2019-02-02 06:49] LABS: Calcium 8.1 mg/dL (8.4-10.2)
--- NOTE | 2019-02-02 09:20 | XRay Report ---
AP CHEST: HISTORY: CHF Mild cardiomegaly, mild pulmonary venous congestion and trace bilateral pleural effusions are identified. No evidence for pneumonia or pneumothorax. IMPRESSION: Mild CHF.
[2019-02-02] MEDS: ROCEPHIN/NS 2 GM/100 ML 2 GM/100 ML BAG IV SCH (10:44)
[2019-02-02] MEDS: COLACE PO SCH ×2 (10:45→21:18)
[2019-02-02] MEDS: FLOMAX PO SCH (10:45)
[2019-02-02] MEDS: ASPIRIN PO SCH (10:45)
[2019-02-02] MEDS: IMDUR PO SCH (10:45)
[2019-02-02] MEDS: ZAROXOLYN PO SCH (10:45)
[2019-02-02] MEDS: PROTONIX PO SCH (10:45)
[2019-02-02] MEDS: NORVASC PO SCH (10:46)
[2019-02-02] MEDS: COREG PO SCH ×2 (10:46→21:18)
--- NOTE | 2019-02-02 11:17 | Progress Note ---
Assessment and Plan Cont volume optimization per nephrology. Cont BB. No ACEI/ARB or aldactone at this time in setting of renal insufficiency. Will plan for stress test in AM. NPO after MN. The patient has been seen in conjunction with Dr. Whiting who agrees with the assessment and plan of care. - Patient Problems (1) Acute HFrEF (heart failure with reduced ejection fraction) Current Visit: Yes Status: Acute (2) Cardiomyopathy Current Visit: Yes Status: Chronic (3) Acute respiratory failure Current Visit: Yes Status: Acute (4) Hypertensive crisis Current Visit: Yes Status: Acute (5) Acute on chronic renal failure Current Visit: Yes Status: Acute (6) UTI (urinary tract infection) Current Visit: Yes Status: Acute (7) Leukocytosis Current Visit: Yes Status: Acute (8) Pneumonia Current Visit: Yes Status: Suspected (9) History of prostate cancer Current Visit: Yes Status: Chronic (10) Elevated troponin Current Visit: Yes Status: Acute (11) Pericardial effusion Current Visit: Yes Status: Acute (12) Anemia Current Visit: Yes Status: Acute (13) Elevated LFTs Current Visit: Yes Status: Acute Subjective Date of service: 02/02/19 Principal diagnosis: Acute respiratory failure Interval history: pt lying flat comfortably in bed, states SOB improving. Objective Last Vital Signs Temp 97.6 F 02/02/19 07:59 Pulse 71 02/02/19 10:46 Resp 16 02/02/19 07:59 BP 142/65 02/02/19 10:46 Pulse Ox 98 02/02/19 07:59 - Physical Examination General: No Apparent Distress Neck: Positive: neck supple, trachea midline, JVD/HJR Cardiac: Positive: Reg Rate and Rhythm, S1/S2 Lungs: Positive: Decreased Breath Sounds Neuro: Positive: Grossly Intact Abdomen: Positive: Soft. Negative: Tender Skin: Negative: Rash, Wound Musculoskeletal: No Pain Extremities: Present: +2 Edema (BLE) - Labs and Meds Cardiac Enzymes 02/02/19 Range/Units 04:54 AST 36 (5-40) units/L CBC 02/02/19 Range/Units 04:54 WBC 4.7 (4.5-11.0) K/mm3 RBC 3.67 (3.65-5.03) M/mm3 Hgb 9.0 L (11.8-15.2) gm/dl Hct 27.5 L (35.5-45.6) % Plt Count 217 (140-440) K/mm3 Comprehensive Metabolic Panel 02/02/19 Range/Units 04:54 Sodium 141 (137-145) mmol/L Potassium 3.6 (3.6-5.0) mmol/L Chloride 99.3 (98-107) mmol/L Carbon Dioxide 29 (22-30) mmol/L BUN 43 H (9-20) mg/dL Creatinine 2.8 H (0.8-1.5) mg/dL Glucose 89 (75-100) mg/dL Calcium 8.1 L (8.4-10.2) mg/dL AST 36 (5-40) units/L ALT 40 (7-56) units/L Alkaline Phosphatase 139 H (35-129) units/L Total Protein 6.8 (6.3-8.2) g/dL Albumin 3.0 L (3.9-5) g/dL - Imaging and Cardiology Echo: report reviewed ( EF 30-35%, LV mild to mod dilated, mild to mod LVH, abnormal diastolic function, LA severely dilated, mod MR, mod pulm HTN, moderate pericardial effusion. )
[2019-02-02] MEDS: ZITHROMAX 500 MG in NACL 0.9% 250ML 250 ML IV SCH (12:25)
--- NOTE | 2019-02-02 15:04 | Progress Note ---
Assessment and Plan 1. Acute kidney injury: JOSELITO superimposed on CKD stage 4 in the setting of CHF exacerbation. Suspect Cardio-renal syndrome. Renal US results noted. Monitor renal function. Renal prognosis is guarded to poor. Avoid nephrotoxic agents. Meds dosage based on GFR. 2. FEN: Volume overload, remain volume overloaded, continue IV Lasix and Metolazone. Patient still refusing Isolated UF / hemodialysis. Metabolic acidosis, improved. 3. CHF exacerbation. 4. Respiratory failure: Followed by Pulmonary. Was on BIPAP. 5. Hypertensive urgency: BP is better. 6. H/o prostate cancer with obstruction: Patient refused Mcmillan. Seen by Urologist. Monitor. 7. UTI: IV Abx. 8. Anemia. 9. Medical non-compliance: Compliance encouraged. Patient has been refusing multiple interventions, patient aware of the risks. Subjective Date of service: 02/02/19 Principal diagnosis: Acute respiratory failure Interval history: Patient was seen and examined at the bedside. No new complaint. Objective - Vital Signs Vital signs: Vital Signs - 12hr 02/02/19 02/02/19 02/02/19 04:10 04:11 07:59 Temperature 98.3 F 97.6 F Pulse Rate 87 75 59 L Respiratory 17 16 Rate Blood Pressure 129/91 151/71 O2 Sat by Pulse 98 98 98 Oximetry 02/02/19 02/02/19 02/02/19 08:08 10:45 10:46 Temperature Pulse Rate 63 71 71 Respiratory Rate Blood Pressure 142/65 O2 Sat by Pulse Oximetry 02/02/19 12:00 Temperature Pulse Rate Respiratory 24 Rate Blood Pressure O2 Sat by Pulse 97 Oximetry - General Appearance General appearance: well-developed, appears stated age, other (some tachypnea noted) EENT: ATNC, PERRL, hearing intact, vision intact Neck: JVD, supple Respiratory: Present: Rales Cardiology: S1S2, no murmurs Gastrointestinal: normoactive bowel sounds, no tenderness, no distended Integumentary: no rash Neurologic: no focal deficit, no asterixis, alert and oriented x3 Musculoskeletal: other (2 to 3+ edema of both LEs noted) - Lab 02/02/19 04:54 02/02/19 04:54 Most recent lab results Calcium 8.1 mg/dL (8.4-10.2) L 02/02/19 04:54 Phosphorus 3.20 mg/dL (2.5-4.5) 02/01/19 06:59 Magnesium 1.80 mg/dL (1.7-2.3) 01/31/19 13:02 45.1 mg/dL (0.1-20.0) H 01/30/19 Unknown 64 mmol/L 01/30/19 Unknown Medications & Allergies - Medications Allergies/Adverse Reactions: Allergies No Known Allergies Allergy (Unverified 05/06/17 15:50) Home Medications: Home Medications Medication Instructions Recorded Confirmed Last Taken Type amLODIPine [Norvasc] 10 mg PO QDAY 05/06/17 01/30/19 05/06/17 History Bicalutamide [Casodex] 50 mg PO QDAY #30 tablet 05/10/17 01/30/19 Unknown Rx Bisacodyl [Dulcolax suppos] 10 mg TN QDAY PRN #30 supp.rect 05/10/17 01/30/19 Unknown Rx Docusate Sodium [Colace ORAL LIQ] 100 mg PO BID #60 oral.liqd 05/10/17 01/30/19 Unknown Rx Doxazosin [Cardura] 2 mg PO HS #60 tablet 05/10/17 01/30/19 Unknown Rx ISOSORBIDE MONOnitrate [Imdur ER] 30 mg PO QDAY #30 tablet 05/10/17 01/30/19 Unknown Rx Magnesium Hydroxide [Milk of 30 ml PO Q4H PRN #20 oral.liqd 05/10/17 01/30/19 Unknown Rx Magnesia] Megestrol [Megace] 20 mg PO DAILY PRN #30 tablet 05/10/17 01/30/19 Unknown Rx Tamsulosin [Flomax] 0.4 mg PO QDAY #30 capsule 05/10/17 01/30/19 Unknown Rx Active Medications: Generic Name Dose Route Start Last Admin Trade Name Freq PRN Reason Stop Dose Admin Acetaminophen 650 mg 01/30/19 11:39 Tylenol PO Q6H PRN Non Cardiac Pain or Temp>100.5 Acetaminophen/Hydrocodone Bitart 1 each 01/30/19 11:39 Strang 5/325 PO Q4H PRN Pain, Moderate (4-6) Albuterol 2.5 mg 01/30/19 11:33 Proventil IH Q4HRT PRN Shortness Of Breath Amlodipine Besylate 10 mg 01/30/19 18:00 02/02/19 10:46 Norvasc PO 10 mg QDAY [facility] Administration Aspirin 325 mg 01/31/19 12:00 02/02/19 10:45 Aspirin PO 325 mg QDAY DEXTER Administration Carvedilol 3.125 mg 02/01/19 22:00 02/02/19 10:46 Coreg PO 3.125 mg BID DEXTER Administration Docusate Sodium 100 mg 01/30/19 22:00 02/02/19 10:45 Colace PO 100 mg BID DEXTER Administration Doxazosin Mesylate 2 mg 01/30/19 22:00 02/01/19 22:28 Cardura PO 2 mg HS DEXTER Administration Furosemide 80 mg 01/30/19 18:00 02/02/19 06:24 Lasix IV 80 mg 0600,1800 DEXTER Administration Ceftriaxone Sodium 2 gm in 100 mls @ 200 mls/hr 01/31/19 10:00 02/02/19 10:44 Rocephin/Ns 2 Gm/100 Ml IV 200 mls/hr Q24HR [facility] Administration Protocol Azithromycin 500 mg/ Sodium 250 mls @ 250 mls/hr 01/31/19 10:00 02/02/19 12:25 Chloride IV 250 mls/hr Q24HR D[facility]TER Administration Isosorbide Mononitrate 30 mg 01/30/19 18:00 02/02/19 10:45 Imdur PO 30 mg QDAY D[facility] Administration Magnesium Hydroxide 30 ml 01/30/19 17:18 Milk Of Magnesia PO Q4H PRN Constipation Metolazone 5 mg 01/30/19 18:00 02/02/19 10:45 Zaroxolyn PO 5 mg QDAY [facility] Administration Morphine Sulfate 2 mg 01/30/19 11:39 Morphine IV Q4H PRN Pain , Severe (7-10) Ondansetron HCl 4 mg 01/30/19 11:39 Zofran IV Q4H PRN Nausea And Vomiting Pantoprazole Sodium 40 mg 01/31/19 10:00 02/02/19 10:45 Protonix PO 40 mg QDAY DEXTER Administration Polyethylene Glycol 17 gm 01/30/19 11:39 Miralax 3350 PO QDAY PRN Constipation Tamsulosin HCl 0.4 mg 01/31/19 10:00 02/02/19 10:45 Flomax PO 0.4 mg QDAY DEXTER Administration
[2019-02-02] MEDS ORDERED: K-DUR PO ONE (16:00)
--- NOTE | 2019-02-02 16:07 | Progress Note ---
Assessment and Plan Imp: 1. Accelerated HTN 2. Dilated CMP 3. Acute systolic CHF 4. JOSELITO 5. Pulm HTN, probably due to #'s 1-3 6. Pericardial effusion 7. Hydronephrosis 8. Urinary retention with UTI Rec: 1. Diuresis/BP control, defer to renal 2. F/u cardiology recs 3. Wean O2 to off to keep sats 88% or greater; home O2 eval. prior to d/c 4. Try to mobilize 5. Gallbladder findings on US per primary 6. No need for ABX pulmonary-andrews; however, he is growing Citrobacter resistant to Rocephin; consider changing ABX or ID consult (patient/ no keen on contin uing ABX), will defer to primary 7. Pulmonary status has improving Plan of care reviewed w/ patient/family, they understand/agree Subjective Date of service: 02/02/19 Principal diagnosis: Acute respiratory failure Interval history: SOB improving with diuresis. Remains on NC. No chest pain. No new complaints. Denies abd pain, N/V. Active Medications Acetaminophen (Tylenol) 650 mg PO Q6H PRN PRN Reason: Non Cardiac Pain or Temp>100.5 Acetaminophen/Hydrocodone Bitart ([place] 5/325) 1 each PO Q4H PRN PRN Reason: Pain, Moderate (4-6) Albuterol (Proventil) 2.5 mg IH Q4HRT PRN PRN Reason: Shortness Of Breath Amlodipine Besylate (Norvasc) 10 mg PO QDAY [facility] Last Admin: 02/02/19 10:46 Dose: 10 mg Documented by: Aspirin (Aspirin) 325 mg PO QDAY [facility] Last Admin: 02/02/19 10:45 Dose: 325 mg Documented by: Carvedilol (Coreg) 3.125 mg PO BID [facility] Last Admin: 02/02/19 10:46 Dose: 3.125 mg Documented by: Docusate Sodium (Colace) 100 mg PO BID [facility] Last Admin: 02/02/19 10:45 Dose: 100 mg Documented by: Doxazosin Mesylate (Cardura) 2 mg PO HS [facility] Last Admin: 02/01/19 22:28 Dose: 2 mg Documented by: Furosemide (Lasix) 80 mg IV 0600,1800 [facility] Last Admin: 02/02/19 06:24 Dose: 80 mg Documented by: Ceftriaxone Sodium (Rocephin/Ns 2 Gm/100 Ml) 2 gm in 100 mls @ 200 mls/hr IV Q24HR [facility]; Protocol Last Admin: 02/02/19 10:44 Dose: 200 mls/hr Documented by: Azithromycin 500 mg/ Sodium (Chloride) 250 mls @ 250 mls/hr IV Q24HR [facility] Last Admin: 02/02/19 12:25 Dose: 250 mls/hr Documented by: Isosorbide Mononitrate (Imdur) 30 mg PO QDAY [facility] Last Admin: 02/02/19 10:45 Dose: 30 mg Documented by: Magnesium Hydroxide (Milk Of Magnesia) 30 ml PO Q4H PRN PRN Reason: Constipation Metolazone (Zaroxolyn) 5 mg PO QDAY [facility] Last Admin: 02/02/19 10:45 Dose: 5 mg Documented by: Morphine Sulfate (Morphine) 2 mg IV Q4H PRN PRN Reason: Pain , Severe (7-10) Ondansetron HCl (Zofran) 4 mg IV Q4H PRN PRN Reason: Nausea And Vomiting Pantoprazole Sodium (Protonix) 40 mg PO QDAY [facility] Last Admin: 02/02/19 10:45 Dose: 40 mg Documented by: Polyethylene Glycol (Miralax [id number]) 17 gm PO QDAY PRN PRN Reason: Constipation Tamsulosin HCl (Flomax) 0.4 mg PO QDAY [facility] Last Admin: 02/02/19 10:45 Dose: 0.4 mg Documented by: Objective Vital Signs - 12hr 02/02/19 02/02/19 02/02/19 04:10 04:11 07:59 Temperature 98.3 F 97.6 F Pulse Rate 87 75 59 L Respiratory 17 16 Rate Blood Pressure 129/91 151/71 O2 Sat by Pulse 98 98 98 Oximetry 02/02/19 02/02/19 02/02/19 08:08 10:45 10:46 Temperature Pulse Rate 63 71 71 Respiratory Rate Blood Pressure 142/65 O2 Sat by Pulse Oximetry 02/02/19 12:00 Temperature Pulse Rate Respiratory 24 Rate Blood Pressure O2 Sat by Pulse 97 Oximetry Constitutional: no acute distress, alert Eyes: non-icteric ENT: oropharynx moist Neck: supple Effort: normal Ascultation: Bilateral: clear Cardiovascular: regular rate and rhythm (no r/g; + ectopy) Gastrointestinal: normoactive bowel sounds, soft, non-tender, non-distended Integumentary: normal Extremities: no cyanosis, pink and warm, edema (1+ bilateral LE edema) Neurologic: normal mental status, non-focal exam, pupils equal and round, CN II- XII normal Psychiatric: mood appropriate, affect normal CBC and BMP: 02/02/19 04:54 02/02/19 04:54 ABG, PT/INR, D-dimer: ABG POC ABG pH 7.340 (7.35-7.45) L 01/30/19 11:31 POC ABG pCO2 46.6 (35-45) H 01/30/19 11:31 POC ABG pO2 114 (80-105) H 01/30/19 11:31 POC ABG HCO3 25.1 (22-26 mml/L) 01/30/19 11:31 POC ABG Total CO2 27 (23-27mmol/L) 01/30/19 11:31 POC ABG O2 Sat 98 01/30/19 11:31 PT/INR, D-dimer PT 15.4 Sec. (12.2-14.9) H 01/30/19 17:38 INR 1.15 (0.87-1.13) H 01/30/19 17:38 Abnormal lab findings: Abnormal Labs 01/30/19 01/30/19 01/30/19 08:33 08:57 08:57 WBC 23.5 H Hgb 10.6 L Hct 34.4 L MCV 77 L MCH 24 L MCHC 31 L RDW 16.6 H Seg Neuts % (Manual) 79.0 H Seg Neutrophils # Man 18.6 H Basophils # (Manual) 0.2 H PT 15.4 H INR 1.15 H Heparin Anti-Xa Level POC ABG pH POC ABG pCO2 POC ABG pO2 VBG pH Potassium Carbon Dioxide BUN Creatinine Glucose POC Glucose 200 H Lactic Acid Calcium AST ALT Alkaline Phosphatase Troponin T NT-Pro-B Natriuret Pep Total Protein Albumin HDL Cholesterol Urine WBC (Auto) Urine Creatinine 01/30/19 01/30/19 01/30/19 08:57 10:23 10:23 WBC Hgb Hct MCV MCH MCHC RDW Seg Neuts % (Manual) Seg Neutrophils # Man Basophils # (Manual) PT INR Heparin Anti-Xa Level POC ABG pH POC ABG pCO2 POC ABG pO2 VBG pH 7.240 L Potassium Carbon Dioxide 19 L BUN 38 H Creatinine 2.5 H Glucose 203 H POC Glucose Lactic Acid 3.00 H* Calcium 8.2 L AST 220 H ALT 118 H Alkaline Phosphatase 285 H Troponin T 0.044 H NT-Pro-B Natriuret Pep 54079 H Total Protein Albumin 3.2 L HDL Cholesterol 35 L Urine WBC (Auto) Urine Creatinine 01/30/19 01/30/19 01/30/19 10:38 11:28 11:31 WBC Hgb Hct MCV MCH MCHC RDW Seg Neuts % (Manual) Seg Neutrophils # Man Basophils # (Manual) PT INR Heparin Anti-Xa Level POC ABG pH 7.340 L POC ABG pCO2 46.6 H POC ABG pO2 114 H VBG pH Potassium Carbon Dioxide BUN Creatinine Glucose POC Glucose Lactic Acid Calcium AST ALT Alkaline Phosphatase Troponin T 0.084 H D NT-Pro-B Natriuret Pep Total Protein Albumin HDL Cholesterol Urine WBC (Auto) > 182.0 H Urine Creatinine 01/30/19 01/30/19 01/30/19 16:17 16:17 17:38 WBC Hgb Hct MCV MCH MCHC RDW Seg Neuts % (Manual) Seg Neutrophils # Man Basophils # (Manual) PT INR Heparin Anti-Xa Level POC ABG pH POC ABG pCO2 POC ABG pO2 VBG pH Potassium Carbon Dioxide BUN Creatinine Glucose POC Glucose Lactic Acid 2.10 H* Calcium AST ALT Alkaline Phosphatase Troponin T 0.124 H* D 0.185 H* D NT-Pro-B Natriuret Pep Total Protein Albumin HDL Cholesterol Urine WBC (Auto) Urine Creatinine 01/30/19 01/30/19 01/30/19 17:38 17:38 17:38 WBC Hgb 11.0 L Hct 34.3 L MCV MCH MCHC RDW Seg Neuts % (Manual) Seg Neutrophils # Man Basophils # (Manual) PT 15.4 H INR 1.15 H Heparin Anti-Xa Level POC ABG pH POC ABG pCO2 POC ABG pO2 VBG pH Potassium Carbon Dioxide BUN Creatinine Glucose POC Glucose Lactic Acid 2.70 H* Calcium AST ALT Alkaline Phosphatase Troponin T NT-Pro-B Natriuret Pep Total Protein Albumin HDL Cholesterol Urine WBC (Auto) Urine Creatinine 05/08/1001/31/19 01/31/19 Unknown 00:27 13:02 WBC Hgb 9.2 L Hct 28.4 L MCV 75 L MCH 25 L MCHC RDW 15.9 H Seg Neuts % (Manual) Seg Neutrophils # Man Basophils # (Manual) PT INR Heparin Anti-Xa Level 0.14 L POC ABG pH POC ABG pCO2 POC ABG pO2 VBG pH Potassium Carbon Dioxide BUN Creatinine Glucose POC Glucose Lactic Acid Calcium AST ALT Alkaline Phosphatase Troponin T NT-Pro-B Natriuret Pep Total Protein Albumin HDL Cholesterol Urine WBC (Auto) Urine Creatinine 45.1 H 01/31/19 01/31/19 01/31/19 13:02 13:02 21:39 WBC Hgb Hct MCV MCH MCHC RDW Seg Neuts % (Manual) Seg Neutrophils # Man Basophils # (Manual) PT INR Heparin Anti-Xa Level 0.29 L POC ABG pH POC ABG pCO2 POC ABG pO2 VBG pH Potassium 3.5 L Carbon Dioxide BUN 41 H 42 H Creatinine 2.5 H 2.6 H Glucose 143 H 127 H POC Glucose Lactic Acid Calcium 8.1 L 7.8 L AST 68 H ALT 61 H Alkaline Phosphatase 184 H Troponin T NT-Pro-B Natriuret Pep Total Protein Albumin 2.6 L HDL Cholesterol Urine WBC (Auto) Urine Creatinine 01/31/19 02/01/19 02/01/19 21:39 06:59 06:59 WBC Hgb 9.0 L Hct 27.4 L MCV 75 L MCH 24 L MCHC RDW 15.8 H Seg Neuts % (Manual) Seg Neutrophils # Man Basophils # (Manual) PT INR Heparin Anti-Xa Level 0.10 L POC ABG pH POC ABG pCO2 POC ABG pO2 VBG pH Potassium 3.2 L Carbon Dioxide BUN 40 H Creatinine 2.6 H Glucose 120 H POC Glucose Lactic Acid Calcium 7.8 L AST 48 H ALT Alkaline Phosphatase 146 H Troponin T NT-Pro-B Natriuret Pep Total Protein 6.0 L Albumin 2.5 L HDL Cholesterol Urine WBC (Auto) Urine Creatinine 02/01/19 02/01/19 02/02/19 12:54 23:02 04:54 WBC Hgb 9.0 L Hct 27.5 L MCV 75 L MCH 25 L MCHC RDW 15.8 H Seg Neuts % (Manual) Seg Neutrophils # Man Basophils # (Manual) PT INR Heparin Anti-Xa Level 0.29 L 0.29 L POC ABG pH POC ABG pCO2 POC ABG pO2 VBG pH Potassium Carbon Dioxide BUN Creatinine Glucose POC Glucose Lactic Acid Calcium AST ALT Alkaline Phosphatase Troponin T NT-Pro-B Natriuret Pep Total Protein Albumin HDL Cholesterol Urine WBC (Auto) Urine Creatinine 02/02/19 04:54 WBC Hgb Hct MCV MCH MCHC RDW Seg Neuts % (Manual) Seg Neutrophils # Man Basophils # (Manual) PT INR Heparin Anti-Xa Level POC ABG pH POC ABG pCO2 POC ABG pO2 VBG pH Potassium Carbon Dioxide BUN 43 H Creatinine 2.8 H Glucose POC Glucose Lactic Acid Calcium 8.1 L AST ALT Alkaline Phosphatase 139 H Troponin T NT-Pro-B Natriuret Pep Total Protein Albumin 3.0 L HDL Cholesterol Urine WBC (Auto) Urine Creatinine Chest x-ray: report reviewed, image reviewed (improving CHF; tiny effusions bilaterally)
--- NOTE | 2019-02-02 16:15 | Progress Note ---
Assessment and Plan Acute on chronic systolic heart failure: - treat with iv lasix bid, consulted Cardiology, 30-35% Ef on ECHO, Acute hypoxic respiratory failure: - likely from CHF - consulted Pulm, off BIPAP, cont O2 on nasal canula - will assess for home O2 Suspected Sepsis with bilateral pneumonia, WBC 23.5: - negative blood cultures, treat with ABX and nebs ARF/CKD stage 4 due to tubular stasis, - due to urinary retention and treat the heart failure, consulted Nephrology - renal function stable Transaminitis: get U/s, get hepatitis panel==>?gallbladder inflammed, Acute on chronic AOCD: monitor h/h closely H/o prostate cancer and urinary retention/bilateral hydronephrosis: - patient refuses heredia, monitor Urine outpt and renal function Elevated troponin: consulted Cardiology==>started iv heparin drip on 01/30/19, stop today, plan for stress test tomorrow DVT ppx sq heparin Disposition: Patient requesting for transfer to [place] which is now pending, Possible d/c to home with HH if renal function stable following stress test t omorrow. Brief History: Patient is a 78 yo man with a history of hypertension, prostate cancer w/ bilateral hydronephrosis followed by Dr. Guzman, CHF and CKD 4 with last Cr 3.0 in 2017 (he was in ARF at the time) who presents to [facility] with SOB. His pulse ox was 66%. WBC 23.5, hemoglobin 10.6 w/ MCV 77, nl plt, CO2 19, bun 38, Creatinine 2.5, BG 203, AST 220, ALT 118, nl bilirubin, Alk phos 285, troponin 0.044, proBNP 18,064, pCXR Impression: Cardiomegaly and patchy bilateral perihilar opacities, left greater than right, findings may represent CHF with pulmonary edema. 2D ECHO conclusions left ventricular size is mild to moderate dilated, mild to moderated concentric LVH, severe global hypokinesis of the left ventricle is observed, estimated EF is 30-35%, abnormal left vnetriculare dysfucntion, left atrium is severely dilated, mild AR, moderate MR, evidence of moderate pulmonary hypertension, moderate pericardial effusion. Did not order HIDA scan because he is having trouble laying down due to the CHF Hospitalist Physical Gen: thin frail, ill appearing, mild increase accessory muscles, barrel chest, Awake, Alert, Orientated HEENT: NCAT, EOMI, PERRL, OP Clear Neck: supple, no adenopathy, no thyromegaly, no JVD CVS/Heart: Regular tachycardia, normal S1S2, pulses present bilaterally Chest/Lungs: bibasilar crackles, diminished bs bilateral, coarse bs bilateral but worse on the left, Symmetrical chest expansion, good air entry bilaterally GI/Abdomen: soft, NTND, protuding soft umbilicus, good bowel sounds, no guarding or rebound /Bladder: no suprapubic tenderness, no CVA or paraspinal tenderness Extermity/Skin: lymphedema with chronic venous stasis, bilateral leg edema MSK: FROM x 4 Neuro: CN 2-12 grossly intact, no new focal deficits Psych: calm Subjective Date of service: 02/02/19 Principal diagnosis: Acute respiratory failure Interval history: Patient seen and examined. Medical records and medication list reviewed. No acute event overnight noted by the RN. Patient denies any chest pain but complains of difficulty breathing with exertion. Patient is tolerating diet. Still refusing Heredia catheter and dialysis if needed Discussed plan of care at bedside with patient and with his daughter by phone . Plan for stress test tomorrow Objective - Constitutional Vitals: Vital Signs - 12hr 02/02/19 02/02/19 02/02/19 07:59 08:08 10:45 Temperature 97.6 F Pulse Rate 59 L 63 71 Respiratory 16 Rate Blood Pressure 151/71 O2 Sat by Pulse 98 Oximetry 02/02/19 02/02/19 10:46 12:00 Temperature Pulse Rate 71 Respiratory 24 Rate Blood Pressure 142/65 O2 Sat by Pulse 97 Oximetry - Labs CBC & Chem 7: 02/03/19 05:54 02/03/19 05:54 Labs: Abnormal lab results 02/01/19 02/02/19 02/02/19 Range/Units 23:02 04:54 04:54 Hgb 9.0 L (11.8-15.2) gm/dl Hct 27.5 L (35.5-45.6) % MCV 75 L (84-94) fl MCH 25 L (28-32) pg RDW 15.8 H (13.2-15.2) % Heparin Anti-Xa Level 0.29 L (0.3-0.7) U.I./ml BUN 43 H (9-20) mg/dL Creatinine 2.8 H (0.8-1.5) mg/dL Calcium 8.1 L (8.4-10.2) mg/dL Alkaline Phosphatase 139 H (35-129) units/L Albumin 3.0 L (3.9-5) g/dL
[2019-02-02] MEDS: LEVAQUIN PO SCH (17:42)
[2019-02-02] MEDS: CARDURA PO SCH (21:18)
[2019-02-03] MEDS: LASIX IV SCH ×2 (05:15→18:08)
[2019-02-03 06:18] LABS: Hematocrit 29.9 % (35.5-45.6); Hemoglobin 9.7 gm/dl (11.8-15.2)
[2019-02-03 06:42] LABS: Calcium 8.4 mg/dL (8.4-10.2)
[2019-02-03] MEDS ORDERED: LEXISCAN IV ONE ×2 (08:14→08:17)
--- NOTE | 2019-02-03 08:32 | Progress Note ---
Assessment and Plan 1. Acute kidney injury: JOSELITO superimposed on CKD stage 4 in the setting of CHF exacerbation. Suspect Cardio-renal syndrome. Renal US results noted. Gradual increase in BUN and creatinine is likely from diuresis. Monitor renal function. Renal prognosis is guarded to poor. Avoid nephrotoxic agents. Meds dosage based on GFR. 2. FEN: Volume overload, remain volume overloaded, continue IV Lasix and Metolazone. Patient still refusing Isolated UF / hemodialysis. Metabolic acidosis, improved. 3. CHF exacerbation. 4. Respiratory failure: Followed by Pulmonary. Was on BIPAP. 5. Hypertensive urgency: BP is better. 6. H/o prostate cancer with obstruction: Patient refused [place]. Seen by Urologist. Monitor. 7. UTI: IV Abx. 8. Anemia. 9. Medical non-compliance: Compliance encouraged. Patient has been refusing multiple interventions, patient aware of the risks. Subjective Date of service: 02/03/19 Principal diagnosis: Acute respiratory failure Interval history: Patient was seen and examined at the bedside. No new complaint. Objective - Vital Signs Vital signs: Vital Signs - 12hr 02/02/19 02/03/19 02/03/19 23:55 03:00 04:48 Temperature 98.2 F 98.2 F Pulse Rate 67 64 84 Respiratory 20 16 Rate Blood Pressure 142/81 146/91 O2 Sat by Pulse 95 96 Oximetry - General Appearance General appearance: well-developed, appears stated age, other (tachypneic) EENT: ATNC, PERRL, mucous membranes moist, hearing intact Neck: supple Respiratory: Present: Rales Cardiology: S1S2, no murmurs Gastrointestinal: normoactive bowel sounds, no tenderness Integumentary: no rash, warm and dry Neurologic: no focal deficit, no asterixis, alert and oriented x3 Musculoskeletal: other (3+ edema of both LEs noted) - Lab 02/03/19 05:54 02/03/19 05:54 Most recent lab results Calcium 8.4 mg/dL (8.4-10.2) 02/03/19 05:54 Phosphorus 3.20 mg/dL (2.5-4.5) 02/01/19 06:59 Magnesium 1.80 mg/dL (1.7-2.3) 01/31/19 13:02 45.1 mg/dL (0.1-20.0) H 01/30/19 Unknown 64 mmol/L 01/30/19 Unknown Medications & Allergies - Medications Allergies/Adverse Reactions: Allergies No Known Allergies Allergy (Unverified 05/06/17 15:50) Home Medications: Home Medications Medication Instructions Recorded Confirmed Last Taken Type amLODIPine [Norvasc] 10 mg PO QDAY 05/06/17 01/30/19 05/06/17 History Bicalutamide [Casodex] 50 mg PO QDAY #30 tablet 05/10/17 01/30/19 Unknown Rx Bisacodyl [Dulcolax suppos] 10 mg [place] QDAY PRN #30 supp.rect 05/10/17 01/30/19 Unknown Rx Docusate Sodium [Colace ORAL LIQ] 100 mg PO BID #60 oral.liqd 05/10/17 01/30/19 Unknown Rx Doxazosin [Cardura] 2 mg PO HS #60 tablet 05/10/17 01/30/19 Unknown Rx ISOSORBIDE MONOnitrate [Imdur ER] 30 mg PO QDAY #30 tablet 05/10/17 01/30/19 Unknown Rx Magnesium Hydroxide [Milk of 30 ml PO Q4H PRN #20 oral.liqd 05/10/17 01/30/19 Unknown Rx Magnesia] Megestrol [Megace] 20 mg PO DAILY PRN #30 tablet 05/10/17 01/30/19 Unknown Rx Tamsulosin [Flomax] 0.4 mg PO QDAY #30 capsule 05/10/17 01/30/19 Unknown Rx Active Medications: Generic Name Dose Route Start Last Admin Trade Name Freq PRN Reason Stop Dose Admin Acetaminophen 650 mg 01/30/19 11:39 Tylenol PO Q6H PRN Non Cardiac Pain or Temp>100.5 Acetaminophen/Hydrocodone Bitart 1 each 01/30/19 11:39 [place] 5/325 PO Q4H PRN Pain, Moderate (4-6) Albuterol 2.5 mg 01/30/19 11:33 Proventil IH Q4HRT PRN Shortness Of Breath Amlodipine Besylate 10 mg 01/30/19 18:00 02/02/19 10:46 Norvasc PO 10 mg QDAY [facility] Administration Aspirin 325 mg 01/31/19 12:00 02/02/19 10:45 Aspirin PO 325 mg QDAY [facility] Administration Carvedilol 3.125 mg 02/01/19 22:00 02/02/19 21:18 Coreg PO 3.125 mg BID [facility] Administration Docusate Sodium 100 mg 01/30/19 22:00 02/02/19 21:18 Colace PO Not Given BID [facility] Doxazosin Mesylate 2 mg 01/30/19 22:00 02/02/19 21:18 Cardura PO 2 mg HS [facility] Administration Furosemide 80 mg 01/30/19 18:00 02/03/19 05:15 Lasix IV 80 mg 0600,1800 [facility] Administration Azithromycin 500 mg/ Sodium 250 mls @ 250 mls/hr 01/31/19 10:00 02/02/19 12:25 Chloride IV 250 mls/hr Q24HR [facility] Administration Isosorbide Mononitrate 30 mg 01/30/19 18:00 02/02/19 10:45 Imdur PO 30 mg QDAY [facility] Administration Levofloxacin 250 mg 02/02/19 17:00 02/02/19 17:42 Levaquin PO Not Given Q24HR [facility] Magnesium Hydroxide 30 ml 01/30/19 17:18 Milk Of Magnesia PO Q4H PRN Constipation Metolazone 5 mg 01/30/19 18:00 02/02/19 10:45 Zaroxolyn PO 5 mg QDAY [facility] Administration Morphine Sulfate 2 mg 01/30/19 11:39 Morphine IV Q4H PRN Pain , Severe (7-10) Ondansetron HCl 4 mg 01/30/19 11:39 Zofran IV Q4H PRN Nausea And Vomiting Pantoprazole Sodium 40 mg 01/31/19 10:00 02/02/19 10:45 Protonix PO 40 mg QDAY [facility] Administration Polyethylene Glycol 17 gm 01/30/19 11:39 Miralax 3350 PO QDAY PRN Constipation Tamsulosin HCl 0.4 mg 01/31/19 10:00 02/02/19 10:45 Flomax PO 0.4 mg QDAY [facility] Administration
--- NOTE | 2019-02-03 10:29 | Progress Note ---
Assessment and Plan S/p lexiscan MPI stress test this AM which was negative for ischemia. Cont volume optimization per nephrology. Cont BB. No ACEI/ARB or aldactone at this time in setting of renal insufficiency. The patient has been seen in conjunction with Dr. Whiting who agrees with the assessment and plan of care. - Patient Problems (1) Acute HFrEF (heart failure with reduced ejection fraction) Current Visit: Yes Status: Acute (2) Cardiomyopathy Current Visit: Yes Status: Chronic (3) Acute respiratory failure Current Visit: Yes Status: Acute (4) Hypertensive crisis Current Visit: Yes Status: Acute (5) Acute on chronic renal failure Current Visit: Yes Status: Acute (6) UTI (urinary tract infection) Current Visit: Yes Status: Acute (7) Leukocytosis Current Visit: Yes Status: Acute (8) Pneumonia Current Visit: Yes Status: Suspected (9) History of prostate cancer Current Visit: Yes Status: Chronic (10) Elevated troponin Current Visit: Yes Status: Acute (11) Pericardial effusion Current Visit: Yes Status: Acute (12) Anemia Current Visit: Yes Status: Acute (13) Elevated LFTs Current Visit: Yes Status: Acute Subjective Date of service: 02/03/19 Principal diagnosis: Acute respiratory failure Interval history: pt for stress test. no current cardiac complaints. Objective Last Vital Signs Temp 98.2 F 02/03/19 04:48 Pulse 75 02/03/19 10:05 Resp 24 02/03/19 08:30 BP 148/75 02/03/19 09:20 Pulse Ox 98 02/03/19 08:30 - Physical Examination General: No Apparent Distress Neck: Positive: neck supple, trachea midline, JVD/HJR Cardiac: Positive: Reg Rate and Rhythm, S1/S2 Lungs: Positive: Decreased Breath Sounds Neuro: Positive: Grossly Intact Abdomen: Positive: Soft. Negative: Tender Skin: Negative: Rash, Wound Musculoskeletal: No Pain Extremities: Present: +2 Edema (BLE) - Labs and Meds CBC 02/03/19 Range/Units 05:54 Hgb 9.7 L (11.8-15.2) gm/dl Hct 29.9 L (35.5-45.6) % Plt Count 225 (140-440) K/mm3 Comprehensive Metabolic Panel 02/03/19 Range/Units 05:54 Sodium 139 (137-145) mmol/L Potassium 4.1 (3.6-5.0) mmol/L Chloride 96.6 L (98-107) mmol/L Carbon Dioxide 28 (22-30) mmol/L BUN 49 H (9-20) mg/dL Creatinine 2.8 H (0.8-1.5) mg/dL Glucose 102 H (75-100) mg/dL Calcium 8.4 (8.4-10.2) mg/dL - Imaging and Cardiology Echo: report reviewed ( EF 30-35%, LV mild to mod dilated, mild to mod LVH, abnormal diastolic function, LA severely dilated, mod MR, mod pulm HTN, moderate pericardial effusion. )
--- NOTE | 2019-02-03 11:36 | Event Note ---
Date: 02/03/19 Pt. off the floor for testing when I came by. Gelacio f/yesenia in AM.
--- NOTE | 2019-02-03 14:56 | Progress Note ---
Assessment and Plan Acute on chronic systolic heart failure: - treat with iv lasix bid, consulted Cardiology, 30-35% Ef on ECHO, - Stress test did not show any ischemia, likely nonischemic cardiomyopathy - Optimize medications, supplemental O2 Acute hypoxic respiratory failure: - likely from CHF - consulted Pulm, off BIPAP, cont O2 on nasal canula - will assess for home O2 Suspected Sepsis with bilateral pneumonia, WBC 23.5: - negative blood cultures, treat with ABX and nebs ARF/CKD stage 4 due to tubular stasis, - due to urinary retention and treat the heart failure, consulted Nephrology - renal function stable Transaminitis: get U/s, get hepatitis panel==>?gallbladder inflammed, Acute on chronic AOCD: monitor h/h closely H/o prostate cancer and urinary retention/bilateral hydronephrosis: - patient refuses heredia, monitor Urine outpt and renal function Elevated troponin: consulted Cardiology==>started iv heparin drip on 01/30/19, s/p stress test today showed no reversible ischemia, medical management for now DVT ppx sq heparin Disposition: Patient requesting for transfer to [facility] which is now pending, Possible d/c to home with HH if renal function stable following stress test tomorrow. Brief History: Patient is a 78 yo man with a history of hypertension, prostate cancer w/ bilateral hydronephrosis followed by Dr. Guzman, CHF and CKD 4 with last Cr 3.0 in 2017 (he was in ARF at the time) who presents to [facility] ED with SOB. His pulse ox was 66%. WBC 23.5, hemoglobin 10.6 w/ MCV 77, nl plt, CO2 19, bun 38, Creatinine 2.5, BG 203, AST 220, ALT 118, nl bilirubin, Alk phos 285, troponin 0.044, proBNP 18,064, pCXR Impression: Cardiomegaly and patchy bilateral perihilar opacities, left greater than right, findings may represent CHF with pulmonary edema. 2D ECHO conclusions left ventricular size is mild to moderate dilated, mild to moderated concentric LVH, severe global hypokinesis of the left ventricle is observed, estimated EF is 30-35%, abnormal left vnetriculare dysfucntion, left atrium is severely dilated, mild AR, moderate MR, evidence of moderate pulmonary hypertension, moderate pericardial effusion. Did not order HIDA scan because he is having trouble laying down due to the CHF Hospitalist Physical Gen: thin frail, ill appearing, mild increase accessory muscles, barrel chest, Awake, Alert, Orientated HEENT: NCAT, EOMI, PERRL, OP Clear Neck: supple, no adenopathy, no thyromegaly, no JVD CVS/Heart: Regular tachycardia, normal S1S2, pulses present bilaterally Chest/Lungs: bibasilar crackles, diminished bs bilateral, coarse bs bilateral but worse on the left, Symmetrical chest expansion, good air entry bilaterally GI/Abdomen: soft, NTND, protuding soft umbilicus, good bowel sounds, no guarding or rebound /Bladder: no suprapubic tenderness, no CVA or paraspinal tenderness Extermity/Skin: lymphedema with chronic venous stasis, bilateral leg edema MSK: FROM x 4 Neuro: CN 2-12 grossly intact, no new focal deficits Psych: calm Subjective Date of service: 02/03/19 Principal diagnosis: Acute respiratory failure Interval history: Patient seen and examined. Medical records and medication list reviewed. No acute event overnight noted by the RN. Patient denies any chest pain but complains of difficulty breathing with exertio n. Patient is tolerating diet. Still refusing Heredia catheter and dialysis if needed Discussed plan of care at bedside with patient Status post stress test today Objective - Constitutional Vitals: Vital Signs - 12hr 02/03/19 02/03/19 02/03/19 03:00 04:48 08:30 Temperature 98.2 F Pulse Rate 64 84 Respiratory 16 24 Rate Blood Pressure 146/91 O2 Sat by Pulse 96 98 Oximetry 02/03/19 02/03/19 02/03/19 08:49 09:15 09:16 Temperature Pulse Rate Respiratory Rate Blood Pressure 169/82 156/75 146/80 O2 Sat by Pulse Oximetry 02/03/19 02/03/19 02/03/19 09:17 09:18 09:20 Temperature Pulse Rate Respiratory Rate Blood Pressure 142/80 153/82 148/75 O2 Sat by Pulse Oximetry 02/03/19 10:05 Temperature Pulse Rate 75 Respiratory Rate Blood Pressure O2 Sat by Pulse Oximetry - Labs CBC & Chem 7: 02/03/19 05:54 02/04/19 07:53 Labs: Abnormal lab results 02/03/19 02/03/19 Range/Units 05:54 05:54 Hgb 9.7 L (11.8-15.2) gm/dl Hct 29.9 L (35.5-45.6) % Chloride 96.6 L (98-107) mmol/L BUN 49 H (9-20) mg/dL Creatinine 2.8 H (0.8-1.5) mg/dL Glucose 102 H (75-100) mg/dL
--- NOTE | 2019-02-03 15:01 | Vascular Lab Report ---
PROCEDURE: VL VENOUS DUPLEX LE BILAT HISTORY: swelling FINDINGS: Real-time ultrasound of the right leg and left leg was performed using grayscale and color Doppler images. These images demonstrate no evidence of deep venous thrombus in the right or left common femoral vein , superficial femoral vein, popliteal vein or posterior tibial vein. There is bilateral subcutaneous calf edema. IMPRESSION: No DVT in either leg This document is electronically signed by Herminio Vela MD., Feb 03 2019 02:59:46 PM ET
[2019-02-03] MEDS: ASPIRIN PO SCH (15:04)
[2019-02-03] MEDS: COLACE PO SCH ×2 (15:04→21:14)
[2019-02-03] MEDS: COREG PO SCH ×2 (15:04→21:13)
[2019-02-03] MEDS: IMDUR PO SCH (15:05)
[2019-02-03] MEDS: FLOMAX PO SCH (15:05)
[2019-02-03] MEDS: LEVAQUIN PO SCH (15:05)
[2019-02-03] MEDS: NORVASC PO SCH (15:08)
[2019-02-03] MEDS: PROTONIX PO SCH (15:08)
[2019-02-03] MEDS: ZAROXOLYN PO SCH (15:09)
[2019-02-03] MEDS: CARDURA PO SCH (21:13)
--- NOTE | 2019-02-04 02:26 | Treadmill Report ---
NUCLEAR PERFUSION STUDY REASON FOR STUDY: Congestive heart failure. IMAGING PROTOCOL: The patient received 10 mCi of Technetium 99m Tetrofosmin for resting image and 28 mCi of Technetium 99m Tetrofosmin for stress imaging. The imaging for the whole procedure was completed 30-90 minutes following the initial injection of Technetium 99m Tetrofosmin. The SPECT imaging in the 180 degree arc was performed in the right anterior oblique projection. Computerized reconstruction of the images was performed for analysis. IMAGING RESULTS: Cavity is dilated on both stress and rest. Distribution of radionuclide is normal in the anterior, inferior, septal, and apical regions. Gated SPECT, EF 23% with severe global hypokinesis. The patient infused Lexiscan with no EKG changes. SUMMARY: 1. Negative Lexiscan EKG. 2. No significant stress-induced ischemia. 3. Dilated cavity seen both stress and rest with normal myocardial perfusion, but with severe LV dysfunction, EF 23%. This is probable nonischemic cardiomyopathy. JOB# [id number] SRIDHAR/LASHAUN
[2019-02-04] MEDS: LASIX IV SCH ×2 (05:19→18:30)
[2019-02-04 09:17] LABS: Calcium 8.7 mg/dL (8.4-10.2)
--- NOTE | 2019-02-04 10:01 | Progress Note ---
Assessment and Plan 1. Acute kidney injury: JOSELITO superimposed on CKD stage 4 in the setting of CHF exacerbation. Suspect Cardio-renal syndrome. Renal US results noted. Gradual increase in BUN and creatinine is likely from diuresis. Will try to decrease Lasix. Monitor renal function. Renal prognosis is guarded to poor. Avoid nephrotoxic agents. Meds dosage based on GFR. 2. FEN: Volume overload, remain volume overloaded, continue IV Lasix and Metolazone. Patient still refusing Isolated UF / hemodialysis. Metabolic acidosis, improved. 3. CHF exacerbation. 4. Respiratory failure: Seen by Pulmonary. Was on BIPAP. 5. Hypertensive urgency: BP is better. 6. H/o prostate cancer with obstruction: Patient refused Mcmillan. Seen by Urologist. Monitor. 7. UTI: IV Abx. 8. Anemia. 9. Medical non-compliance: Compliance encouraged. Patient has been refusing multiple interventions, patient aware of the risks. Also d/w his ex over the phone per pt request. Subjective Date of service: 02/04/19 Principal diagnosis: Acute respiratory failure Interval history: Patient was seen and examined at the bedside. No new complaint. Objective - Vital Signs Vital signs: Vital Signs - 12hr 02/03/19 02/04/19 02/04/19 23:25 03:53 05:00 Temperature 98.5 F 98.4 F Pulse Rate 96 H 92 H 85 Respiratory 18 18 Rate Blood Pressure 130/81 114/68 O2 Sat by Pulse 95 96 Oximetry 02/04/19 08:33 Temperature 97.6 F Pulse Rate 47 L Respiratory 16 Rate Blood Pressure 133/66 O2 Sat by Pulse 99 Oximetry - General Appearance General appearance: well-developed, appears stated age, other (not in distress) EENT: ATNC, PERRL Neck: JVD, supple Respiratory: Present: Rales Cardiology: regular, S1S2, no murmurs Gastrointestinal: normoactive bowel sounds, no tenderness, no distended Integumentary: no rash Neurologic: no focal deficit, no asterixis Musculoskeletal: other (2+ edema of both LEs noted) - Lab 02/03/19 05:54 02/04/19 07:53 Most recent lab results Calcium 8.7 mg/dL (8.4-10.2) 02/04/19 07:53 Phosphorus 3.20 mg/dL (2.5-4.5) 02/01/19 06:59 Magnesium 1.90 mg/dL (1.7-2.3) 02/04/19 07:53 45.1 mg/dL (0.1-20.0) H 01/30/19 Unknown 64 mmol/L 01/30/19 Unknown Medications & Allergies - Medications Allergies/Adverse Reactions: Allergies No Known Allergies Allergy (Unverified 05/06/17 15:50) Home Medications: Home Medications Medication Instructions Recorded Confirmed Last Taken Type amLODIPine [Norvasc] 10 mg PO QDAY 05/06/17 01/30/19 05/06/17 History Bisacodyl [Dulcolax suppos] 10 mg [place] QDAY PRN #30 supp.rect 05/10/17 01/30/19 Unknown Rx Docusate Sodium [Colace ORAL LIQ] 100 mg PO BID #60 oral.liqd 05/10/17 01/30/19 Unknown Rx Doxazosin [Cardura] 2 mg PO HS #60 tablet 05/10/17 01/30/19 Unknown Rx ISOSORBIDE MONOnitrate [Imdur ER] 30 mg PO QDAY #30 tablet 05/10/17 01/30/19 Unknown Rx Magnesium Hydroxide [Milk of 30 ml PO Q4H PRN #20 oral.liqd 05/10/17 01/30/19 Unknown Rx Magnesia] Megestrol [Megace] 20 mg PO DAILY PRN #30 tablet 05/10/17 01/30/19 Unknown Rx Tamsulosin [Flomax] 0.4 mg PO QDAY #30 capsule 05/10/17 01/30/19 Unknown Rx Aspirin [Aspirin BABY CHEW TAB] 81 mg PO QDAY #30 tab.chew 02/04/19 Unknown Rx Carvedilol [Coreg] 3.125 mg PO BID #60 tablet 02/04/19 Unknown Rx Furosemide [Lasix TAB] 40 mg PO BID #60 tablet 02/04/19 Unknown Rx levoFLOXacin [Levaquin TAB] 500 mg PO QDAY #4 tablet 02/04/19 Unknown Rx metOLazone [Zaroxolyn] 5 mg PO QDAY #30 tablet 02/04/19 Unknown Rx Active Medications: Generic Name Dose Route Start Last Admin Trade Name Freq PRN Reason Stop Dose Admin Acetaminophen 650 mg 01/30/19 11:39 Tylenol PO Q6H PRN Non Cardiac Pain or Temp>100.5 Acetaminophen/Hydrocodone Bitart 1 each 01/30/19 11:39 [place] 5/325 PO Q4H PRN Pain, Moderate (4-6) Albuterol 2.5 mg 01/30/19 11:33 Proventil IH Q4HRT PRN Shortness Of Breath Amlodipine Besylate 10 mg 01/30/19 18:00 02/03/19 15:08 Norvasc PO 10 mg QDAY DEXTER Administration Aspirin 325 mg 01/31/19 12:00 02/03/19 15:04 Aspirin PO 325 mg QDAY DEXTER Administration Carvedilol 3.125 mg 02/01/19 22:00 02/03/19 21:13 Coreg PO 3.125 mg BID DEXTER Administration Docusate Sodium 100 mg 01/30/19 22:00 02/03/19 21:14 Colace PO Not Given BID DEXTER Doxazosin Mesylate 2 mg 01/30/19 22:00 02/03/19 21:13 Cardura PO 2 mg HS DEXTER Administration Furosemide 80 mg 01/30/19 18:00 02/04/19 05:19 Lasix IV 80 mg 0600,1800 DEXTER Administration Isosorbide Mononitrate 30 mg 01/30/19 18:00 02/03/19 15:05 Imdur PO 30 mg QDAY DEXTER Administration Levofloxacin 250 mg 02/02/19 17:00 02/03/19 15:05 Levaquin PO 250 mg Q24HR DEXTER Administration Magnesium Hydroxide 30 ml 01/30/19 17:18 02/03/19 21:17 Milk Of Magnesia PO 30 ml Q4H PRN Administration Constipation Metolazone 5 mg 01/30/19 18:00 02/03/19 15:09 Zaroxolyn PO 5 mg QDAY DEXTER Administration Morphine Sulfate 2 mg 01/30/19 11:39 Morphine IV Q4H PRN Pain , Severe (7-10) Ondansetron HCl 4 mg 01/30/19 11:39 Zofran IV Q4H PRN Nausea And Vomiting Pantoprazole Sodium 40 mg 01/31/19 10:00 02/03/19 15:08 Protonix PO 40 mg QDAY DEXTER Administration Polyethylene Glycol 17 gm 01/30/19 11:39 Miralax 3350 PO QDAY PRN Constipation Tamsulosin HCl 0.4 mg 01/31/19 10:00 02/03/19 15:05 Flomax PO 0.4 mg QDAY DEXTER Administration
[2019-02-04] MEDS: COREG PO SCH (11:08)
[2019-02-04] MEDS: ZAROXOLYN PO SCH (11:08)
[2019-02-04] MEDS: COLACE PO SCH (11:08)
[2019-02-04] MEDS: FLOMAX PO SCH (11:08)
[2019-02-04] MEDS: LEVAQUIN PO SCH (11:09)
[2019-02-04] MEDS: IMDUR PO SCH (11:09)
[2019-02-04] MEDS: PROTONIX PO SCH (11:09)
[2019-02-04] MEDS: ASPIRIN PO SCH (11:09)
[2019-02-04] MEDS: NORVASC PO SCH (11:10)
--- NOTE | 2019-02-04 11:10 | Progress Note ---
Assessment and Plan Cont volume optimization per nephrology. Patient still refusing Isolated UF / hemodialysis. Pt states today that he is agreeable to Mcmillan catheter placement. Cont BB. No ACEI/ARB or aldactone at this time in setting of renal insufficiency. The patient has been seen in conjunction with Dr. Whiting who agrees with the assessment and plan of care. - Patient Problems (1) Acute HFrEF (heart failure with reduced ejection fraction) Current Visit: Yes Status: Acute (2) Cardiomyopathy Current Visit: Yes Status: Chronic Plan to address problem: presumably nonischemic - stress test 02/03/2019 neg for ischemia (3) Acute respiratory failure Current Visit: Yes Status: Acute (4) Hypertensive crisis Current Visit: Yes Status: Acute (5) Acute on chronic renal failure Current Visit: Yes Status: Acute (6) UTI (urinary tract infection) Current Visit: Yes Status: Acute (7) Leukocytosis Current Visit: Yes Status: Acute (8) Pneumonia Current Visit: Yes Status: Suspected (9) History of prostate cancer Current Visit: Yes Status: Chronic (10) Elevated troponin Current Visit: Yes Status: Acute (11) Pericardial effusion Current Visit: Yes Status: Acute (12) Anemia Current Visit: Yes Status: Acute (13) Elevated LFTs Current Visit: Yes Status: Acute Subjective Date of service: 02/04/19 Principal diagnosis: Acute respiratory failure Interval history: pt sitting up at bedside, no current cardiac complaints. Objective Last Vital Signs Temp 97.6 F 02/04/19 08:33 Pulse 47 L 02/04/19 08:33 Resp 16 02/04/19 08:33 BP 133/66 02/04/19 08:33 Pulse Ox 99 02/04/19 08:33 - Physical Examination General: No Apparent Distress Neck: Positive: neck supple, trachea midline, JVD/HJR Cardiac: Positive: Reg Rate and Rhythm, S1/S2 Lungs: Positive: Decreased Breath Sounds Neuro: Positive: Grossly Intact Abdomen: Positive: Soft. Negative: Tender Skin: Negative: Rash, Wound Musculoskeletal: No Pain Extremities: Present: +2 Edema (BLE) - Labs and Meds Comprehensive Metabolic Panel 02/04/19 Range/Units 07:53 Sodium 143 (137-145) mmol/L Potassium 3.7 (3.6-5.0) mmol/L Chloride 96.5 L (98-107) mmol/L Carbon Dioxide 33 H (22-30) mmol/L BUN 58 H (9-20) mg/dL Creatinine 3.1 H (0.8-1.5) mg/dL Glucose 113 H (75-100) mg/dL Calcium 8.7 (8.4-10.2) mg/dL - Imaging and Cardiology Echo: report reviewed ( EF 30-35%, LV mild to mod dilated, mild to mod LVH, abnormal diastolic function, LA severely dilated, mod MR, mod pulm HTN, moderate pericardial effusion. )
[2019-02-04 12:43] VITALS: BP 110/71
--- NOTE | 2019-02-04 16:01 | Discharge Summary ---
Providers - Providers Date of Admission: 01/30/19 11:15 Date of discharge: 02/04/19 Attending physician: HECTOR RAHMAN 01/30/19 11:27 Consult to Physician [CONS] Routine Comment: Consulting Provider: HEDY JORGE Physician Instructions: Reason For Exam: CHF 01/30/19 11:29 Consult to Physician [CONS] Routine Comment: Consulting Provider: LUKE HODGSON Physician Instructions: Reason For Exam: Respiratory failure on bipap,evaluate for ICU/IMCU 01/30/19 11:36 Consult to Physician [CONS] Routine Comment: Consulting Provider: DHRUV HAY Physician Instructions: Reason For Exam: ARF 01/30/19 11:38 Occupational Therapy Evaluate and Treat [CONS] Routine Comment: Reason For Exam: ADLs evaluation Physical Therapy Evaluation and Treat [CONS] Routine Comment: Reason For Exam: gait evaluation/ambulatory dysfunction 01/31/19 11:24 Consult to Physician [CONS] Routine Comment: Consulting Provider: WADE BARAHONA Physician Instructions: I notified Reason For Exam: bilateral hydronephrosis, pt seen in the past Hospitalization Condition: Stable Hospital course: Patient is a 78 yo man with a history of hypertension, prostate cancer w/ bilateral hydronephrosis followed by Dr. Guzman, CHF and CKD 4 with last Cr 3.0 in 2017 (he was in ARF at the time) who presents to [facility] ED with SOB. His pulse Ox was 66%. He was admitted for CHF exacerbation and further management. - WBC 23.5, hemoglobin 10.6 w/ MCV 77, nl plt, CO2 19, bun 38, Creatinine 2.5, BG 203, AST 220, ALT 118, nl bilirubin, Alk phos 285, troponin 0.044, proBNP 18,064, - pCXR Impression: Cardiomegaly and patchy bilateral perihilar opacities, left greater than right, findings may represent CHF with pulmonary edema. - 2D ECHO conclusions left ventricular size is mild to moderate dilated, mild to moderated concentric LVH, severe global hypokinesis of the left ventricle is observed, estimated EF is 30-35%, abnormal left vnetriculare dysfucntion, left atrium is severely dilated, mild AR, moderate MR, evidence of moderate pulmonary hypertension, moderate pericardial effusion. - Did not order HIDA scan because he is having trouble laying down due to the CHF - Stress test unremarkable for ischemia Discharge diagnosis and management Acute on chronic systolic heart failure: - treated with iv lasix bid, supplemental O2, consulted Cardiology, 30-35% Ef on ECHO, - Stress test did not show any ischemia, likely nonischemic cardiomyopathy - Optimized medications on discharge - will f/u with cardiology outpt post-discharge Acute hypoxic respiratory failure: Resolved - likely from CHF - consulted Pulm, placed on BIPAP then weaned off to O2 on nasal canula -Assessed for home O2 on discharge but Did not qualify for home O2 Suspected Sepsis with bilateral pneumonia, WBC 23.5: - negative blood cultures, Empirically treated with ABX and nebs ARF/CKD stage 4 due to tubular stasis, - due to urinary retention and heart failure exacerbation, consulted Nephrology - renal function stable Transaminitis: obtained U/s ==>?gallbladder inflammed, LFT stable, will f/u outpt Acute on chronic AOCD: monitored h/h closely H/o prostate cancer and urinary retention/bilateral hydronephrosis: - patient refused heredia, monitored Urine outpt and renal function - will f/u urology outpt Elevated troponin: consulted Cardiology==>started iv heparin drip on 01/30/19, s/p stress test today showed no reversible ischemia, medical management for now per ear nose throat physician DVT ppx sq heparin Disposition: Patient requesting for transfer to [facility] was pending, d/c to home with HH as renal function stable and negative stress test. Hospitalist Physical Gen: thin frail, ill appearing, mild increase accessory muscles, barrel chest, Awake, Alert, Orientated HEENT: NCAT, EOMI, PERRL, OP Clear Neck: supple, no adenopathy, no thyromegaly, no JVD CVS/Heart: Regular tachycardia, normal S1S2, pulses present bilaterally Chest/Lungs: bibasilar crackles, diminished bs bilateral, coarse bs bilateral but worse on the left, Symmetrical chest expansion, good air entry bilaterally GI/Abdomen: soft, NTND, protuding soft umbilicus, good bowel sounds, no guarding or rebound /Bladder: no suprapubic tenderness, no CVA or paraspinal tenderness Extermity/Skin: lymphedema with chronic venous stasis, bilateral leg edema MSK: FROM x 4 Neuro: CN 2-12 grossly intact, no new focal deficits Psych: calm Disposition: - TO HOME OR SELFCARE Time spent for discharge: 34 minutes Core Measure Documentation - Palliative Care Palliative Care/ Comfort Measures: Not Applicable - Core Measures Any of the following diagnoses?: heart failure - Heart Failure Discharge Requirements ALTHEA/ARB for LVSD if EF <40%: No Reason for no ALTHEA/ARB: Renal impairment Beta nakia at discharge: Yes Exam - Constitutional Vitals: Temp Pulse Resp BP Pulse Ox 98.1 F 71 18 110/71 99 02/04/19 12:09 02/04/19 12:09 02/04/19 12:09 02/04/19 12:02/04/19 12:09 Plan Activity: advance as tolerated Weight Bearing Status: Non-Weight Bearing Diet: low fat, low salt Special Instructions: restrict fluid intake to (1.2L daily), record daily BP diary Additional Instructions: Follow-up with the urologist in 1 week. Repeat CBC and BMP in 1 week. Follow-up with spice cleaner in 1 week. d/c home with heredia catheter Follow up with: LOREN JI [Other] - 3-5 Days Prescriptions: Aspirin [Aspirin BABY CHEW TAB] 81 mg PO QDAY #30 tab.chew Carvedilol [Coreg] 3.125 mg PO BID #60 tablet Furosemide [Lasix TAB] 40 mg PO BID #60 tablet levoFLOXacin [Levaquin TAB] 500 mg PO QDAY #4 tablet metOLazone [Zaroxolyn] 5 mg PO QDAY #30 tablet
[2019-02-05] MEDS ORDERED: BABY ASPIRIN PO SCH (10:00)
== END 2019-02-04 19:00 | disposition home or self-care (01) | DRG 871 ==
LOC: ED 08:35 → 4A 11:15
PROVIDERS: ADMIT Internal Medicine; ATTEND Internal Medicine
PROC: 4A033R1 Measurement of Arterial Saturation, Peripheral, Percutaneous Approach (ICD-10-PCS; principal; 2019-01-30)
PROC: 5A09357 Assistance with Respiratory Ventilation, Less than 24 Consecutive Hours, Continuous Positive Airway Pressure (ICD-10-PCS; 2019-01-30)
DX: A41.9 Sepsis, unspecified organism (principal); I50.23 Acute on chronic systolic (congestive) heart failure; J96.01 Acute respiratory failure with hypoxia; J18.9 Pneumonia, unspecified organism; I13.0 Hypertensive heart and chronic kidney disease with heart failure and stage 1 through stage 4 chronic kidney disease, or unspecified chronic kidney disease; N18.4 Chronic kidney disease, stage 4 (severe); I16.1 Hypertensive emergency; N17.9 Acute kidney failure, unspecified; I31.3 Pericardial effusion (noninflammatory); N13.6 Pyonephrosis; I42.0 Dilated cardiomyopathy; K42.9 Umbilical hernia without obstruction or gangrene; M19.91 Primary osteoarthritis, unspecified site; D63.8 Anemia in other chronic diseases classified elsewhere; I16.0 Hypertensive urgency; I08.0 Rheumatic disorders of both mitral and aortic valves; Z85.46 Personal history of malignant neoplasm of prostate; I27.22 Pulmonary hypertension due to left heart disease
CPT/HCPCS: 36415; 71045; 76700; 78452; 80048; 80053; 80061; 81001; 82140; 82570; 82803; 82805; 82962; 83735; 83880; 84100; 84300; 84443; 84484; 85007; 85014; 85018; 85025; 85027; 85049; 85520; 85610; 85730; 87040; 87076; 87086; 87186; 93005; 93010; 93017; 93306; 93970; G0378; A9502; J0456; J0696; J1644; J1940; J2785; J7050; J9999